=== PATIENT | male | born 1965 | race Caucasian/White ===

== ENCOUNTER 2016-11-11 13:28 | Emergency (ER) | payer OTHER ==
[~2016-11-11] VITALS: Ht 185.4 cm; Wt 136.0 kg
[~2016-11-11 13:28] MED LIST: ALLO300T2 PO; AMLO5TAB2 PO; ASPI-435 PO; ATEN50TA PO; CIALIS PO; CLON0.1T12 PO; CYCL10TA6 PO; HYDR25TA4 PO; LISI40TA PO; MELO15TA3 PO; PRLSR20 PO; SIME80CH23 PO; ZOLP10TA6 PO
[2016-11-11 13:33] VITALS: TEMP 36.5; Ht 185.4 cm; Wt 136.0 kg
[2016-11-11] MEDS ORDERED: LIDOCAINE/EPINEPH/TETRACAINE 1 EA SYR EXT STA (14:36)
--- NOTE | 2016-11-11 15:03 | EMERGENCY ROOM VISIT NOTE ---
History Report prepared by Adore: Jack Iraheta Under the Supervision of: Dr. Mark Villa M.D. First contact with patient: 14:27 Chief Complaint: FACIAL PAIN/INJURY Stated Complaint: CUTS ON FACE AND BLACK EYE History of Present Illness The patient is a 51 year old male who presents to the Emergency Room with complaints of constant facial pain since this morning after a fall. The patient states that he was drinking last night, and some time he fell into his night stand. The patient denies any headache, tooth pain, jaw pain, neck pain, shortness of breath, chest pain, abdominal pain or leg swelling. He states that his knees hurt, and he has a rash on his left arm. He states that his vision was bad this morning, though it has gotten better. The patient states that he is not on Coumadin, though he is on blood pressure medications. Source of History: patient Onset: this morning Position: other (face) Timing: constant Associated Symptoms: No neck pain, No chest pain, No SOB, No abdominal pain , No rash Note: Associated symptoms: Knee pain Review of Systems See HPI for pertinent positives & negatives. A total of 10 systems reviewed and were otherwise negative. Past Medical & Surgical Medical Problems: (1) Benign hypertension Old medical records were reviewed. Nurse's notes were reviewed and I agree with. Social History Smoking Status: Current Every Day Smoker Marital Status: Housing Status: lives with family Occupation Status: employed Current/Historical Medications Scheduled Amlodipine Besylate (Norvasc), 5 MG PO BID Aspirin (Aspirin 81), 81 MG PO DAILY Atenolol (Tenormin), 75 MG PO DAILY Clonidine Hcl (Catapres), 0.1 MG PO BID Hydrochlorothiazide (Hctz), 25 MG PO DAILY Lisinopril (Zestril), 40 MG PO DAILY Omeprazole (Prilosec), 20 MG PO DAILY Scheduled PRN Zolpidem Tartrate (Zolpidem Tartrate), 10 MG PO HS PRN for Insomnia Allergies Coded Allergies: Bupropion (Unverified Adverse Reaction, Intermediate, SKIN IRRITATION, ) Physical Exam Vital Signs Date Time Temp Pulse Resp B/P (MAP) Pulse Ox O2 Delivery O2 Flow Rate FiO2 11/11/16 17:21 99 18 159/91 96 11/11/16 15:30 62 17 166/92 96 Room Air 7/15/17 13:33 36.5 64 18 202/98 95 Room Air Physical Exam General: Non-ill appearing middle-aged male in no acute distress. GCS 15 HEENT: 1cm laceration of the right medical eyebrow. There is also a 2-3 cm laceration in the right lateral upper eyelid. These are relatively superficial and do not damage underlying structures but will will require closure with sutures. She has Bruising around the eye and and abrasion to the cheek on the right. No hyphema. Normal cephalic. Pupils are equal round and reactive to light. Extraocular movements are intact. Oropharynx is pink with moist mucous membranes. No swelling of the mouth lips or tongue. Neck: Supple with a midline trachea. No meningeal signs or stiffness, no JVD or bruits. No Stridor. Chest: Clear to auscultation bilaterally. No wheezes or rhonchi. No increased work of breathing. Heart: regular rate and rhythm. Abdomen: Soft nontender, nondistended without rebound guarding or rigidity. Extremities: Mild abrasions to the right knee. No cyanosis clubbing or edema. No calf tenderness or assymetry Spine/Back. Non tender to palpation. No CVA tenderness Skin: Good turgor without rashes. Neurologic exam: Cranial nerves two through 12 are intact. Motor and sensation are intact and symmetrical throughout. Medical Decision & Procedures ER Provider Diagnostic Interpretation: Radiology results as stated below per my review and radiologist interpretation: FACIAL BONES-MXILLOFAC WITHOUT CT DOSE: HISTORY: Trauma. Pain. eval for trauma TECHNIQUE: Multiaxial CT images of the maxillofacial region were performed and reformatted in the coronal plane without the use of contrast. COMPARISON: None. FINDINGS: The visualized cervical spine, skull base, pterygoid plates, nasal bones, lamina papyracea, orbital floors, mandible, and zygomatic arches are intact. No fractures. The orbits are unremarkable. Moderate right periorbital and prefrontal soft tissue edema. Mucous retention cyst right maxillary sinus. IMPRESSION: Right periorbital and prefrontal soft tissue edema. No acute bony abnormality. The above report was generated using voice recognition software. It may contain grammatical, syntax or spelling errors. Electronically signed by: Darian Currie M.D. 11/11/2016 3:42 PM Dictated Date/Time: 11/11/2016 3:38 PM RIGHT KNEE 1 OR 2 VIEWS ROUTINE CLINICAL HISTORY: eval for traumA Right pain COMPARISON: None. DISCUSSION: The bones and joint spaces appear intact. There is no evidence of fracture, dislocation or bony disease. There is no evidence for soft tissue swelling. IMPRESSION: Negative study. The above report was generated using voice recognition software. It may contain grammatical, syntax or spelling errors. Electronically signed by: Darian Currie M.D. 11/11/2016 3:29 PM Dictated Date/Time: 11/11/2016 3:29 PM LEFT KNEE 1 OR 2 VIEWS ROUTINE CLINICAL HISTORY: eval for trauma o pain COMPARISON: None. DISCUSSION: The bones and joint spaces appear intact. There is no evidence of fracture, dislocation or bony disease. There is no evidence for soft tissue swelling. IMPRESSION: Negative study. The above report was generated using voice recognition software. It may contain grammatical, syntax or spelling errors. Electronically signed by: Darian Currie M.D. 11/11/2016 3:29 PM Dictated Date/Time: 11/11/2016 3:28 PM HEAD WITHOUT CONTRAST (CT) CT DOSE: 1093.42 mGy.cm HISTORY: Trauma eval for trauma TECHNIQUE: Multiaxial CT images of the head were performed without the use of intravenous contrast. Comparison: None. Findings: The paranasal sinuses and mastoid air cells are clear. Moderate cerebellar as well as frontal atrophy are in no evidence for acute intracranial hemorrhage. Ventricular system is midline. Extracranial right periorbital edema. Impression: No acute intracranial abnormality. The above report was generated using voice recognition software. It may contain grammatical, syntax or spelling errors. Electronically signed by: Darian Currie M.D. 11/11/2016 3:37 PM Dictated Date/Time: 11/11/2016 3:36 PM Laboratory Results 11/11/16 15:00 Red Blood Count 4.80, Mean Corpuscular Volume 86.5, Mean Corpuscular Hemoglobin 30.0, Mean Corpuscular Hemoglobin Concent 34.7, Mean Platelet Volume 11.1, Neutrophils (%) (Auto) 82.8, Lymphocytes (%) (Auto) 11.6, Monocytes (%) (Auto) 4.7, Eosinophils (%) (Auto) 0.7, Basophils (%) (Auto) 0.1, Neutrophils # (Auto) 5.61, Lymphocytes # (Auto) 0.79, Monocytes # (Auto) 0.32, Eosinophils # (Auto) 0.05, Basophils # (Auto) 0.01 11/11/16 15:00 Test 11/11/16 15:00 11/11/16 15:21 White Blood Count 6.79 K/uL (4.8-10.8) Red Blood Count 4.80 M/uL (4.7-6.1) Hemoglobin 14.4 g/dL (14.0-18.0) Hematocrit 41.5 % (42-52) Mean Corpuscular Volume 86.5 fL (80-100) Mean Corpuscular Hemoglobin 30.0 pg (25-34) Mean Corpuscular Hemoglobin Concent 34.7 g/dl (32-36) Platelet Count 131 K/uL (130-400) Mean Platelet Volume 11.1 fL (7.4-10.4) Neutrophils (%) (Auto) 82.8 % Lymphocytes (%) (Auto) 11.6 % Monocytes (%) (Auto) 4.7 % Eosinophils (%) (Auto) 0.7 % Basophils (%) (Auto) 0.1 % Neutrophils # (Auto) 5.61 K/uL (1.4-6.5) Lymphocytes # (Auto) 0.79 K/uL (1.2-3.4) Monocytes # (Auto) 0.32 K/uL (0.11-0.59) Eosinophils # (Auto) 0.05 K/uL (0-0.5) Basophils # (Auto) 0.01 K/uL (0-0.2) RDW Standard Deviation 42.9 fL (36.4-46.3) RDW Coefficient of Variation 13.6 % (11.5-14.5) Immature Granulocyte % (Auto) 0.1 % Immature Granulocyte # (Auto) 0.01 K/uL (0.00-0.02) Anion Gap 6.0 mmol/L (3-11) Est Creatinine Clear Calc Drug Dose 135.9 ml/min Estimated GFR () 111.1 Estimated GFR (Non- 95.9 BUN/Creatinine Ratio 14.0 (10-20) Calcium Level 8.9 mg/dl (8.5-10.1) Total Bilirubin 0.5 mg/dl (0.2-1) Direct Bilirubin < 0.1 mg/dl (0-0.2) Aspartate Amino Transf (AST/SGOT) 43 U/L (15-37) Alanine Aminotransferase (ALT/SGPT) 54 U/L (12-78) Alkaline Phosphatase 50 U/L (45-117) Total Protein 7.2 gm/dl (6.4-8.2) Albumin 4.4 gm/dl (3.4-5.0) Lipase 89 U/L (73-393) Bedside Troponin I < 0.030 ng/ml (0-0.045) Laboratory studies as stated above per my review. Medications Administered Medications (Trade) Dose Ordered Sig/Giuliana Route Start Time Stop Time Status Last Admin Dose Admin Tetracaine/ Epinephrine/ Lidocaine (L.e.t. Gel 4%/ 1:100/0.5%) 1 ea NOW STAT EXT 11/11/16 14:36 11/11/16 14:40 DC 11/11/16 15:45 1 EA Procedure Location: face Total length: 3cm and 1cm Complexity: simple Verbal consent was obtained after the risks and benefits were explained, including but not limited to bleeding, scarring, infection, pain, and bone/joint /nerve damage. At this time, the risks of the procedure are less than the risks of NOT performing the procedure. A time out was taken and the correct patient and site identified. The skin was prepped with betadine. The target area was anesthetized with LET gel. Copious irrigation was performed using normal saline. The skin was re-prepped with betadine and a sterile field set. The wound was explored for foreign bodies and none found. Examination revealed no injury to deep structures such as tendons, bone, or significant blood vessels. Debridement was not performed. The wound edges were approximated using 6-0 Ethilon simple interrupted nylon sutures. Hemostasis and excellent approximation was achieved. Antibacterial ointment and a sterile dressing applied. Detailed wound care instructions and signs and symptoms of infection reviewed with the patient. No complications and the patient tolerated the procedure well. ECG Indication: other (facial injury) Rate (beats per minute): 60 Rhythm: normal sinus Findings: no acute ischemic change, no ectopy Comparison ECG Date: no prior available ED Course 1427: Past medical records reviewed. The patient was evaluated in room A4, and a complete history and physical examination were performed. 1436: L.E.T. Gel 4%/1:100/0.5% 1ea EXT 1531: I reevaluated the patient, and noticed that he had a laceration on his eye lid. 1641: I reevaluated the patient, and I performed a laceration repair. I discussed the results and treatment plan with him. He verbalized agreement of the treatment plan. The patient was discharged home. Medical Decision Differentials include, but are not limited to; head injury, laceration, traumatic injury, orthopedic injury, arrhythmia, electrolyte or metabolic abnormality. Blood Pressure Screening: Patient was found to have a slightly elevated blood pressure due to circumstances. I do not believe that the patient requires hypertension monitoring. Medication Reconciliation: I attest that I have personally reviewed the patient' s current medication list. This patient comes in as described above. He suffered a fall last night he had apparently been drinking. He has some facial trauma as well as 2 lacerations. He has no visual change. On exam, he has no hyphema or proptosis. He has normal ocular movements. CAT scan of his head and face are unremarkable for any fracture or significant injuries. He has no evidence of significant trauma to his knees and x-rays were negative. He has no evidence suggest acute coronary syndrome or arrhythmia with normal troponin and EKG. I did repair the lacerations as outlined above he tolerated this well. These sutures will need to be removed in 5 days. He believes is up-to-date on his tetanus booster. He will be discharged home he will return if: Any problems with the wound such as redness, pus, fever, drainage, any new problems or concerns. He is happy the plan and discharged to home. Impression Primary Impression: Facial laceration Additional Impressions: Facial contusion Fall Scribe Attestation The scribe's documentation has been prepared under my direction and personally reviewed by me in its entirety. I confirm that the note above accurately reflects all work, treatment, procedures, and medical decision making performed by me. Departure Information Dispostion Home / Self-Care Referrals Yasemin Newsome (PCP) Forms HOME CARE DOCUMENTATION FORM, IMPORTANT VISIT INFORMATION Patient Instructions [facility] Additional Instructions Rest. Drink plenty of fluids. Apply bacitracin to wound twice a day Return if: Redness pus, fever, drainage, any problems with the wound, headache, any new problems or concerns, visual problems Follow-up in 5 days here suggest call the for suture removal, sooner if any problems Problem Qualifiers
[2016-11-11 15:20] LABS: BASO % 0.1 %; BASO ABS # 0.01 K/uL (0-0.2); COMPLETE YES; EOS % 0.7 %; HEMATOCRIT 41.5 % (42-52); IG% 0.1 %; LYMPH % 11.6 %; LYMPH ABS # 0.79 K/uL (1.2-3.4); MEAN CELL VOLUME 86.5 fL (80-100); MEAN CORPUSCULAR HGB CONC 34.7 g/dl (32-36); MEAN PLATELET VOLUME 11.1 fL (7.4-10.4); MONO % 4.7 %; NEUT % 82.8 %; PLATELET COUNT 131 K/uL (130-400); WHITE BLOOD COUNT 6.79 K/uL (4.8-10.8)
--- NOTE | 2016-11-11 15:30 | DIAGNOSTIC IMAGING REPORT ---
RIGHT KNEE 1 OR 2 VIEWS ROUTINE CLINICAL HISTORY: eval for traumA Right pain COMPARISON: None. DISCUSSION: The bones and joint spaces appear intact. There is no evidence of fracture, dislocation or bony disease. There is no evidence for soft tissue swelling. IMPRESSION: Negative study. The above report was generated using voice recognition software. It may contain grammatical, syntax or spelling errors. Electronically signed by: Darian Currie M.D. 11/11/2016 3:29 PM Dictated Date/Time: 11/11/2016 3:29 PM
--- NOTE | 2016-11-11 15:30 | DIAGNOSTIC IMAGING REPORT ---
LEFT KNEE 1 OR 2 VIEWS ROUTINE CLINICAL HISTORY: eval for trauma o pain COMPARISON: None. DISCUSSION: The bones and joint spaces appear intact. There is no evidence of fracture, dislocation or bony disease. There is no evidence for soft tissue swelling. IMPRESSION: Negative study. The above report was generated using voice recognition software. It may contain grammatical, syntax or spelling errors. Electronically signed by: Darian Currie M.D. 11/11/2016 3:29 PM Dictated Date/Time: 11/11/2016 3:28 PM
--- NOTE | 2016-11-11 15:38 | DIAGNOSTIC IMAGING REPORT ---
HEAD WITHOUT CONTRAST (CT) CT DOSE: 1093.42 mGy.cm HISTORY: Trauma eval for trauma TECHNIQUE: Multiaxial CT images of the head were performed without the use of intravenous contrast. Comparison: None. Findings: The paranasal sinuses and mastoid air cells are clear. Moderate cerebellar as well as frontal atrophy are in no evidence for acute intracranial hemorrhage. Ventricular system is midline. Extracranial right periorbital edema. Impression: No acute intracranial abnormality. The above report was generated using voice recognition software. It may contain grammatical, syntax or spelling errors. Electronically signed by: Darian Currie M.D. 11/11/2016 3:37 PM Dictated Date/Time: 11/11/2016 3:36 PM
[2016-11-11 15:40] LABS: ALT/SGPT 54 U/L (12-78); BLOOD UREA NITROGEN 13 mg/dl (7-18); CALCIUM 8.9 mg/dl (8.5-10.1); CARBON DIOXIDE 28 mmol/L (21-32); CHLORIDE 102 mmol/L (98-107); CREATININE 0.91 mg/dl (0.60-1.40); GLUCOSE 135 mg/dl (70-99); POTASSIUM 3.7 mmol/L (3.5-5.1); SODIUM 136 mmol/L (136-145)
[2016-11-11 15:43] LABS: ALKALINE PHOSPHATASE 50 U/L (45-117); AST/SGOT 43 U/L (15-37)
--- NOTE | 2016-11-11 15:43 | DIAGNOSTIC IMAGING REPORT ---
FACIAL BONES-MXILLOFAC WITHOUT CT DOSE: HISTORY: Trauma. Pain. eval for trauma TECHNIQUE: Multiaxial CT images of the maxillofacial region were performed and reformatted in the coronal plane without the use of contrast. COMPARISON: None. FINDINGS: The visualized cervical spine, skull base, pterygoid plates, nasal bones, lamina papyracea, orbital floors, mandible, and zygomatic arches are intact. No fractures. The orbits are unremarkable. Moderate right periorbital and prefrontal soft tissue edema. Mucous retention cyst right maxillary sinus. IMPRESSION: Right periorbital and prefrontal soft tissue edema. No acute bony abnormality. The above report was generated using voice recognition software. It may contain grammatical, syntax or spelling errors. Electronically signed by: Darian Currie M.D. 11/11/2016 3:42 PM Dictated Date/Time: 11/11/2016 3:38 PM
[2016-11-11 17:21] VITALS: BP 159/91; PULSE 99; O2SAT 96
== END 2016-11-11 17:20 | disposition home or self-care (01) ==
LOC: C.EDB 13:30 → C.EDA 17:20
DX: S01.111A Laceration without foreign body of right eyelid and periocular area, initial encounter (principal); S00.11XA Contusion of right eyelid and periocular area, initial encounter; S00.81XA Abrasion of other part of head, initial encounter; W18.30XA Fall on same level, unspecified, initial encounter; M25.561 Pain in right knee; M25.562 Pain in left knee; I10 Essential (primary) hypertension; F17.200 Nicotine dependence, unspecified, uncomplicated; Z79.82 Long term (current) use of aspirin

== ENCOUNTER 2016-11-17 11:20 | Emergency (ER) | payer OTHER ==
[~2016-11-17] VITALS: Ht 188 cm; Wt 133.8 kg
[~2016-11-17 11:20] MED LIST changes: -ALLO300T2 PO; -CIALIS PO; -CYCL10TA6 PO; -MELO15TA3 PO; -SIME80CH23 PO
[2016-11-17 11:22] VITALS: BP 178/103; PULSE 61; TEMP 36.7; O2SAT 96; Ht 188 cm; Wt 133.8 kg
--- NOTE | 2016-11-17 11:55 | EMERGENCY ROOM VISIT NOTE ---
ED Visit Note First contact with patient: 11:41 CHIEF COMPLAINT: Suture removal This patient returns to the ED today for removal of sutures that were placed 6 days ago. There has been no swelling, redness, or drainage from the wound. The patient feels like the laceration is healing well. REVIEW OF SYSTEMS: Head: No headache, injury or neck pain. Skin: No rash, new lesions, or masses. General: No fever or chills, fatigue, loss of appetite , or significant recent weight gain or loss. PMH: The patient is healthy; there is no significant medical or surgical history. SOCIAL HISTORY: Patient lives at home. PHYSICAL EXAM: Vital Signs: Reviewed Nurse's notes. There is a sutured wound on the right eye region with no signs of infection. There is no erythema, swelling, or tenderness. EMERGENCY DEPARTMENT COURSE: The sutures were removed without any difficulty and there was no separation of the wound edges. The patient's blood pressure was found to be elevated here today, he notes that he checks his blood pressure regularly and has been taking medication for many years. This is believed to be situational, and he is to follow-up with his family doctor. DIAGNOSIS: Healing laceration and suture removal Problem List Medical Problems: (1) Benign hypertension Status: Chronic Current/Historical Medications Scheduled Amlodipine Besylate (Norvasc), 5 MG PO BID Aspirin (Aspirin 81), 81 MG PO DAILY Atenolol (Tenormin), 75 MG PO DAILY Clonidine Hcl (Catapres), 0.1 MG PO BID Hydrochlorothiazide (Hctz), 25 MG PO DAILY Lisinopril (Zestril), 40 MG PO DAILY Omeprazole (Prilosec), 20 MG PO DAILY Scheduled PRN Zolpidem Tartrate (Zolpidem Tartrate), 10 MG PO HS PRN for Insomnia Allergies Coded Allergies: Bupropion (Unverified Adverse Reaction, Intermediate, SKIN IRRITATION, ) Vital Signs Date Time Temp Pulse Resp B/P (MAP) Pulse Ox O2 Delivery O2 Flow Rate FiO2 11/17/16 11:22 36.7 61 18 178/103 96 Room Air Departure Information Impression Primary Impression: Encounter for removal of sutures Dispostion Home / Self-Care Condition GOOD Referrals No Doctor, Assigned (PCP) Patient Instructions [facility] Additional Instructions DISCHARGE INSTRUCTIONS AND TREATMENT: Wash any remaining crusts off of the wound today and resume your normal activities.
== END 2016-11-17 12:02 | disposition home or self-care (01) ==
LOC: C.EDB 11:22 → C.EDD 12:02
DX: S01.111D Laceration without foreign body of right eyelid and periocular area, subsequent encounter (principal); X58.XXXD Exposure to other specified factors, subsequent encounter; I10 Essential (primary) hypertension; Z79.82 Long term (current) use of aspirin

== ENCOUNTER 2024-01-18 15:20 | Observation (INO) ==
--- NOTE | 2024-01-18 15:41 | Emergency Department Note ---
Impression & Plan Acute confusion, Chest pain, Anemia, Leukopenia, Hyponatremia ED Provider Note NAME: MUNIRA BARLOW AGE: 58 SEX: M : 1965 ARRIVES VIA: Ambulance INFORMANT: Patient ED PROVIDER(S): Jaxson Beach DO CHIEF COMPLAINT: Confusion, chest pain HPI: Patient is a 58-year-old male with a past medical history of polyneuropathy, hypertension and CAD who presents to the ER for not feeling well at this time. He notes around 1230 he had about 5 to 10 minutes worse of a chest pain in the middle of the chest going across. No arm pain or jaw pain. No shortness of breath. 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 The confusion eventually cleared up and he was able to call a friend to call police and brought him in. He denies any headache but admits to worsening blurry vision. No chest pain or shortness of breath now. No arm pain or jaw pain. No weakness or numbness in the arms or legs. No other exacerbating or remitting factors. He admits to a previous cath with occluded coronary. ADDITIONAL HISTORY OBTAINED: Per HPI Chronic Medical/Social Conditions Affecting Care: Per HPI PAST MEDICAL HISTORY:See Below PAST SURGICAL HISTORY:See Below FAMILY HISTORY:See Below SOCIAL HISTORY:See Below HOME MEDICATIONS:See Below ALLERGIES:See Below VITALS:See Below PHYSICAL EXAMINATION: GENERAL: Sitting up in bed, alert, well appearing, well nourished, no distress, non-toxic EYE EXAM: normal conjunctiva. PERRL and EOM's intact. OROPHARYNX: no exudate, no erythema, lips, buccal mucosa, and tongue normal and mucous membranes are moist NECK: supple, no nuchal rigidity, no adenopathy, non-tender LUNGS: Clear to auscultation. Normal chest wall mechanics HEART: no murmurs, S1 normal and S2 normal ABDOMEN: abdomen soft, non-tender, normo-active bowel sounds, no masses, no rebound or guarding. BACK: Back is symmetrical on inspection and there is no deformity, no midline tenderness, no CVA tenderness. SKIN: no rashes and no bruising UPPER EXTREMITIES: upper extremities are grossly normal. LOWER EXTREMITIES: No pitting edema. NEURO EXAM: Normal sensorium, cranial nerves II-XII intact, normal speech, no weakness of arms, no weakness of legs. No drift. Finger to nose intact. Gross sensation intact. MEDICAL DECISION MAKING: Patient is a 58-year-old male who presents ER for the above-stated complaint. IV was established medicos obtained. Labs show leukopenia 3.7. Mild anemia 11. BMP with a hyponatremia at 130. LFTs with mild transaminitis. Troponin was negative. Lipase is normal. [facility] at 1.1. CT angios of the head and neck were negative. Patient is complete neurologically intact. He was updated bedside. Discussed case with the hospitalist for further evaluation management treatment. Consults/Care Managements Discussions: Per [facility] Triage Nursing notes reviewed. Limited review of prior medical records performed Vital Signs: reviewed and remarkable for no significant abnormalities Differential diagnosis: Cardiac ischemia, aortic dissection, pulmonary embolism, pneumothorax, pneumonia, pericarditis, myocarditis, esophageal rupture, GERD, cholecystitis, pancreatitis, musculoskeletal, as well as other pathologies. ER treatment provided: See below Diagnostics interpreted by me include EKG and cardiac monitoring as listed below: -Cardiac Monitoring: An order was placed for continuous cardiac monitoring. The monitor shows a rate of 70 with sinus rhythm. -ECG: Sinus rhythm at 74 Normal axis No PVCs QTc 452 -Laboratory studies:Interpreted by me as stated above in MDM and shown below. Imaging studies: Xrays: As interpreted by me: Portable AP upright 1 view of the chest shows no focal infiltrate CTs show: CT angios of the head neck showed no acute pathology Procedures:none Critical Care: None Past Med/Surg History Problem List (Updated 01/18/24 @ 21:44 by Jaxson Beach DO) Hyponatremia (Acute) Leukopenia (Acute) Anemia (Acute) Chest pain (Acute) Acute confusion (Acute) Stroke-like symptoms Lumbar spondylosis Chronic gluteal pain Lumbar radiculopathy Encounter for pre-operative examination Left ankle pain Left ankle sprain Greater trochanteric bursitis of right hip Tear of gluteus medius tendon Atrophy of muscle of lower leg Hip pain, chronic Idiopathic polyneuropathy Osteoarthritis of right knee Tear of peroneal tendon of left foot Hx s/p rehab and boot x 2 years (no surgery) Left ankle instability Medical History (Updated 01/18/24 @ 21:44 by Jaxson Beach DO) Morbid obesity Osteoarthritis 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 Sleep apnea CPAP Follows with [facility] pulmonology Anxiety and depression Gout Hypertension Follows with [facility] Surgical History Hx of colonoscopy Hx of removal of cyst Right ear Hx of arthroscopy of shoulder Left + repair Family History Other Diabetes Stroke Social History Smoking Status: Former smoker Second Hand Exposure: No; Do You Dip or Chew Tobacco: Yes (1-2 cans/day; advised none DOS); Hx Alcohol Use: Yes Alcohol type: hard liquor Hx Substance Use: No Preferred Language: Czech Communication Ability: Effective Hearing Ability: Normal Toe Laster Required: No Beliefs That Will Affect Care: None marital status: Current Living Situation: Spouse and Family current occupational status: employed 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 Feels Safe at Home: Yes Assistive Devices: CPAP Allergies Allergies Allergy/AdvReac Type Severity Reaction Status Date / Time bupropion AdvReac Intermediate SKIN Verified 01/18/24 19:31 IRRITATION Home Meds Home Medications Medication Instructions Recorded Confirmed allopurinol 300 mg tablet 600 mg PO QAM 01/22/20 01/18/24 clonidine HCl 0.3 mg tablet 0.3 mg PO BID 01/22/20 01/18/24 escitalopram oxalate 10 mg tablet 10 mg PO QAM 01/22/20 01/18/24 lisinopril 40 mg tablet 20 mg PO QAM 01/22/20 01/18/24 lithium carbonate 300 mg capsule 450 mg PO HS 01/22/20 01/18/24 loratadine 10 mg tablet 10 mg PO QAM 01/22/20 01/18/24 zolpidem 10 mg tablet 10 mg PO HS PRN Sleep 12/27/20 01/18/24 spironolactone 50 mg tablet 50 mg PO QAM 06/21/22 01/18/24 aspirin 81 mg tablet,delayed 81 mg PO QAM 01/30/23 01/18/24 release isosorbide mononitrate 60 mg 60 mg PO QAM 04/08/23 01/18/24 tablet,extended release 24 hr metoprolol succinate 25 mg 25 mg PO QAM 04/08/23 01/18/24 tablet,extended release 24 hr omeprazole 20 mg capsule,delayed 20 mg PO DAILYBB 04/08/23 01/18/24 release terazosin 5 mg capsule 5 mg PO HS 04/08/23 01/18/24 furosemide 20 mg tablet 20 mg PO Q OTHER DAY 01/18/24 01/18/24 Results & Data (ED) Vital Signs Vital Signs - 24 hr 01/18/24 15:22 01/18/24 15:22 01/18/24 15:28 Temperature 36.9 C Temperature Source Oral Pulse Rate 73 74 Pulse Rate [Apical] Respiratory Rate 20 Blood Pressure 158/80 H Blood Pressure [Right Arm] Blood Pressure Mean 106 Blood Pressure Mean [Right Arm] Pulse Oximetry 96 96 Oxygen Delivery Method Room Air Room Air Sepsis Recent Fever Within 48 Hours No Sepsis New/Unexplained Change in Mental Status N/A Sepsis Action Taken by Nursing No Action Required 01/18/24 15:45 01/18/24 17:00 Temperature Temperature Source Pulse Rate Pulse Rate [Apical] 63 Respiratory Rate 21 Blood Pressure Blood Pressure [Right Arm] 153/81 H Blood Pressure Mean Blood Pressure Mean [Right Arm] 105 Pulse Oximetry 97 96 Oxygen Delivery Method Room Air Sepsis Recent Fever Within 48 Hours Sepsis New/Unexplained Change in Mental Status Sepsis Action Taken by Nursing Laboratory Data 01/18/24 15:45 01/18/24 15:45 Lab Results 01/18/24 Range/Units 15:45 WBC 3.71 L (4.8-10.8) K/ul RBC 3.27 L (4.70-6.10) M/uL Hgb 11.0 L (14.0-18.0) g/dl Hct 32.8 L (42.0-52.0) % MCV 100.3 H (80.0-100.0) fL MCH 33.6 (25.0-34.0) pg MCHC 33.5 (32.0-36.0) g/dL RDW Std Deviation 49.6 H (36.4-46.3) fL RDW Coeff of Sonia 13.6 (11.5-14.5) % Plt Count 59 L (130-400) K/uL MPV 10.9 (9.4-12.4) fL Immature Gran % (Auto) 0.5 % Neut % (Auto) 81.2 % Lymph % (Auto) 9.4 % Hood % (Auto) 7.0 % Eos % (Auto) 1.6 % Baso % (Auto) 0.3 % Neut # (Auto) 3.01 (1.40-6.50) K/uL Lymph # (Auto) 0.35 L (1.20-3.40) K/uL Hood # (Auto) 0.26 (0.11-0.59) K/uL Eos # (Auto) 0.06 (0.00-0.50) K/uL Baso # (Auto) 0.01 (0.00-0.20) K/uL Immature Gran # (Auto) 0.02 (0.01-0.20) K/uL Sodium 130 L (136-145) mmol/L Potassium 4.5 (3.5-5.1) mmol/L Chloride 102 (98-107) mmol/L Carbon Dioxide 21 (21-32) mmol/L Anion Gap 7 (3-11) BUN 19 (6-23) mg/dl Creatinine 1.08 (0.6-1.4) mg/dl Est Cr Clr Drug Dosing 113.8 ml/min Est GFR ( Amer) 86.0 ml/min Est GFR (Non-Af Amer) 74.2 ml/min BUN/Creatinine Ratio 17.6 (10-20) Glucose 122 H (70-99(Fasting)) mg/dl Calcium 9.4 (8.6-10.3) mg/dl Total Bilirubin 0.4 (0.2-1.0) mg/dl AST 64 H (13-39) U/L ALT 85 H (7-52) U/L Alkaline Phosphatase 36 (34-104) U/L Troponin I High Sens 3.2 (0-20) pg/ml Total Protein 6.2 (6.0-8.3) gm/dl Albumin 4.3 (3.4-5.0) gm/dl Globulin 1.9 L (2.5-4.0) gm/dl Albumin/Globulin Ratio 2.3 H (0.9-2) Lipase 34 (11-82) U/L [facility] 1.1 (0.6-1.2) mmol/L Administered Medications Discontinued Medications Sodium Chloride (Nss) 1,000 mls @ 999 mls/hr IV .Q1H1M ONE Stop: 09/20/24 16:36 Last Infusion: 01/18/24 17:59 Dose: Infused Documented By: Admin: 01/18/24 16:27 Dose: 999 mls/hr Documented By: ELO Ioversol (Optiray 320 125ml) 118 ml IV ONCE ONE Stop: 01/18/24 17:23 Last Admin: 01/18/24 17:23 Dose: 118 ml Documented By: EDK Imaging Data Radiologist's Impression: Chest X-Ray 01/18/24 15:24 XR chest 1V portable HISTORY: Chest pain, nonspecific COMPARISON: Chest 12/15/2023. FINDINGS: No pneumothorax. No pleural effusions. The cardiac silhouette remains enlarged. No focal lung consolidations to suggest a pneumonia. No evidence for pulmonary edema. No acute fractures identified. A few bibasilar linear densities favor subsegmental atelectasis or scarring. There are low lung volumes. IMPRESSION: No significant change compared to the prior study. No acute process. Stable cardiomegaly. ACT 112: Negative or not required by law. Electronically signed by: Patrick Swanson M.D. 01/18/2024 4:00 PM Head CTA 01/18/24 15:36 CT angio head wo/w CLINICAL HISTORY: Altered mental status. COMPARISON STUDY: Head CT and CTA of the head December 15, 2023. TECHNIQUE: Unenhanced and arterial phase imaging of the head was performed. Intravenous injection of 120 cc of Optiray 320 IV was uneventful. Sagittal and coronal reconstructions were viewed as well as maximal intensity projections on an independent 3-D workstation. Automated exposure control was utilized for the study. A dose lowering technique was utilized adhering to the principles of ALARA. FINDINGS: No acute intracranial hemorrhage, midline shift or mass effect is present. Ventricular system is stable. The basal cisterns are patent. There are nodular axial collections. Cerebellar atrophy is again noted. There are no findings to suggest acute dural sinus thrombosis or acute territorial infarct. A large right mastoid effusion with fluid within the right middle ear is unchanged. The bilateral M1, M2, A1 and A2 segments are patent. There is moderate plaque within the bilateral cavernous carotids without significant stenosis. No intracranial vessel occlusion is identified. There is persistence of the right posterior cerebral artery. There is no intracranial aneurysm. IMPRESSION: 1. No acute intracranial findings. 2. No large vessel occlusion. No intracranial aneurysm. 3. No change in a right mastoid effusion with fluid within the right middle ear. ACT 112: Negative or not required by law. Electronically signed by: Darinel Yusuf M.D. 01/18/2024 5:42 PM Neck CTA 01/18/24 15:36 CT ANGIOGRAPHY OF THE NECK WITH CONTRAST CLINICAL HISTORY: Altered mental status. COMPARISON STUDY: CTA of the neck December 15, 2023. Technique: CT angiography of the carotid and vertebral arteries was obtained using Optiray and 3D reconstruction on an independent workstation. NASCET criteria was utilized. Automated exposure control was utilized for the study. A dose lowering technique was utilized adhering to the principles of ALARA. CT DOSE: 1249.85 mGy.cm Findings: Visualized portions of the lung apices are unremarkable. There is no cervical spine fracture. There is no cervical lymphadenopathy. There is extensive calcified plaque within the right carotid bifurcation which results in 30% stenosis of the proximal right internal carotid artery. There is moderate plaque within the proximal left internal carotid artery without stenosis. There is moderate stenosis at the origin of the right vertebral artery, suboptimally assessed on this exam. Left vertebral artery is patent. There is no aneurysm or dissection within the neck. Tortuosity of the distal cervical bilateral internal carotid arteries is incidentally noted. IMPRESSION: 1. 30% stenosis of the proximal right internal carotid artery due to calcified atherosclerotic plaque. No stenoses within the cervical left internal carotid artery. 2. Moderate stenosis at the origin of the right vertebral artery. ACT 112: Negative or not required by law. Electronically signed by: Darinel Yusuf M.D. 01/18/2024 5:56 PM Discharge Plan Visit Data Chief Complaint: Chest Pain Stated Complaint: Chest pain ED Provider: Jaxson Beach Discharge Problem: Acute confusion, Chest pain, Anemia, Leukopenia, Hyponatremia Patient Disposition: Admitted As Inpatient Discharge Instructions Interventions: ED Discharge Assessment Last Done: 01/18/24 20:30 Discharge Problem: Chest pain Qualifiers: Chest pain type: unspecified Qualified Code(s): R07.9 - Chest pain, unspecified Anemia Qualifiers: Anemia type: unspecified type Qualified Code(s): D64.9 - Anemia, unspecified Leukopenia Qualifiers: Leukopenia type: unspecified Qualified Code(s): D72.819 - Decreased white blood cell count, unspecified
--- NOTE | 2024-01-18 16:02 | XRay Report ---
XR chest 1V portable HISTORY: Chest pain, nonspecific COMPARISON: Chest 12/15/2023. FINDINGS: No pneumothorax. No pleural effusions. The cardiac silhouette remains enlarged. No focal oscar ng consolidations to suggest a pneumonia. No evidence for pulmonary edema. No acute fractures identif ied. A few bibasilar linear densities favor subsegmental atelectasis or scarring. There are low lung volumes. IMPRESSION: No significant change compared to the prior study. No acute process. Stable cardiomegaly. ACT 112: Negative or not required by law. Electronically signed by: Patrick Swanson M.D. 01/18/2024 4:00 PM
[2024-01-18 16:11] LABS: Basophils # (auto) 0.01 K/uL (0.00-0.20); Basophils % (auto) 0.3 %; Eosinophils # (auto) 0.06 K/uL (0.00-0.50); Eosinophils % (auto) 1.6 %; Hematocrit (blood only) 32.8 % (42.0-52.0); Immature Granulocytes # (auto) 0.02 K/uL (0.01-0.20); Immature Granulocytes % (auto) 0.5 %; Lymphocytes # (auto) 0.35 K/uL (1.20-3.40); Lymphocytes % (auto) 9.4 %; Mean Corpuscular Hemoglobin 33.6 pg (25.0-34.0); Mean Corpuscular Hgb Conc 33.5 g/dL (32.0-36.0); Mean Corpuscular Volume 100.3 fL (80.0-100.0); Mean Platelet Volume 10.9 fL (9.4-12.4); Monocytes # (auto) 0.26 K/uL (0.11-0.59); Neutrophils # (auto) 3.01 K/uL (1.40-6.50); Neutrophils % (auto) 81.2 %; Platelet Count 59 K/uL (130-400); RDW Coefficient of Variation 13.6 % (11.5-14.5); RDW Standard Deviation 49.6 fL (36.4-46.3); Red Blood Count 3.27 M/uL (4.70-6.10); White Blood Count 3.71 K/ul (4.8-10.8)
[2024-01-18] MEDS: SODIUM CHLORIDE 0.9% 1,000 ML IV ONE (16:27)
[2024-01-18 16:32] LABS: Albumin Globulin Ratio 2.3 (0.9-2); Albumin Level 4.3 gm/dl (3.4-5.0); BUN Creatinine Ratio 17.6 (10-20); Bilirubin,Total 0.4 mg/dl (0.2-1.0); Calcium 9.4 mg/dl (8.6-10.3); Creatinine Clr Calc Pharmacy 113.8 ml/min; Est GFR (Non-African American) 74.2 ml/min; Globulin 1.9 gm/dl (2.5-4.0); Potassium 4.5 mmol/L (3.5-5.1); Total Protein 6.2 gm/dl (6.0-8.3)
[2024-01-18 16:37] LABS: Troponin I High Sensitivity 3.2 pg/ml (0-20)
[2024-01-18] MEDS: OPTIRAY 320 125ml IV ONE (17:23)
--- NOTE | 2024-01-18 17:43 | CT Scan Report ---
CT angio head wo/w CLINICAL HISTORY: Altered mental status. COMPARISON STUDY: Head CT and CTA of the head December 15, 2023. TECHNIQUE: Unenhanced and arterial phase imaging of the head was performed. Intravenous injection of 120 cc of Optiray 320 IV was uneventful. Sagittal and coronal reconstructions were viewed as well as maximal intensity projections on an independent 3-D workstation. Automated exposure control was utili zed for the study. A dose lowering technique was utilized adhering to the principles of ALARA. FINDINGS: No acute intracranial hemorrhage, midline shift or mass effect is present. Ventricular syst em is stable. The basal cisterns are patent. There are nodular axial collections. Cerebellar atrophy is again noted. There are no findings to suggest acute dural sinus thrombosis or acute territorial in farct. A large right mastoid effusion with fluid within the right middle ear is unchanged. The bilate ral M1, M2, A1 and A2 segments are patent. There is moderate plaque within the bilateral cavernous ca rotids without significant stenosis. No intracranial vessel occlusion is identified. There is p ersistence of the right posterior cerebral artery. There is no intracranial aneurysm. IMPRESSION: 1. No acute intracranial findings. 2. No large vessel occlusion. No intracranial aneurysm. 3. No change in a right mastoid effusion with fluid within the right middle ear. ACT 112: Negative or not required by law. Electronically signed by: Darinel Yusuf M.D. 01/18/2024 5:42 PM
--- NOTE | 2024-01-18 17:58 | CT Scan Report ---
CT ANGIOGRAPHY OF THE NECK WITH CONTRAST CLINICAL HISTORY: Altered mental status. COMPARISON STUDY: CTA of the neck December 15, 2023. Technique: CT angiography of the carotid and vertebral arteries was obtained using Optiray and 3D rec onstruction on an independent workstation. NASCET criteria was utilized. Automated exposure control was utilized for the study. A dose lowering technique was utilized adhering to the principles of ALA RA. CT DOSE: 1249.85 mGy.cm Findings: Visualized portions of the lung apices are unremarkable. There is no cervical spine fractur e. There is no cervical lymphadenopathy. There is extensive calcified plaque within the right carotid bifurcation which results in 30% stenosis of the proximal right internal carotid artery. There is mo derate plaque within the proximal left internal carotid artery without stenosis. There is moderate st enosis at the origin of the right vertebral artery, suboptimally assessed on this exam. Left vertebra l artery is patent. There is no aneurysm or dissection within the neck. Tortuosity of the distal cerv ical bilateral internal carotid arteries is incidentally noted. IMPRESSION: 1. 30% stenosis of the proximal right internal carotid artery due to calcified atherosclerotic plaque . No stenoses within the cervical left internal carotid artery. 2. Moderate stenosis at the origin of the right vertebral artery. ACT 112: Negative or not required by law. Electronically signed by: Darinel Yusuf M.D. 01/18/2024 5:56 PM
--- NOTE | 2024-01-18 20:43 | History & Physical Report ---
Date of Service January 18, 2024 Assessment & Plan (1) Stroke-like symptoms: Plan Patient is a 58-year-old male with past medical history significant for bipolar disorder,sleep apnea, CAD, hypertension, chronic diastolic heart failure, prediabetes, gout, GERD, presenting with concern for episodes of dizziness and confusion while driving as well as chest pain. Altered mental status, transient Dizziness Strokelike symptoms patient with known history of intermittent orthostasis, hyponatremia. Previous dizziness improved after decrease in terazosin Head CTA unremarkable Neck CTA noting "30% stenosis of the proximal right internal carotid artery due to calcified atherosclerotic plaque" and "Moderate stenosis at the origin of the right vertebral artery." Brain MRI pending Echo pending Orthostatic vitals pending Lyme screen pending UA pending PT OT eval, speech eval Neurology consult appreciate further recs Chest pain EKG with no acute changes Troponin x 1 within normal limits, continue to trend Echo pending as above Continue to monitor on telemetry Chronic alcohol use Patient states that he drinks 2 shot glasses daily of [employer] [place] States he has done this for a year, states before that he drank beer for about 10 years daily Last drink was yesterday AWSS at risk protocol with as needed Ativan banana bag ordered Continue to monitor on telemetry Pancytopenia Anemia Patient pancytopenic CBC in July 2022 in [facility] was normal at that time Peripheral smear pending Anemia panel with iron studies, ferritin, folate and B12 pending Hyponatremia Chronic history of this Sodium 130 on admission urine studies pending received a liter of fluid in the emergency room Continue to monitor with a.m. labs Continue other home meds as ordered. DVT prophylaxis: SCDs in the setting of thrombocytopenia Diet: Heart healthy Dispo: Admit to med/surg with telemetry History of Present Illness Chief Complaint: Dizziness, confusion Primary Care Provider: Yasemin Newsome PA-C Patient is a 58-year-old male with past medical history significant for bipolar disorder,sleep apnea, CAD, hypertension, chronic diastolic heart failure, prediabetes, gout, GERD, presenting with concern for episodes of dizziness and confusion while driving as well as chest pain. 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 Noted dizziness and episodes of confusion. States he already has cataracts and knows he should not be driving so he pulled over with episode of dizziness and confusion. States that he has had 3 episodes of dizziness and confusion this week and this has him very concerned. States that it feels like sometimes he cannot find words or he "" zones out." States that when the ambulance came he was able to answer some questions but not others. At the time of admission denies current symptoms states that chest pain and confusion has resolved. States this is the first time that he has had associated chest pain, does follow with cardiology and states he was told that his heart is "good". Epic chart review shows patient has had intermittent orthostatic hypotension as well as dizziness and has been having his medications adjusted to help. Terazosin has been decreased. States his spironolactone was also recently decreased. States that he is typically prescribed lithium 450 mg for his bipolar however the pharmacy does not have the 150 mg pill in stock. Leaves that his symptoms are related to his medications. Patient is agreeable to staying overnight but jokingly asks what time he will be discharged in the morning. Patient states that he drinks 2 shot glasses daily of Instant [employer]. States he has done this for a year, states before that he drank beer for about 10 years daily but was told to stop that. Last drink was yesterday. Allergies Allergy/AdvReac Type Severity Reaction Status Date / Time bupropion AdvReac Intermediate SKIN Verified 01/18/24 19:31 IRRITATION Home Medications Medication Instructions Recorded Confirmed Type allopurinol 300 mg tablet 600 mg PO QAM 01/22/20 01/18/24 History clonidine HCl 0.3 mg tablet 0.3 mg PO BID 01/22/20 01/18/24 History escitalopram oxalate 10 mg tablet 10 mg PO QAM 01/22/20 01/18/24 History lisinopril 40 mg tablet 20 mg PO QAM 01/22/20 01/18/24 History lithium carbonate 300 mg capsule 450 mg PO HS 01/22/20 01/18/24 History loratadine 10 mg tablet 10 mg PO QAM 01/22/20 01/18/24 History zolpidem 10 mg tablet 10 mg PO HS PRN Sleep 12/27/20 01/18/24 History spironolactone 50 mg tablet 50 mg PO QAM 06/21/22 01/18/24 History aspirin 81 mg tablet,delayed 81 mg PO QAM 10/03/23 09/20/24 History release isosorbide mononitrate 60 mg 60 mg PO QAM 04/08/23 01/18/24 History tablet,extended release 24 hr metoprolol succinate 25 mg 25 mg PO QAM 04/08/23 01/18/24 History tablet,extended release 24 hr omeprazole 20 mg capsule,delayed 20 mg PO DAILYBB 04/08/23 01/18/24 History release terazosin 5 mg capsule 5 mg PO HS 04/08/23 01/18/24 History furosemide 20 mg tablet 20 mg PO Q OTHER DAY 01/18/24 01/18/24 History Past Med/Surg History Problem List (Updated 01/18/24 @ 21:11 by Jimena Borrego MD) Stroke-like symptoms Lumbar spondylosis Chronic gluteal pain Lumbar radiculopathy Encounter for pre-operative examination Left ankle pain Left ankle sprain Greater trochanteric bursitis of right hip Tear of gluteus medius tendon Atrophy of muscle of lower leg Hip pain, chronic Idiopathic polyneuropathy Osteoarthritis of right knee Tear of peroneal tendon of left foot Hx s/p rehab and boot x 2 years (no surgery) Left ankle instability Medical History (Updated 01/18/24 @ 21:11 by Jimena Borrego MD) Morbid obesity Osteoarthritis 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 Sleep apnea CPAP Follows with [facility] pulmonology Anxiety and depression Gout Hypertension Follows with [facility] cardio/[facility] Surgical History Hx of colonoscopy Hx of removal of cyst Right ear Hx of arthroscopy of shoulder Left + repair Family History Other Diabetes Stroke Social History Smoking Status: Former smoker Second Hand Exposure: No; Do You Dip or Chew Tobacco: Yes (1-2 cans/day; advised none DOS); Hx Alcohol Use: Yes Alcohol type: hard liquor Hx Substance Use: No Preferred Language: Colombian Communication Ability: Effective Hearing Ability: Normal Manufacturing Engineering Manager Required: No Beliefs That Will Affect Care: None marital status: Current Living Situation: Spouse and Family current occupational status: employed 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 No acute distress Psych: Appropriate mood and affect Neuro: hands tremulous, CN 2 through 12 grossly intact HEENT: NC/AT CV: RRR Resp: Breath sounds clear bilaterally, no increased effort of breathing. Abdomen: protuberant, nontender Extremities: trace edema in lower extremities bilaterally. Results & Data Results & Data Vital Signs (Past 12 Hours) Vital Signs Temp Pulse Pulse Resp BP BP Pulse Ox 01/18/24 17:00 63 21 153/81 H 96 01/18/24 15:45 97 01/18/24 15:28 74 01/18/24 15:22 96 01/18/24 15:22 36.9 C 73 20 158/80 H 96 O2 Del Method 01/18/24 17:00 01/18/24 15:45 Room Air 01/18/24 15:28 01/18/24 15:22 Room Air 01/18/24 15:22 Room Air Diagnostic Findings Chest X-Ray 01/18/24 15:24 XR chest 1V portable HISTORY: Chest pain, nonspecific COMPARISON: Chest 12/15/2023. FINDINGS: No pneumothorax. No pleural effusions. The cardiac silhouette remains enlarged. No focal lung consolidations to suggest a pneumonia. No evidence for pulmonary edema. No acute fractures identified. A few bibasilar linear densities favor subsegmental atelectasis or scarring. There are low lung volumes. IMPRESSION: No significant change compared to the prior study. No acute process. Stable cardiomegaly. ACT 112: Negative or not required by law. Electronically signed by: Patrick Swanson M.D. 01/18/2024 4:00 PM Head CTA 01/18/24 15:36 CT angio head wo/w CLINICAL HISTORY: Altered mental status. COMPARISON STUDY: Head CT and CTA of the head December 15, 2023. TECHNIQUE: Unenhanced and arterial phase imaging of the head was performed. Intravenous injection of 120 cc of Optiray 320 IV was uneventful. Sagittal and coronal reconstructions were viewed as well as maximal intensity projections on an independent 3-D workstation. Automated exposure control was utilized for the study. A dose lowering technique was utilized adhering to the principles of ALARA. FINDINGS: No acute intracranial hemorrhage, midline shift or mass effect is present. Ventricular system is stable. The basal cisterns are patent. There are nodular axial collections. Cerebellar atrophy is again noted. There are no findings to suggest acute dural sinus thrombosis or acute territorial infarct. A large right mastoid effusion with fluid within the right middle ear is unchanged. The bilateral M1, M2, A1 and A2 segments are patent. There is moderate plaque within the bilateral cavernous carotids without significant stenosis. No intracranial vessel occlusion is identified. There is persistence of the right posterior cerebral artery. There is no intracranial aneurysm. IMPRESSION: 1. No acute intracranial findings. 2. No large vessel occlusion. No intracranial aneurysm. 3. No change in a right mastoid effusion with fluid within the right middle ear. ACT 112: Negative or not required by law. Electronically signed by: Darinel Yusuf M.D. 01/18/2024 5:42 PM Neck CTA 01/18/24 15:36 CT ANGIOGRAPHY OF THE NECK WITH CONTRAST CLINICAL HISTORY: Altered mental status. COMPARISON STUDY: CTA of the neck December 15, 2023. Technique: CT angiography of the carotid and vertebral arteries was obtained using Optiray and 3D reconstruction on an independent workstation. NASCET criteria was utilized. Automated exposure control was utilized for the study. A dose lowering technique was utilized adhering to the principles of ALARA. CT DOSE: 1249.85 mGy.cm Findings: Visualized portions of the lung apices are unremarkable. There is no cervical spine fracture. There is no cervical lymphadenopathy. There is extensi ve calcified plaque within the right carotid bifurcation which results in 30% stenosis of the proximal right internal carotid artery. There is moderate plaque within the proximal left internal carotid artery without stenosis. There is moderate stenosis at the origin of the right vertebral artery, suboptimally assessed on this exam. Left vertebral artery is patent. There is no aneurysm or dissection within the neck. Tortuosity of the distal cervical bilateral internal carotid arteries is incidentally noted. IMPRESSION: 1. 30% stenosis of the proximal right internal carotid artery due to calcified atherosclerotic plaque. No stenoses within the cervical left internal carotid artery. 2. Moderate stenosis at the origin of the right vertebral artery. ACT 112: Negative or not required by law. Electronically signed by: Darinel Yusuf M.D. 01/18/2024 5:56 PM
[2024-01-18] MEDS ORDERED: LORazepam 2 MG/1 ML VIAL IV PRN (21:09)
[2024-01-18] MEDS ORDERED: PHARMACIST DISCHARGE MED REC CONSULT PRN (21:09)
[2024-01-18 22:17] LABS: Appearance Urine Clear (Clear); Bacteria Urine Automated None Seen (None Seen); Bilirubin Urine Negative (Negative); Blood Urine Negative (Negative); Cast Urine Automated 0-2 /lpf (0-2); Color Urine Yellow; Epithelial Cell Urine Auto 0-2 /hpf (0-2); Glucose Urine UA Negative (Negative); Ketones Urine Negative (Negative); Leukocyte Esterase Urine Trace (Negative); Nitrite Urine Negative (Negative); Protein Urine Negative (Negative); RBC Urine Automated 0-2 /hpf (0-2); Specific Gravity Urine 1.018 (1.000-1.030); Urobilinogen Urine Negative (Negative); WBC Urine Automated 0-5 /hpf (0-5)
[2024-01-18] MEDS: MULTI-VITAMIN INFUSION 10 ML, THIAMINE HCL 100 MG, FOLIC ACID 1 MG in SODIUM CHLORIDE 0... IV ONE (22:37)
[2024-01-18] MEDS: NICOTINE 21 MG/24 HR TDSY TD SCH (22:54)
[2024-01-18] MEDS: PANTOprazole 40 MG TAB PO STA (22:56)
[2024-01-18] MEDS: TERAZOSIN HCL 5 MG CAP PO STA (23:04)
[2024-01-18] MEDS: ZOLPIDEM TARTRATE 5 MG TAB PO PRN (23:04)
[2024-01-18] MEDS: LITHIUM CARBONATE 450 MG TABCR PO STA (23:04)
--- OUTSIDE RECORDS SUMMARY | 2024-01-18 23:39 | External Medical Summary | Summary of Care ---
Author Name Unknown Organization [facility] Address [address] [place] [address] Phone [phone] Care Team Providers Care Bottom Bleacher Name Role Phone Yasemin Newsome PA-C Primary Care Provider [phone] Encounter Details Date Type Department Care Team (Late st Contact Info) Description 01/14/2024 12:30 PM EDT Telemedicine Psychiatry, [address] [place] [address] Mao Santos MD [address] [place] [address] Bipolar 1 disorder (HCC)* Allergies Active Allergy Reactions Criticality Noted Date Comments Bupropion High 01/22/2020 Other reaction(s): SKIN IRRITATION Chlorthalidone Other (Please comment) Medium hyponatremia documented as of this encounter (statuses as of 01/14/2024) Medications Medication Sig Dispensed Refills Start Date End Date Status CPAP every night at bedtime. Active Pulse OximeterIndications:F amily history of pulmonary fibrosis,SOB (shortness of breath),Air hunger,TURNER (dyspnea on exertion),Pulmonary nodule Use as directed. Use to monitor heart rate and oxygen levels daily 1 Each 1 08/04/2022 Active Aspirin 81 MG Oral Tablet Delayed Release Take 1 Tablet by mouth in the morning. 12/04/2022 Active Metoprolol Succinate ER 25 MG Oral Tablet Extended Release 24 Hour (toPROL XL)Indications:HTN, goal below 140/90 TAKE 1 TABLET BY MOUTH IN THE MORNING 90 Tablet 3 01/26/2023 Active cloNIDine HCl 0.3 MG Oral TabletIndications:HTN , goal below 140/90 Take 1 tablet by mouth twice daily 180 Tablet 3 04/05/2023 Active Zolpidem Tartrate 10 MG Oral Tablet (Ambien)Indications:S leep apnea, obstructive TAKE 1 TABLET BY MOUTH AT BEDTIME NEEDED FOR SLEEP MUST WEAR CPAP. DO NOT TAKE WITH NARCOTICS OR ALCOHOL 30 Tablet 04/10/2023 Active Magnesium Oxide -Mg Supplement 400 (240 Mg) MG Oral Tablet (Mag-Ox)Indications:H ypomagnesemia Take 1 Tablet by mouth in the morning. 90 Tablet 3 04/17/2023 Active Terazosin HCl 5 MG Oral Capsule (Hytrin)Indications:H TN, goal below 140/90 Take 1 Capsule by mouth at bedtime. 06/20/2023 Active Isosorbide Mononitrate ER 60 MG Oral Tablet Extended Release 24 Hour (Imdur)Indications:Hy pertensive urgency,ASCVD (arteriosclerotic cardiovascular disease) TAKE 1 TABLET BY MOUTH IN THE MORNING 90 Tablet 3 07/23/2023 Active Omeprazole 20 MG Oral Capsule Delayed Release (PriLOSEC) TAKE 1 CAPSULE BY MOUTH AT BEDTIME OR FIRST THING IN THE MORNING 90 Capsule 1 08/17/2023 Active [place] Carbonate 300 MG Oral Capsule (Eskalith) Take 2 Capsules by mouth every night at bedtime. 60 Capsule 5 09/10/2023 Active Lisinopril 40 MG Oral TabletIndications:HTN , goal below 140/90 TAKE 1/2 (ONE-HALF) TABLET BY MOUTH IN THE MORNING 15 Tablet 3 09/18/2023 Active Furosemide 20 MG Oral Tablet (Lasix)Indications:Ch ronic diastolic heart failure (HCC) TAKE 1 TABLET BY MOUTH EVERY OTHER DAY 45 Tablet 3 10/24/2023 Active EQ All Day Allergy Relief 10 MG Oral Tablet (Loratadine) Take 1 tablet by mouth once daily 90 Tablet 3 11/20/2023 Active Allopurinol 300 MG Oral Tablet (Zyloprim) TAKE 2 TABLETS BY MOUTH IN THE MORNING 180 Tablet 3 11/20/2023 Active Rosuvastatin Calcium 5 MG Oral Tablet (Crestor)Indications: Dyslipidemia, goal LDL below 70 TAKE 1 TABLET BY MOUTH ON SUNDAY, SUNDAY AND SUNDAY 39 Tablet 1 11/28/2023 Active Escitalopram Oxalate 10 MG Oral Tablet (Lexapro) Take 1 Tablet by mouth in the morning. 90 Tablet 1 01/03/2024 Active Spironolactone 50 MG Oral Tablet (Aldactone)Indication s:HTN, goal below 140/90 Take 1.5 Tablets by mouth in the morning. 01/09/2024 Active documented as of this encounter (statuses as of 01/14/2024) Active Problems Problem Noted Date Diagnosed Date Dyspnea and respiratory abnormalities 11/15/2022 Abnormal nuclear stress test 07/27/2022 Coronary artery disease invo lving [place] coronary artery of [place] heart with angina pectoris 07/27/2022 Prediabetes 07/10/2022 Overview: Per Prediabetes protocol Chronic diastolic heart failure 12/22/2021 Fatty liver 12/22/2021 Idiopathic chronic gout without tophus Other instability, left ankle 12/22/2021 Gastroesophageal reflux disease without esophagi tis 12/22/2021 Bipolar disorder, currently in remission, most recent episode unspecified 12/22/2021 Lung granuloma 09/16/2021 Body mass index (BMI) of 40.0 to 44.9 in adult 0 12/11/2017 Overview: Per Obesity protocol #1 - Sleep apnea, obstructive 06/27/2011 Overview: APAP set 17 cwp 06/09/11 At home PSG -- AHI 39 Care Plus Oxygen Sleep related hypoxia 06/27/2011 Other chronic allergic conjunctivitis 08/27/2009 HTN, goal below 140/90 06/05/2001 TOBACCO USE DISORDER- ORAL 06/05/2001 Dermatitis 12/05/2000 Other specified forms of hearing loss documented as of this encounter (statuses as of 01/14/2024) Resolved Problems Problem Noted Date Diagnosed Date Resolved Date Genetic Sleep Disorder [facility] Other*[id number] 05/30/2011 12/01/2015 Acute bronchitis, complicated 08/27/2009 06/08/2017 Pneumonia due to organism 08/27/2009 Overview: ICD-10 update of inactive term ADVANCE DIRECTIVE INFORMATION 01/25/2005 06/08/2017 Overview: No, Advance Directive brochure offered , patient declined. documented as of this encounter (statuses as of 01/14/2024) Immunizations Name Administration Dates Next Due HEP A - Hepatitis A (Adult > 18 yrs) 08/02/2020, 02/02/2020 Hepatitis B, 20+ yrs 08/02/2020,03/04/2020,02/01 Seasonal Influenza, [place] t, (IIV3), with Preserv, (Fluzone) 03/11/2007 TDAP (age 10 and older)(Boostrix) 03/11/2012 TDAP, Age 7 and older, IM (Adacel) 04/21/2008(De ferred: Patient Refused) documented as of this encounter Social History Tobacco Use Types Packs/Day Years Used Date Smoking Tobacco: Never Pipe Smokeless Tobacco: Current Snuff Comments:1.5 can per day at least, sometimes more Alcohol Use Standard Drinks/Week Comments Yes 7 (1 standard drink = 0.6 oz pure alcohol) whiskey ever night or every other night PHQ-2 Answer Date Recorded PHQ Adult Total Score 0 06/30/2022 Hunger Vital Sign Answer Date Recorded Within the past 12 months, y ou worried that your food would run out before you got the money to buy more. Never true 07/01/19 Within the past 12 months, t he food you bought just didn't last and you didn't have money to get more. Never true 06/30/2022 Sex and Gender Information Value Date Recorded Sex Assigned at Male 05/12/2022 10:20 AM EST Gender Identity Male 05/12/2022 10:20 AM EST Sexual Orientation Straight 05/12/2022 10 :20 AM EST Job Start Date Occupation Industry Not on file Not on file Not on file documented as of this encounter Progress Notes * Mao Santos MD - 01/14/2024 12:30 PM EDT Patient location: HOME. I was not in a hospital or clinic location. After connecting through televideo, patient was verified with two unique identifiers. Patient (or authorized legal b2b sales representative) was then informed that this was a Telemedicine visit and being conducted confidentially over secure lines. Methods to assure confidentiality were taken. Patient acknowledged consent and understanding of privacy and security of the Telemedicine visit. The patient agreed to participate. PSYCHOTHERAPY & MEDICATION MANAGEMENT RETURN VISIT NOTE CHIEF COMPLAINT: F/u appt INTERVAL HISTORY: He states he is "good". Mood has been stable. Appetite and sleep remain good. Na has been low-- discussed recently cardiology appt. Li level overdue-- added onto blood work from this AM ROS EXAM: denies No observed or reported side effects to current medications none SUBSTANCE ABUSE:Unremarkable RELEVANT PAST PSYCHIATRIC, MEDICAL, FAMILY OR SOCIAL HX: as noted above CURRENT MEDS: Current Outpatient Medications Medication Sig Dispense Refill CPAP every night at bedtime. Pulse Oximeter Use as directed. Use to monitor heart rate and oxygen levels daily 1 Each 1 Aspirin 81 MG Oral Tablet Delayed Release Take 1 Tablet by mouth in the morning. Metoprolol Succinate ER 25 MG Oral Tablet Extended Release 24 Hour (toPROL XL) TAKE 1 TABLET BY MOUTH IN THE MORNING 90 Tablet 3 cloNIDine HCl 0.3 MG Oral Tablet Take 1 tablet by mouth twice daily 180 Tablet 3 Zolpidem Tartrate 10 MG Oral Tablet (Ambien) TAKE 1 TABLET BY MOUTH AT BEDTIME NEEDED FOR SLEEP MUST WEAR CPAP. DO NOT TAKE WITH NARCOTICS OR ALCOHOL 30 Tablet 0 Magnesium Oxide -Mg Supplement 400 (240 Mg) MG Oral Tablet (Mag-Ox) Take 1 Tablet by mouth in the morning. 90 Tablet 3 Terazosin HCl 5 MG Oral Capsule (Hytrin) Take 1 Capsule by mouth at bedtime. Isosorbide Mononitrate ER 60 MG Oral Tablet Extended Release 24 Hour (Imdur) TAKE 1 TABLET BY MOUTHIN THE MORNING 90 Tablet 3 Omeprazole 20 MG Oral Capsule Delayed Release (PriLOSEC) TAKE 1 CAPSULE BY MOUTH AT BEDTIME OR FIRST THING IN THE MORNING 90 Capsule 1 [place] Carbonate 300 MG Oral Capsule (Eskalith) Take 2 Capsules by mouth every night at bedtime. 60 Capsule 5 Lisinopril 40 MG Oral Tablet TAKE 1/2 (ONE-HALF) TABLET BY MOUTH IN THE MORNING 15 Tablet 3 Furosemide 20 MG Oral Tablet (Lasix) TAKE 1 TABLET BY MOUTH EVERY OTHER DAY 45 Tablet 3 EQ All Day Allergy Relief 10 MG Oral Tablet (Loratadine) Take 1 tablet by mouth once daily 90 Tablet 3 Allopurinol 300 MG Oral Tablet (Zyloprim) TAKE 2 TABLETS BY MOUTH IN THE MORNING 180 Tablet 3 Rosuvastatin Calcium 5 MG Oral Tablet (Crestor) TAKE 1 TABLET BY MOUTH ON SUNDAY, SUNDAY AND SUNDAY 39 Tablet 1 Escitalopram Oxalate 10 MG Oral Tablet (Lexapro) Take 1 Tablet by mouth in the morning. 90 Tablet 1 Spironolactone 50 MG Oral Tablet (Aldactone) Take 1.5 Tablets by mouth in the morning. No current facility-administered medications for this visit. LABS: reviewed per EMR MENTAL STATUS EVALUATION: Appearance: age-appropriate Muscle strength/tone and motor behavior: normal muscle strength and tone as visualized on video Gait and Station: not tested Personal Presentation: open and friendly. Behavior: cooperative Speech: normal, rate, tone and volume Mood: good Affect: type - euthymic; range - full range; lability - no Associations: intact Thought Process: goal directed Abstract Reasoning: not intact Thought Content: denies suicidal ideations, homicidal ideations, auditory hallucinations, visual hallucinations, delusions, impulsivity to act out or preoccupation with violence Orientation: alert Recent and remote memory as evidenced by recall of recent circumstances and remote life events: intact Language as evidenced by ability to repeat phrase and name object: intact Fund of knowledge as evidenced by vocabulary and current/historical events: intact Attention span/concentration as evidenced by: following conversation - intact Insight: good Judgment: good FORMULATION: Jamari Malin is a 58 year old male with presenting hx of Bipolar Disorder. Manic episode in 2018 after starting an antidepressant that lasted several months. Started [place] which stabilized him. Has been stable since that time. No inpatient psych. No SA. No D&A. Saw Dr. Ray in past. No therapy now. 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 . 2 children. Has been feeling very stable including after lithium decrease in 2020 (900mg total daily to 750mg total daily then to 600mg daily). Cardiac cath June 2022-- Proximal RCA with 100% AIR SAMPLING AND MONITORING with left to right collaterals DIAGNOSIS: Bipolar I d/o, in remission Unspecified anxiety d/o PLAN : -- cont [place] 600mg nightly; level ordered; other labs UTD -- cont Lexapro 10mg daily -- RTC in 6 months; aware he will be transferred to new provider documented in this encounter Plan of Treatment Upcoming Encounters Date Type Department Care Team (Latest Contact Info) Description 03/18/2024 11:00 AM EST Office Visit [facility] [address] [place] [facility] [place] [address] Yasemin Newsome PA-C [address] [place] [facility] [place] [address] 03/20/2024 2:00 PM EST Office Visit [facility] [address] [place] [phone] Francesca Ford CRNP [address] [place] [address] 04/08/2024 8:46 AM EST Hospital Encounter [facility], Operating Room [facility] [address] [place] [phone] Hiram Latham MD [address] [address] 04/08/2024 8:46 AM EST - 04/08/2024 9:24 AM EST Surgery OR [facility], Operating Room [facility] [address] [place] [phone] Hiram Latham MD [address] [id number] RIGHT EXTRACAPSULAR CATARACT REMOVAL WITH INTRAOCULAR LENS 04/14/2024 8:00 AM EST Office Visit Orthopaedics [facility] [address] [place] [address] Mark García DO [address] [place] [address] 04/15/2024 10:17 AM EST Hospital Encounter OR [facility], Operating Room [facility] [address] [place] [phone] Hiram Latham MD [address] [place] [address] 04/15/2024 10:17 AM EST - 04/15/2024 10:55 AM EST Surgery OR [facility], Operating Room [facility] [address] [place] [address] Hiram Latham MD [address] [place] [address] LEFT EXTRACAPSULAR CATARACT REMOVAL WITH INTRAOCULAR LENS 04/21/2024 8:00 AM EST Office Visit Orthopaedics [facility] [address] [place] [address] Mark García, DO [address] [place] [address] 04/28/2024 8:00 AM EST Office Visit Orthopaedics [facility] [address] [place] [address] Mark García, DO [address] [place] [address] 07/18/2024 11:00 AM EDT Office Visit Cardiology, [facility] [address] [place] [address] Darian Welch PAMiguelito [address] [place] [address] 09/01/2024 7:40 AM EDT Office Visit Nephrology, [facility] [address] [place], [place] [address] Radha Sawyer MD [address] [place], [place] [address] 09/04/2024 1:00 PM EDT Office Visit [address] [place] [phone] Yasemin Newsome PA-C [address] [place] [facility] [place] [address] Pending Results Name Type Priority Associated Diagnoses Date /Time LITHIUM LEVEL Lab Routine Bipolar 1 disorder (HCC) 01/14/2024 10:04 AM EDT Scheduled Orders Name Type Priority Associated Diagnoses Orde r Schedule LITHIUM LEVEL Lab Routine Bipolar 1 disorder (HCC) Expected: 01/14/2024, Expires: 01/13/2025 Scheduled Procedures Name Priority Associated Diagnoses Date/Ti me EXTRACAPSULAR CATARACT REMOVAL WITH INTRAOCULAR LENS Combined forms of age-related cataract of right eye 04/08/2024 8:46 AM EST EXTRACAPSULAR CATARACT REMOVAL WITH INTRAOCULAR LENS Combined forms of age-related cataract of left eye 04/15/2024 10:17 AM EST COLONOSCOPY FLEXIBLE PROXIMAL DIAGNOSTIC Recall Colon cancer screening Health Maintenance Due Date Last Done Comments HIV Screening 1978 Cologuard 2008 Fecal Occult Blood Test 2008 Sigmoidoscopy 2008 Zoster Vaccines (1 of 2) 2013 DTap/Tdap Vaccines (2 - Td or Tdap) 03/11/2022 03/11/2012 COVID-19 Vaccine ( season) 2023 Influenza Vaccine (FLU shot) (#1) 2023 03/11/2007, 02/25/2002, 05/29/2000, Additional history exists HbA1c 12/16/2024 12/17/2023, 03/0 06/2022, 12/23/2021, Additional history exists GFR 01/13/2025 01/14/2024, 09/0 10/2023, 12/21/2023, Additional history exists Colonoscopy 04/06/2025 04/06/2015, 04/06/2015 Colorectal Cancer Screening 04/06/2025 Albumin/Creatinine Ratio 09/09/2026 024, 08/18/2022, 11/24/2021 Hepatitis C Screening Completed 02/09/2020, 020 Hepatitis B Vaccine Completed 08/02/2020, 03/04/2020, 02/02/2020 HPV (Gardasil) Vaccine Aged Out No lo nger eligible based on patient's age to complete this topic MENINGOCOCCAL (MENACTRA/MENVEO) Aged Out No longer eligible based on patient's age to complete this topic Pneumococcal Vaccine: Pediatrics (0 to 5 Years) and At-Risk Patients (6 to 64 Years) Aged Out No longer eligible based on patient's age to complete this topic documented as of this encounter Medical Devices Not on filedocumented as of this encounter Visit Diagnoses Diagnosis Bipolar 1 disorder (HCC)- Primary Bipolar I disorder, most recent episode (or current) unspecified Combined forms of age-related cataract of right eye Other and combined forms of senile cataract Combined forms of age-related cataract of left eye Other and combined forms of senile cataract documented in this encounter Care Teams Bottom Bleacher Relationship Specialty Start Date End Date Yasemin Newsome PA-C [address] [place] [address] PCP - General Physician Measurement Psychologist 06/11/20 documented as of this encounter
--- OUTSIDE RECORDS SUMMARY | 2024-01-18 23:39 | External Medical Summary | Summary of Care ---
Author Name Unknown Organization [facility] Address [address] [place] [address] Phone [phone] Care Team Providers Care Time Clock Inspector Name Role Phone Yasemin Newsome PA-C Primary Care Provider [phone] Reason for Visit * Reason Onset Date Comments Medication Refill 01/03/2024 Encounter Details Date Type Department Care Team (Late st Contact Info) Description 01/03/2024 Refill Psychiatry, [address] [place] [id number] Angel Santos MD [address] [place] [address] Allergies Active Allergy Reactions Criticality Noted Date Comments Bupropion High 01/22/2020 Other reaction(s): SKIN IRRITATION Chlorthalidone Other (Please comment) Medium hyponatremia documented as of this encounter (statuses as of 01/03/2024) Medications Medication Sig Dispensed Refills Start Date End Date Status CPAP every night at bedtime. Active Pulse OximeterIndications: Family history of pulmonary fibrosis,SOB (shortness of breath),Air [...] 01/26/2023 Active cloNIDine HCl 0.3 MG Oral TabletIndications:HT N, goal below 140/90 Take 1 tablet by mouth twice daily 180 Tablet 3 04/05/2023 Active Zolpidem Tartrate 10 MG Oral Tablet (Ambien)Indications: Sleep apnea, obstructive TAKE 1 TABLET BY MOUTH AT BEDTIME NEEDED FOR SLEEP MUST WEAR CPAP. DO NOT TAKE WITH NARCOTICS OR ALCOHOL 30 Tablet 04/10/2023 Active Magnesium Oxide -Mg Supplement 400 (240 Mg) MG Oral Tablet (Mag-Ox)Indications: Hypomagnesemia Take 1 Tablet by mouth in the morning. 90 Tablet 3 04/17/2023 Active Terazosin HCl 5 MG Oral Capsule (Hytrin)Indications: HTN, goal below 140/90 Take 1 Capsule by mouth at bedtime. 06/20/2023 Active Isosorbide Mononitrate ER 60 MG Oral Tablet Extended Release 24 Hour (Imdur)Indications:H ypertensive urgency,ASCVD (arteriosclerotic cardiovascular disease) TAKE 1 TABLET BY MOUTH IN THE MORNING 90 Tablet 3 07/23/2023 Active Spironolactone 50 MG Oral Tablet (Aldactone)Indicatio ns:HTN, goal below 140/90 Take 2 Tablets by mouth in the morning. In the morning.. 180 Tablet 3 07/24/2023 Active Omeprazole 20 MG Oral Capsule Delayed Release (PriLOSEC) TAKE 1 CAPSULE BY MOUTH AT BEDTIME OR FIRST THING IN THE MORNING 90 Capsule 1 08/17/2023 Active [place] Carbonate 300 MG Oral Capsule (Eskalith) Take 2 Capsules by mouth every night at bedtime. 60 Capsule 5 09/10/2023 Active Lisinopril 40 MG Oral TabletIndications:HT N, goal below 140/90 TAKE 1/2 (ONE-HALF) TABLET BY MOUTH IN THE MORNING 15 Tablet 3 09/18/2023 Active Furosemide 20 MG Oral Tablet (Lasix)Indications:C hronic diastolic heart failure (HCC) TAKE 1 TABLET BY MOUTH EVERY OTHER DAY 45 Tablet 10/24/2023 Active EQ All Day Allergy Relief 10 MG Oral Tablet (Loratadine) Take 1 tablet by mouth once daily 90 Tablet 3 11/20/2023 Active Allopurinol 300 MG Oral Tablet (Zyloprim) TAKE 2 TABLETS BY MOUTH IN THE MORNING 180 Tablet 3 11/20/2023 Active Rosuvastatin Calcium 5 MG Oral Tablet (Crestor)Indications :Dyslipidemia, goal LDL below 70 TAKE 1 TABLET BY MOUTH ON SUNDAY, SUNDAY AND SUNDAY 39 Tablet 1 11/28/2023 Active Escitalopram Oxalate 10 MG Oral Tablet (Lexapro) Take 1 Tablet by mouth in the morning. 90 Tablet 1 01/03/2024 Active Escitalopram Oxalate 10 MG Oral Tablet (Lexapro) Take 1 Tablet by mouth in the morning. 90 Tablet 1 12/12/2022 Discontinue d(Refill) documented as of this encounter (statuses as of 01/03/2024) Active Problems Problem Noted Date Diagnosed Date Dyspnea and respiratory abnormalities 11/15/2022 Abnormal nuclear stress test 07/27/2022 Coronary artery disease invo lving [place] coronary artery of [place] heart with angina pectoris 07/27/2022 Prediabetes 07/10/2022 [...] as of this encounter (statuses as of 01/03/2024) Resolved Problems Problem Noted Date Diagnosed Date Resolved Date Genetic Sleep Disorder Resea [facility] Other*[id number] 05/30/2011 12/01/2015 Acute bronchitis, complicated 08/27/2009 06/08/2017 Pneumonia due to organism 08/27/2009 Overview: ICD-10 update of inactive term ADVANCE DIRECTIVE INFORMATION 01/25/2005 06/08/2017 Overview: No, Advance Directive brochure offered , patient declined. documented as of this encounter (statuses as of 01/03/2024) Immunizations Name Administration Dates Next Due HEP [...] money to buy more. Never true 07/01/19 23 Within the past 12 months, t he [...] on file documented as of this encounter Miscellaneous Notes * Telephone Encounter - Angel Santos MD - 01/03/2024 10:12 AM EDT Signed Prescriptions: Disp Refills Escitalopram Oxalate 10 MG Oral Tablet (Le*90 Tab*1 Sig: Take 1 Tablet by mouth in the morning. Authorizing Provider: ANGEL SANTOS * Telephone Encounter - Sharon Henderson OSA - 01/03/2024 9:21 AM EDT Patient calling for refill on Lexapro and [place] Carbonate. Medication was last filled on 12/13/2023 with 1 refills. (Per patient last month he had to get an 5 day emergency refill for the Lexapro. The 12/12 script was use for that refill. He will need a new script.) Patient last seen on 01/22/2023 with return appointment scheduled for 01/14/2024. Patient had 0cancelled appointments and 0 NO SHOW appointments. documented in this encounter Plan of Treatment Upcoming Encounters Date Type Department Care Team (Latest Contact Info) Description 01/14/2024 12:30 PM EDT [address] [address] Angel Santos MD [address] [place] [address] 03/18/2024 11:00 AM EST Office Visit [facility] [address] [place] [phone] Yasemin Newsome PA-C [address] [place] [address] 03/20/2024 2:00 PM EST Office Visit Sleep Disorders Ctr [facility] [address] [facility] [place] [address] Francesca Ford CRNP [address] [place] [address] 03/26/2024 8:30 AM EST Office Visit Cardiology, [facility] [address] [place] [address] Darian Welch PA-C [address] [place] [address] 04/08/2024 8:46 AM EST Hospital Encounter OR [facility], Operating Room [facility] [address] [place] [address] Hiram Latham MD [address] [address] 04/08/2024 8:46 AM EST - 04/08/2024 9:24 AM EST Surgery OR [facility], Operating Room [facility] [address] [place] [address] Hiram Latham MD [address] [address] RIGHT EXTRACAPSULAR CATARACT REMOVAL WITH INTRAOCULAR LENS 04/14/2024 8:00 AM EST Office Visit Orthopaedics [facility] [address] [place] [address] Mark García DO [address] [place] [address] 04/15/2024 10:17 AM EST Hospital Encounter OR [facility], Operating Room [facility] [address] [place] [address] Hiram Latham MD [address] [address] 04/15/2024 10:17 AM EST - 04/15/2024 10:55 AM EST Surgery OR [facility], Operating Room [facility] [address] [place], [place] [address] Hiram Latham MD [address] [place] [address] [place] [address] LEFT EXTRACAPSULAR CATARACT REMOVAL WITH INTRAOCULAR LENS 04/21/2024 8:00 AM EST Office Visit [facility] [address] [place] [address] Mark García DO [address] [place], [place] [address] 04/28/2024 8:00 AM EST Office Visit [facility] [address] [place] [address] Mark García DO [address] [place] [address] 09/01/2024 7:40 AM EDT Office Visit Nephrology, [facility] [address] [place] [address] Radha Sawyer MD [address] [place] [address] 09/04/2024 1:00 PM EDT Office Visit [facility] [address] [place] [phone] Yasemin Newsome PA-C [address], [place] [phone] Scheduled Procedures Name Priority Associated Diagnoses Date/Ti [...] Td or Tdap) 03/11/2022 03/11/2012 COVID-19 Vaccine (1 - season) 2023 Influenza Vaccine (FLU shot) (#1) 2023 03/11/2007, 02/25/2002, 05/29/2000, Additional history exists HbA1c 12/16/2024 12/17/2023, 03/0 06/2022, 12/23/2021, Additional history exists GFR 12/20/2024 12/21/2023, 11/29, 12/17/2023, Additional history exists Colonoscopy 04/06/2025 04/06/2015, 04/06/2015 [...] Not on filedocumented as of this encounter Care Teams Time Clock Inspector Relationship Specialty Start Date End Date Yasemin Newsome PA-C [address] [facility] [place] [address] PCP - General Physician Automotive Engineering Technician 06/11/20 documented as of this encounter
--- OUTSIDE RECORDS SUMMARY | 2024-01-18 23:39 | External Medical Summary ---
Author Name Unknown Address Unknown Organization [facility] [place] [address] [place] [id number] Laboratory Report Ordering Provider Test Date Status WARREN ADAMS 01/05/2024 10:34:46 Final Observation Date Value Abnormality Reference (Units ) Status BUN 01/05/2024 10:34:46 15 6-20 (mg/dL) Final Creatinine 01/05/2024 10:34:46 1.1 0.6-1.2 (mg/dL) Final Glomerular filtration rate/1.73 sq M.predicted [Volume Rate/Area] in Serum, Plasma or Blood by Creatinine-based formula (CKD-EPI) 01/05/2024 10:34:46 79 >=60 (mL/min) Final eGFR is calculated based on the CKD-EPI 2020 equation. Sodium 01/05/2024 10:34:46 133 Below low normal 135 -146 (mmol/L) Final Potassium 01/05/2024 10:34:46 5.2 Above high normal 3. 5-5.1 (mmol/L) Final Cl 01/05/2024 10:34:46 98 98-107 (mm ol/L) Final CO2 01/05/2024 10:34:46 25 22-32 (mmo l/L) Final Anion gap 01/05/2024 10:34:46 10 7-15 (mmol /L) Final Glucose 01/05/2024 10:34:46 142 Above high normal 70 -120 (mg/dL) Final Calcium 01/05/2024 10:34:46 10.1 8.4-10.2 ( mg/dL) Final Performing Location [facility] [place] [address] [place] [id number]
--- OUTSIDE RECORDS SUMMARY | 2024-01-18 23:39 | External Medical Summary ---
Author Name Unknown Address Unknown Organization [facility] [address] [place] [id number] Laboratory Report Ordering Provider Test Date Status WARREN ADAMS 01/14/2024 10:04:09 Final Observation Date Value Abnormality Reference (Units ) Status BUN 01/14/2024 10:04:09 26 Above high normal 6-20 (mg/dL) Final Creatinine 01/14/2024 10:04:09 1.2 0.6-1.2 (mg/dL) Final Glomerular filtration rate/1.73 sq M.predicted [Volume Rate/Area] in Serum, Plasma or Blood by Creatinine-based formula (CKD-EPI) 01/14/2024 10:04:09 68 >=60 (mL/min) Final eGFR is calculated based on the CKD-EPI 2020 equation. Sodium 01/14/2024 10:04:09 132 Below low normal 135 -146 (mmol/L) Final Potassium 01/14/2024 10:04:09 5.1 3.5-5.1 (m mol/L) Final Cl 01/14/2024 10:04:09 95 Below low normal 98- 107 (mmol/L) Final CO2 01/14/2024 10:04:09 23 22-32 (mmo l/L) Final Anion gap 01/14/2024 10:04:09 14 7-15 (mmol /L) Final Glucose 01/14/2024 10:04:09 142 Above high normal 70 -120 (mg/dL) Final Calcium 01/14/2024 10:04:09 10.4 Above high normal 8. 4-10.2 (mg/dL) Final Performing Location [facility] [address] [place] [id number]
--- OUTSIDE RECORDS SUMMARY | 2024-01-18 23:39 | External Medical Summary | Summary of Care ---
Author Name Unknown Organization [facility] Address [address] [facility] [place] [address] Phone [phone] Care Team Providers Care Business Solution Analyst Name Role Phone Yasemin Newsome PA-C Primary Care Provider [phone] Reason for Visit * Reason Comments Outpatient Testing Encounter Details Date Type Department Care Team (Late st Contact Info) Description 01/05/2024 10:30 AM EDT Laboratory Laboratory, [facility] [place] [address] [facility] [address] [facility] [place] [address] HTN, goal below 140/90; Hyponatremia; Hypomagnesemia; Genetic testing Allergies Active Allergy Reactions Criticality Noted Date Comments Bupropion High 01/22/2020 Other reaction(s): SKIN IRRITATION Chlorthalidone Other (Please comment) Medium 3 hyponatremia documented as of this encounter (statuses as of 01/05/2024) Medications Medication Sig Dispensed Refills Start Date [...] 07/23/2023 Active Spironolactone 50 MG Oral Tablet (Aldactone)Indication s:HTN, goal below 140/90 Take 2 Tablets by mouth in the morning. In the morning.. 180 Tablet 3 07/24/2023 Active Omeprazole 20 MG Oral Capsule Delayed Release (PriLOSEC) TAKE 1 CAPSULE BY MOUTH AT BEDTIME OR FIRST THING IN THE MORNING 90 Capsule 1 08/17/2023 Active [place] Carbonate 300 MG Oral Capsule (Eskalith) Take [...] the morning. 90 Tablet 1 01/03/2024 Active documented as of this encounter (statuses as of 01/05/2024) Active Problems Problem Noted Date Diagnosed Date Dyspnea and respiratory abnormalities 11/15/2022 Abnormal nuclear stress test 07/27/2022 Coronary artery disease invo lving [place] coronary artery of [place] heart with angina pectoris 07/27/2022 Prediabetes 07/10/2022 [...] as of this encounter (statuses as of 01/05/2024) Resolved Problems Problem Noted Date Diagnosed Date Resolved Date Genetic Sleep Disorder Resea [facility] Other*[id number] 05/30/2011 12/01/2015 Acute bronchitis, complicated 08/27/2009 06/08/2017 Pneumonia due to organism 08/27/2009 Overview: ICD-10 update of inactive term ADVANCE DIRECTIVE INFORMATION 01/25/2005 06/08/2017 Overview: No, Advance Directive brochure offered , patient declined. documented as of this encounter (statuses as of 01/05/2024) Immunizations Name Administration Dates Next Due HEP A - Hepatitis A (Adult > 18 yrs) 08/02/2020, 02/02/2020 Hepatitis B, 20+ yrs 08/02/2020,03/04/2020,02/01 Seasonal Influenza, Triv[place] t, (IIV3), with Preserv, (Fluzone) 03/11/2007 TDAP (age 10 and older)(Boostrix) 03/11/2012 TDAP, Age 7 and older, IM (Adacel) 04/21/2008(De fadyd: Patient Refused) documented as of this encounter [...] on file documented as of this encounter Plan of Treatment Upcoming Encounters Date Type Department Care Team (Latest Contact Info) Description 01/14/2024 12:30 PM EDT Telemedicine Psychiatry, [address] [address] Mao Santos MD [address] [place] [address] 03/18/2024 11:00 AM EST Office Visit [facility] [place] [address] [facility], [place] [address] Yasemin Newsome PA-C [address] [facility], [place] [address] 03/20/2024 2:00 PM EST Office Visit Sleep Disorders Ctr [facility] [address] [place] [address] Francesca Ford CRNP [address] [place] [address] 03/26/2024 8:30 AM EST Office Visit Cardiology, [facility] [address] [place] [address] Darian Welch PA-C [address] [place] [address] 04/08/2024 8:46 AM EST Hospital Encounter OR [facility], Operating Room [facility] [address] [place] [address] Hiram Latham MD [address] [place] [address] 04/08/2024 8:46 AM EST - 04/08/2024 9:24 AM EST Surgery OR [facility], Operating Room [facility] [address] [place] [address] Hiram Latham MD [address] [place] [address], [place] [address] RIGHT EXTRACAPSULAR CATARACT REMOVAL WITH INTRAOCULAR LENS 04/14/2024 8:00 AM EST Office Visit Orthopaedics [facility] [address] [place] [address] Mark García, DO [address] [place] [address] 04/15/2024 10:17 AM EST Hospital Encounter OR [facility], Operating Room [facility] [address] [place] [address] Hiram Latham MD [address] [address] 04/15/2024 10:17 AM EST - 04/15/2024 10:55 AM EST Surgery OR [facility], Operating Room [facility] [address] [place] [address] Hiram Latham MD [address] [address] LEFT EXTRACAPSULAR CATARACT REMOVAL WITH INTRAOCULAR LENS 04/21/2024 8:00 AM EST Office Visit Orthopaedics [facility] [address] [place] [address] Mark García, DO [address] [place] [address] 04/28/2024 8:00 AM EST Office Visit Orthopaedics [facility] [address] [place] [address] Mark García, DO [address] [place] [address] 09/01/2024 7:40 AM EDT Office Visit Nephrology, [facility] [address] [place], [place] [address] Radha Sawyer MD [address] [place] [address] 09/04/2024 1:00 PM EDT Office Visit [facility] [address] [place] [facility] [place] [address] Yasemin Newsome PA-C [address] [facility] [place] [id number] Pending Results Name Type Priority Associated Diagnoses Date /Time BASIC METABOLIC PANEL Lab Routine HTN, goal below 140/90 Hyponatremia Hypomagnesemia 01/05/2024 10:34 AM EDT MAGNESIUM Lab Routine Hypomagnesemia 01/05/2024 10:34 AM EDT EXOMENEXT FAMILY MEMBER,MARNI Lab Routine Genetic testing 01/05/2024 10:34 AM EDT Scheduled Procedures Name Priority Associated Diagnoses Date/Ti [...] as of this encounter Visit Diagnoses Diagnosis HTN, goal below 140/90 Unspecified essential hypertension Hyponatremia Hyposmolality and/or hyponatremia Hypomagnesemia Disorders of magnesium metabolism Genetic testing Other investigation and testing for procreative management Combined forms of age-related cataract of right eye Other and combined forms of senile cataract Combined forms of age-related cataract of left eye Other and combined forms of senile cataract documented in this encounter Care Teams Business Solution Analyst Relationship Specialty Start Date End Date Yasemin Newsome PA-C [address] [facility] [place] [address] PCP - General Physician Dehydrator Operator 06/11/20 documented as of this encounter
--- OUTSIDE RECORDS SUMMARY | 2024-01-18 23:39 | External Medical Summary | Summary of Care ---
Author Name Unknown Organization [facility] Address [address] [place] [address] Phone [phone] Care Team Providers Care Supervisor Dock Name Role Phone Yasemin Newsome PA-C Primary Care Provider [phone] Reason for Visit * Reason Comments eRx-Medication Refill Encounter Details Date Type Department Care Team (Late st Contact Info) Description [facility] [address] [place], [place] [phone] Eliu Corbett MD [facility] [phone] HTN, goal below 140/90 Allergies Active Allergy Reactions Criticality Noted Date Comments Bupropion High 01/22/2020 Other reaction(s): SKIN IRRITATION Chlorthalidone Other (Please comment) Medium hyponatremia documented as of this encounter (statuses as of 01/14/2024) Medications Medication Sig Dispensed Refills Start Date End Date Status CPAP every night at bedtime. Active Pulse OximeterIndications :Family history of pulmonary fibrosis,SOB (shortness of breath),Air [...] 01/26/2023 Active cloNIDine HCl 0.3 MG Oral TabletIndications:H TN, goal below 140/90 Take 1 tablet by mouth twice daily 180 Tablet 3 04/05/2023 Active Zolpidem Tartrate 10 MG Oral Tablet (Ambien)Indications :Sleep apnea, obstructive TAKE 1 TABLET BY MOUTH AT BEDTIME NEEDED FOR SLEEP MUST WEAR CPAP. DO NOT TAKE WITH NARCOTICS OR ALCOHOL 30 Tablet 04/10/2023 Active Magnesium Oxide -Mg Supplement 400 (240 Mg) MG Oral Tablet (Mag-Ox)Indications :Hypomagnesemia Take 1 Tablet by mouth in the morning. 90 Tablet 3 04/17/2023 Active Terazosin HCl 5 MG Oral Capsule (Hytrin)Indications :HTN, goal below 140/90 Take 1 Capsule by mouth at bedtime. 06/20/2023 Active Isosorbide Mononitrate ER 60 MG Oral Tablet Extended Release 24 Hour (Imdur)Indications: Hypertensive urgency,ASCVD (arteriosclerotic cardiovascular disease) TAKE 1 TABLET BY MOUTH IN THE MORNING 90 Tablet 3 07/23/2023 Active Omeprazole 20 MG Oral Capsule Delayed Release (PriLOSEC) TAKE 1 CAPSULE BY MOUTH AT BEDTIME OR FIRST THING IN THE MORNING 90 Capsule 1 08/17/2023 Active [place] Carbonate 300 MG Oral Capsule (Eskalith) Take 2 Capsules by mouth every night at bedtime. 60 Capsule 5 09/10/2023 Active Furosemide 20 MG Oral Tablet (Lasix)Indications: Chronic diastolic heart failure (HCC) TAKE 1 TABLET [...] Active Rosuvastatin Calcium 5 MG Oral Tablet (Crestor)Indication s:Dyslipidemia, goal LDL below 70 TAKE 1 TABLET BY MOUTH ON SUNDAY, SUNDAY AND SUNDAY 39 Tablet 1 11/28/2023 Active Escitalopram Oxalate 10 MG Oral Tablet (Lexapro) Take 1 Tablet by mouth in the morning. 90 Tablet 1 01/03/2024 Active Spironolactone 50 MG Oral Tablet (Aldactone)Indicati ons:HTN, goal below 140/90 Take 1.5 Tablets by mouth in the morning. 01/09/2024 Active Lisinopril 40 MG Oral TabletIndications:H TN, goal below 140/90 TAKE 1/2 (ONE-HALF) TABLET BY MOUTH ONCE DAILY IN THE MORNING 15 Tablet 01/14/2024 Active Lisinopril 40 MG Oral TabletIndications:H TN, goal below 140/90 TAKE 1/2 (ONE-HALF) TABLET BY MOUTH IN THE MORNING 15 Tablet 3 09/18/2023 01/14/20 24 Discontinued documented as of this encounter (statuses as of 01/14/2024) Active Problems Problem Noted Date Diagnosed Date Dyspnea and respiratory abnormalities 11/15/2022 Abnormal nuclear stress test 07/27/2022 Coronary artery disease invo lving [place] coronary artery of [place] heart with angina pectoris 07/27/2022 Prediabetes 07/10/2022 [...] Date Resolved Date Genetic Sleep Disorder Resea [facility] Other*[id number] 05/30/2011 12/01/2015 Acute bronchitis, complicated 08/27/2009 06/08/2017 [...] encounter Miscellaneous Notes * Telephone Encounter - Eliu Corbett MD - 01/14/2024 4:23 PM EDTSigned Prescriptions: Disp Refills Lisinopril 40 MG Oral Tablet 15 Tab*0 Sig: TAKE 1/2 (ONE-HALF) TABLET BY MOUTH ONCE DAILY IN THE MORNING Authorizing Provider: ELIU CORBETT * Telephone Encounter - Emma Lewis Headstrong - 01/14/2024 11:07 AM EDT Pending Prescriptions: Disp Refills Lisinopril 40 MG Oral Tablet 15 Tab*0 Sig: TAKE 1/2 (ONE-HALF)TABLET BY MOUTH ONCE DAILY IN THE MORNING documented in this encounter Plan of Treatment Upcoming Encounters Date Type Department Care Team (Latest Contact Info) Description 03/18/2024 11:00 AM EST Office Visit [facility] [address] [place] [phone] Yasemin Newsome PA-C [address] [place] [address] 03/20/2024 2:00 PM EST Office Visit [facility]tr [facility] [address] [place] [address] Francesca Ford CRNP [address] [place] [id number] 04/08/2024 8:46 AM EST Hospital Encounter OR [facility], Operating Room [facility] [address] [place] [address] Hiram Latham MD [address] [place] [address] 04/08/2024 8:46 AM EST - 04/08/2024 9:24 AM EST Surgery OR [facility], Operating Room [facility] [address] [place] [address] iHram Latham MD [address] [place] [address] RIGHT EXTRACAPSULAR CATARACT REMOVAL WITH INTRAOCULAR LENS 04/14/2024 8:00 AM EST Office Visit [facility] [address] [place] [address] Mark García, DO [address] [place] [address] 04/15/2024 10:17 AM EST Hospital Encounter OR [facility], Operating Room [facility] [address] [place] [address] Hiram Latham MD [address] [place] [address] 04/15/2024 10:17 AM EST - 04/15/2024 10:55 AM EST Surgery OR [facility], Operating Room [facility] [address] [place] [address] Hiram Latham MD [address] [place] [address] LEFT EXTRACAPSULAR CATARACT REMOVAL WITH INTRAOCULAR LENS 04/21/2024 8:00 AM EST Office Visit [facility] [address] [place] [address] Mark García, DO [address] [place] [address] 04/28/2024 8:00 AM EST Office Visit Orthopaedics [facility] [address] [place] [address] Mark García DO [address] [place] [address] 07/18/2024 11:00 AM EDT Office Visit Cardiology, [facility] [address] [place] [address] Darian Welch PA-C [address] [place] [address] 09/01/2024 7:40 AM EDT Office Visit Nephrology, [facility] [address] [facility] [place] [address] Eliu Corbett MD [address] [facility] [place] [address] 09/04/2024 1:00 PM EDT Office Visit [facility] [address] [place] [phone] Yasemin Newsome PA-C [address] [place] [address] Scheduled Procedures Name Priority Associated Diagnoses Date/Ti [...] HTN, goal below 140/90 Unspecified essential hypertension Combined forms of age-related cataract of right eye Other and combined forms of senile cataract Combined forms of age-related cataract of left eye Other and combined forms of senile cataract documented in this encounter Care Teams Supervisor Dock Relationship Specialty Start Date End Date Yasemin Newsome PA-C [address] [facility] [place] [address] PCP - General Physician Circular Head Saw Operator 06/11/20 documented as of this encounter
--- OUTSIDE RECORDS SUMMARY | 2024-01-18 23:39 | External Medical Summary | Summary of Care ---
Author Name Unknown Organization [facility] Address [address] [facility] [place] [address] Phone [phone] Care Team Providers Care Table Hand Name Role Phone Yasemin Newsome PA-C Primary Care Provider [phone] Encounter Details Date Type Department Care Team (Late st Contact Info) Description 01/11/2024 Orders Only PATIENT PORTAL DO NOT DELETE THIS DEPT USED BY [place] [id number] Allergies Active Allergy Reactions Criticality Noted Date Comments Bupropion High 01/22/2020 Other reaction(s): SKIN IRRITATION Chlorthalidone Other (Please comment) Medium 3 hyponatremia documented as of this encounter (statuses as of 01/11/2024) Medications Medication Sig Dispensed Refills Start Date [...] THE MORNING 90 Capsule 1 08/17/2023 Active Fossil Carbonate 300 MG Oral Capsule (Eskalith) Take [...] as of this encounter (statuses as of 01/11/2024) Active Problems Problem Noted Date Diagnosed Date Dyspnea and respiratory abnormalities 11/15/2022 Abnormal nuclear stress test 07/27/2022 Coronary artery disease invo lving [place] coronary artery of [place] heart with angina pectoris 07/27/2022 Prediabetes 07/10/2022 [...] as of this encounter (statuses as of 01/11/2024) Resolved Problems Problem Noted Date Diagnosed Date Resolved Date Genetic Sleep Disorder Resea [facility] Other*[id number] 05/30/2011 12/01/2015 Acute bronchitis, complicated 08/27/2009 06/08/2017 Pneumonia due to organism 08/27/2009 Overview: ICD-10 update of inactive term ADVANCE DIRECTIVE INFORMATION 01/25/2005 06/08/2017 Overview: No, Advance Directive brochure offered , patient declined. documented as of this encounter (statuses as of 01/11/2024) Immunizations Name Administration Dates Next Due HEP [...] Description 01/14/2024 12:30 PM EDT Telemedicine Psychiatry, [address], [place] [address] Mao Santos [facility] [address] [facility] [address] 03/18/2024 11:00 AM EST Office Visit [facility] [address] [place] [phone] Yasemin Newsome PA-C [address], [place] [phone] 03/20/2024 2:00 PM EST Office Visit Sleep Disorders Ctr [facility] [address] [place] [phone] Francesca Ford CRNP [address] [place] [address] 04/08/2024 8:46 AM EST Hospital Encounter OR [facility], Operating Room [facility] [address] [place] [phone] Hiram Latham MD [address] [place] [address] 04/08/2024 8:46 AM EST - 04/08/2024 9:24 AM EST Surgery OR [facility], Operating Room [facility] [address] [place] [phone] Hiram Latham MD [address] [place] [address] RIGHT EXTRACAPSULAR CATARACT REMOVAL WITH INTRAOCULAR LENS 04/14/2024 8:00 AM EST Office Visit Orthopaedics [facility] [address] [place] [address] Mark García DO [address] [place] [address] 04/15/2024 10:17 AM EST Hospital Encounter OR [facility], Operating Room [facility] [address] [place] [phone] Hiram Latham MD [address] [place] [address] 04/15/2024 10:17 AM EST - 04/15/2024 10:55 AM EST Surgery OR [facility], Operating Room [facility] [address] [place] [phone] Hiram Latham MD [facility] [address], [place] [address] LEFT EXTRACAPSULAR CATARACT REMOVAL WITH INTRAOCULAR LENS 04/21/2024 8:00 AM EST Office Visit Orthopaedics [facility] [address] [place] [address] Mark García, DO [address] [place] [address] 04/28/2024 8:00 AM EST Office Visit Orthopaedics [facility] [address] [place] [address] Mark García, DO [address] [place] [address] 07/18/2024 11:00 AM EDT Office Visit Cardiology, [facility] [address] [place] [address] Darian Welch PA-C [address] [place] [address] 09/01/2024 7:40 AM EDT Office Visit Nephrology, Merissa Dobbins [address] [facility] [place], [place] [address] Radha Sawyer MD [address] [place], [place] [address] 09/04/2024 1:00 PM EDT Office Visit [facility] [address] [place] [phone] Yasemin Newsome PAEstellaC [address] [place] [address] Scheduled Procedures Name Priority Associated Diagnoses Date/Ti [...] 03/0 06/2022, 12/23/2021, Additional history exists GFR 01/04/2025 01/05/2024, 2 06/2023, 12/19/2023, Additional history exists Colonoscopy 04/06/2025 04/06/2015, 04/06/2015 [...] filedocumented as of this encounter Care Teams Table Hand Relationship Specialty Start Date End Date Yasemin Newsome PA-C [address] [place] [address] PCP - General Physician Metal Weather Stripper 06/11/20 documented as of this encounter
--- OUTSIDE RECORDS SUMMARY | 2024-01-18 23:39 | External Medical Summary ---
Author Name Unknown Address Unknown Organization K01:[facility] [address] [place] [address] Laboratory Report Ordering Provider Test Date Status WARREN ADAMS 01/05/2024 10:34:46 Final Observation Date Value Abnormality Reference (Units ) Status Magnesium 01/05/2024 10:34:46 1.8 1.5-2.6 (m g/dL) Final Performing Location [facility] [address] [place] [address]
--- OUTSIDE RECORDS SUMMARY | 2024-01-18 23:39 | External Medical Summary | Summary of Care ---
Author Name Unknown Organization [facility] Address [address] [facility] [place] [address] Phone [phone] Care Team Providers Care Energy Scheduler Name Role Phone Yasemin Newsome PA-C Primary Care Provider [phone] Reason for Visit * Reason Comments Outpatient Testing Encounter Details Date Type Department Care Team (Late st Contact Info) Description 01/14/2024 10:50 AM EDT Laboratory Laboratory, [facility] [place] [phone] [facility] 132 [facility] [place] [address] Arrived Allergies Active Allergy Reactions Criticality Noted Date [...] THE MORNING 90 Capsule 1 08/17/2023 Active Jarratt Carbonate 300 MG Oral Capsule (Eskalith) Take [...] test 07/27/2022 Coronary artery disease invo lving [place] coronary artery of [place] heart with angina pectoris 07/27/2022 Prediabetes 07/10/2022 [...] Date Resolved Date Genetic Sleep Disorder Resea [facility] Other*[id number] 05/30/2011 12/01/2015 Acute bronchitis, complicated 08/27/2009 06/08/2017 [...] Care Team (Latest Contact Info) Description 01/14/2024 10:40 AM EDT Laboratory Laboratory, [facility] [address] [facility] [place] [phone] Vivienne [address] 132 [facility] [place] [address] HTN, goal below 140/90; Hyponatremia; Hypomagnesemia; Hyperkalemia 01/14/2024 12:30 PM EDT Telemedicine Psychiatry, [facility] [address] [facility] [place] [address] Mao Santos MD [address] [place] [address] 03/18/2024 11:00 AM EST Office Visit [facility] [address] [place] [address] Yasemin Newsome PA-C [address] [place] [address] 03/20/2024 2:00 PM EST Office Visit [facility] Disorders Ctr [facility] [place] [phone] Francesca Ford CRNP 132 [facility] [place] [address] 04/08/2024 8:46 AM EST Hospital Encounter OR [facility], Operating Room [facility] [address] [place] [phone] Hiram Latham MD [address] [place] [address] 04/08/2024 8:46 AM EST - 04/08/2024 9:24 AM EST Surgery OR [facility], Operating Room [facility] [address] [place] [phone] Hiram Latham MD [address] [place] [address] RIGHT EXTRACAPSULAR CATARACT REMOVAL WITH INTRAOCULAR LENS 04/14/2024 8:00 AM EST Office Visit Orthopaedics [facility] [address] [place] [address] Mark García, DO [address] [place] [address] 04/15/2024 10:17 AM EST Hospital Encounter OR [facility], Operating Room [facility] [address] [place] [address] Hiram Latham MD [address] [place] [address] 04/15/2024 10:17 AM EST - 04/15/2024 10:55 AM EST Surgery OR [facility], Operating Room [facility] [address] [place] [address] Hiram Latham MD [address] [place] [address] LEFT EXTRACAPSULAR CATARACT REMOVAL WITH INTRAOCULAR LENS 04/21/2024 8:00 AM EST Office Visit Orthopaedics [facility] [address] [place] [address] Mark García, DO [address] [place], [place] [address] 04/28/2024 8:00 AM EST Office Visit Orthopaedics [facility] [address] [place] [address] Mark García, DO [address] [place], [place] [address] 07/18/2024 11:00 AM EDT Office Visit Cardiology, [facility] [address] [place] [address] Darian Welch PA-Amy [address] [place] [address] 09/01/2024 7:40 AM EDT Office Visit Nephrology, Merissa Dobbins [facility] [place], [place] [address] Radha Sawyer MD [address] [facility] [place], [place] [address] 09/04/2024 1:00 PM EDT Office Visit [facility] [address] [place] [phone] Yasemin Newsome PA-C [address] [place] [address] Scheduled Procedures Name Priority Associated Diagnoses Date/Ti [...] 12/23/2021, Additional history exists GFR 01/04/2025 01/05/2024, 11/29, 12/19/2023, Additional history exists Colonoscopy 04/06/2025 04/06/2015, [...] filedocumented as of this encounter Care Teams Energy Scheduler Relationship Specialty Start Date End Date Yasemin Newsome PA-C [address] [facility] [place] [address] PCP - General Physician Access Specialist 06/11/20 documented as of this encounter
--- OUTSIDE RECORDS SUMMARY | 2024-01-18 23:39 | External Medical Summary | Summary of Care ---
Author Name Unknown Organization [facility] Address [address] [facility] [place] [address] Phone [phone] Care Team Providers Care Sinker Puller Name Role Phone Yasemin Newsome PA-C Primary Care Provider [phone] Reason for Visit * Reason Comments Outpatient Testing Encounter Details Date Type Department Care Team (Late st Contact Info) Description 01/14/2024 10:40 AM EDT Laboratory Laboratory, [facility] [address] [place] [address] [facility] [address] [place] [address] HTN, goal below 140/90; Hyponatremia; Hypomagnesemia; Hyperkalemia; Bipolar 1 disorder (HCC) Allergies Active Allergy Reactions Criticality Noted Date Comments Bupropion High 01/22/2020 Other reaction(s): SKIN IRRITATION Chlorthalidone Other (Please comment) Medium hyponatremia documented as of this encounter (statuses as of 01/15/2024) Medications Medication Sig Dispensed Refills Start Date [...] THE MORNING 90 Capsule 1 08/17/2023 Active Furosemide 20 MG Oral Tablet (Lasix)Indications: [...] by mouth in the morning. 01/09/2024 Active [place] Carbonate 150 MG Oral Capsule (Eskalith) Take 1 Capsule by mouth every night at bedtime. Total of 450mg nightly 30 Capsule 2 01/15/2024 Active [place] Carbonate 300 MG Oral Tablet (Eskalith) Take 1 Tablet by mouth every night at bedtime. 30 Tablet 2 01/15/2024 Active [place] Carbonate 300 MG Oral Capsule (Eskalith) Take 2 Capsules by mouth every night at bedtime. 60 Capsule 5 09/10/2023 01/15/20 24 Discontinued Lisinopril 40 MG Oral TabletIndications:H TN, goal below 140/90 TAKE 1/2 (ONE-HALF) TABLET BY MOUTH IN THE MORNING 15 Tablet 3 09/18/2023 01/14/20 24 Discontinued documented as of this encounter (statuses as of 01/15/2024) Active Problems Problem Noted Date Diagnosed Date Dyspnea and respiratory abnormalities 11/15/2022 Abnormal nuclear stress test 07/27/2022 Coronary artery disease invo lving [place] coronary artery of [place] heart with angina pectoris 07/27/2022 Prediabetes 07/10/2022 [...] as of this encounter (statuses as of 01/15/2024) Resolved Problems Problem Noted Date Diagnosed Date Resolved Date Genetic Sleep Disorder Resea [facility] Other*[id number] 05/30/2011 12/01/2015 Acute bronchitis, complicated 08/27/2009 06/08/2017 Pneumonia due to organism 08/27/2009 Overview: ICD-10 update of inactive term ADVANCE DIRECTIVE INFORMATION 01/25/2005 06/08/2017 Overview: No, Advance Directive brochure offered , patient declined. documented as of this encounter (statuses as of 01/15/2024) Immunizations Name Administration Dates Next Due HEP A - Hepatitis A (Adult > 18 yrs) 08/02/2020, 02/02/2020 Hepatitis B, 20+ yrs 08/02/2020,03/04/2020,02/01 Seasonal Influenza, [place] t, (IIV3), with Preserv, (Fluzone) 03/11/2007,02/25/2002,05/29/2000, 999 TDAP (age 10 and older)(Boostrix) 03/11/2012 TDAP, Age 7 and older, IM (Adacel) 04/21/2008(De mary alice: Patient Refused) documented as of this encounter [...] as of this encounter Progress Notes * Angel Santos MD - 01/15/2024 8:49 AM EDT Called pt re: lithium level of 1.3. recommend decreasing to 450mg nightly. States he has noticed increased tremor over the last couple of months. Re- ordered level for 01/20 documented in this encounter Miscellaneous Notes * Addendum Note - Angel Santos MD - 01/15/2024 8:54 AM EDTAddended by: ANGEL SANTOS on: 01/15/2024 08:54 AM Modules accepted: Orders * Result Encounter Note - Darian Welch PA-C - 01/14/2024 5:09 PM EDT Decrease spironolactone dosing from 75 mg/day to 50 mg/day Check a follow-up basic metabolic panel in 10 to 14 days. documented in this encounter Plan of Treatment Upcoming Encounters Date Type Department Care Team (Latest Contact Info) Description 03/18/2024 11:00 AM EST Office Visit [facility] [address] [facility] [phone] Yasemin Newsome PA-C [address] [facility] [address] 03/20/2024 2:00 PM EST Office Visit Sleep Disorders Ctr [facility] [address] [facility] [place] [phone] Francesca Ford CRNP 132 [facility] [place] [address] 04/08/2024 10:34 AM EST Hospital Encounter OR [facility], Operating Room [facility] [address] [place] [phone] Hiram Latham MD [address] [place] [address] 04/08/2024 10:34 AM EST - 04/08/2024 11:12 AM EST Surgery OR [facility], Operating Room [facility] [address] [place] [phone] Hiram Latham MD [address] [place] [address] RIGHT EXTRACAPSULAR CATARACT REMOVAL WITH INTRAOCULAR LENS 04/14/2024 8:00 AM EST Office Visit Orthopaedics [facility] [address] [place] [address] Mark García, [address] [place] [address] 04/15/2024 10:05 AM EST Hospital Encounter OR [facility], Operating Room [facility] [address] [place] [address] Hiram Latham MD [address] [place] [address] 04/15/2024 10:05 AM EST - 04/15/2024 10:43 AM EST Surgery OR [facility], Operating Room [facility] [address] [place] [phone] Hiram Latham MD [address] [place] [address] LEFT EXTRACAPSULAR CATARACT REMOVAL WITH INTRAOCULAR LENS 04/21/2024 8:00 AM EST Office Visit Orthopaedics [facility] [address] [place] [address] Mark García, DO [address] [place] [address] 04/28/2024 8:00 AM EST Office Visit Orthopaedics [facility] [address] [place] [address] Mark García, DO [address] [place] [address] 07/18/2024 11:00 AM EDT Office Visit Cardiology, [facility] [address] [place] [address] Darian Welch PA-C [address] [place] [address] 09/01/2024 7:40 AM EDT Office Visit Nephrology, [facility] 200 [facility] [place] [address] Radha Sawyer MD 200 [facility] [place] [address] 09/04/2024 1:00 PM EDT Office Visit [place] [address] [facility] [place] [phone] Yasemin Newsome PA-C [address] [place] [address] Scheduled Orders Name Type Priority Associated Diagnoses Orde r Schedule LITHIUM LEVEL Lab Routine Bipolar 1 disorder (HCC) Expected: 01/21/2024, Expires: 01/14/2025 Scheduled Procedures Name Priority Associated Diagnoses Date/Ti me EXTRACAPSULAR CATARACT REMOVAL WITH INTRAOCULAR LENS Combined forms of age-related cataract of right eye 04/08/2024 10:34 AM EST EXTRACAPSULAR CATARACT REMOVAL WITH INTRAOCULAR LENS Combined forms of age-related cataract of left eye 04/15/2024 10:05 AM EST COLONOSCOPY FLEXIBLE PROXIMAL DIAGNOSTIC Recall [...] Not on filedocumented as of this encounter Procedures Procedure Name Priority Date/Time Associated Diagnosis Comments BASIC METABOLIC PANEL Routine 01/14/2024 10:04 AM EDT HTN, goal below 140/90 Hyponatremia Hypomagnesemia MAGNESIUM Routine 01/14/2024 10:04 AM EDT Hypomagnesemia LITHIUM LEVEL Routine 01/14/2024 10:04 AM EDT Bipolar 1 disorder (HCC) documented in this encounter Results * (ABNORMAL) LITHIUM LEVEL (01/14/2024 10:04 AM EDT) [place] Level 1.3(H) 0.6 - 1.2 mmol/L 01/14/2024 4:25 PM EDT LABORATORY C Blood Venous blood specimen / Unknown Venipuncture / Unknown 01/14/2024 10:04 AM EDT 01/14/2024 10:04 AM EDT Angel Santos MD LAB BLOOD ORDE CANDE Performing Organization Address City/[facility]/ZIP Co de Phone Number LABORATORY [facility] [address] [place] [address] * MAGNESIUM (01/14/2024 10:04 AM EDT) Pathologist [facility] Magnesium 1.9 1.5 - 2.6 mg/dL 01/14/2024 4:25 PM EDT LABORATORY [facility] Blood Venous blood specimen / Unknown Venipuncture / Unknown 01/14/2024 10:04 AM EDT 01/14/2024 10:04 AM EDT Yasemin Newsome PA-C LAB BLOOD ORDERAB LES LABORATORY [facility] [address] [place] [address] * (ABNORMAL) BASIC METABOLIC PANEL (01/14/2024 10:04 AM EDT) BUN 26(H) 6 - 20 mg/dL 01/14/2024 11:40 AM EDT LABORATORY [place] 57-10 CREATININE 1.2 0.6 - 1.2 mg/dL 01/14/2024 11:40 AM EDT LABORATORY [place] 57-10 EGFR 68 >=60 mL/min 01/14/2024 11:40 AM EDT LABORATORY [place] 57-10 Comment:eGFR is calculated b ased on the CKD-EPI 2020 equation. SODIUM 132(L) 135 - 146 mmol/L 01/14/2024 11:40 AM EDT LABORATORY [place] 57-10 POTASSIUM 5.1 3.5 - 5.1 mmol/L 01/14/2024 11:40 AM EDT LABORATORY [place] 57-10 CHLORIDE 95(L) 98 - 107 mmol/L 01/14/2024 11:40 AM EDT LABORATORY [place] 57-10 CO2 23 22 - 32 mmol/L 01/14/2024 11:40 AM EDT LABORATORY [place] 57-10 ANION GAP 14 7 - 15 mmol/L 01/14/2024 11:40 AM EDT LABORATORY [place] 57-10 GLUCOSE 142(H) 70 - 120 mg/dL 01/14/2024 11:40 AM EDT LABORATORY [place] 57-10 CALCIUM 10.4(H) 8.4 - 10.2 mg/dL 01/14/2024 11:40 AM EDT LABORATORY [place] 57-10 Blood Venous blood specimen / Unknown Venipuncture / Unknown 01/14/2024 10:04 AM EDT 01/14/2024 10:04 AM EDT Yasemin Newsome PA-C LAB BLOOD ORDERAB LES LABORATORY [place] 57-10 [address] [facility] [place] [address] documented in this encounter Visit Diagnoses Diagnosis HTN, goal below 140/90 Unspecified essential hypertension Hyponatremia Hyposmolality and/or hyponatremia Hypomagnesemia Disorders of magnesium metabolism Hyperkalemia Hyperpotassemia Bipolar 1 disorder (HCC) Bipolar I disorder, most recent episode (or current) unspecified Combined forms of age-related cataract of right eye Other and combined forms of senile cataract Combined forms of age-related cataract of left eye Other and combined forms of senile cataract documented in this encounter Care Teams Sinker Puller Relationship Specialty Start Date End Date Yasemin Newsome PA-C [address] [facility] [phone] PCP - General Physician Foam Rubber Fabricator 06/11/20 documented as of this encounter
--- OUTSIDE RECORDS SUMMARY | 2024-01-18 23:39 | External Medical Summary | Summary of Care ---
Author Name Unknown Organization [facility] Address [address] [place] [address] Phone [phone] Care Team Providers Care An/Syq 13 Nav/C2 Operator Name Role Phone Yasemin Newsome PA-C Primary Care Provider [phone] Encounter Details Date Type Department Care Team (Late st Contact Info) Description 12/31/2023 Orders Only Neurology [address] [place] [phone] Kaye Balderas, MS [address] [place] [address] Genetic testing* Allergies Active Allergy Reactions Criticality Noted Date Comments Bupropion High 01/22/2020 Other reaction(s): SKIN IRRITATION Chlorthalidone Other (Please comment) Medium 3 hyponatremia documented as of this encounter (statuses as of 01/01/2024) Medications Medication Sig Dispensed Refills Start Date [...] by mouth in the morning. 12/04/2022 Active Escitalopram Oxalate 10 MG Oral Tablet (Lexapro) Take 1 Tablet by mouth in the morning. 90 Tablet 1 12/12/2022 Active Metoprolol Succinate ER 25 MG Oral [...] THE MORNING 90 Capsule 1 08/17/2023 Active [place] Carbonate 300 MG Oral Capsule (Eskalith) Take [...] AND SUNDAY 39 Tablet 1 11/28/2023 Active documented as of this encounter (statuses as of 01/01/2024) Active Problems Problem Noted Date Diagnosed Date Dyspnea and respiratory abnormalities 11/15/2022 Abnormal nuclear stress test 07/27/2022 Coronary artery disease invo lving [place] coronary artery of [place] heart with angina pectoris 07/27/2022 Prediabetes 07/10/2022 [...] as of this encounter (statuses as of 01/01/2024) Resolved Problems Problem Noted Date Diagnosed Date Resolved Date Genetic Sleep Disorder Resea [facility] Other*[id number] 05/30/2011 12/01/2015 Acute bronchitis, complicated 08/27/2009 06/08/2017 Pneumonia due to organism 08/27/2009 Overview: ICD-10 update of inactive term ADVANCE DIRECTIVE INFORMATION 01/25/2005 06/08/2017 Overview: No, Advance Directive brochure offered , patient declined. documented as of this encounter (statuses as of 01/01/2024) Immunizations Name Administration Dates Next Due HEP [...] Description 03/18/2024 11:00 AM EST Office Visit [facility] [address] [facility] [place] [phone] Yasemin Newsome PA-C [address] [facility] [id number] 03/20/2024 2:00 PM EST Office Visit [facility] Disorders Ctr [facility] [address] [place] [address] Francesca Ford CRNP [address] [place] [address] 03/26/2024 8:30 AM EST Office Visit Cardiology, [facility] [address] [place] [address] Darian Welch PA-C [address] [place] [address] 04/08/2024 8:46 AM EST Hospital Encounter [facility], Operating Room [facility] [address] [place] [phone] Hiram Latham MD [address] [address] 04/08/2024 8:46 AM EST - 04/08/2024 9:24 AM EST Surgery OR [facility], Operating Room [facility] [address] [place] [phone] Hiram Latham MD [address] [place] [address] RIGHT EXTRACAPSULAR CATARACT REMOVAL WITH INTRAOCULAR LENS 04/14/2024 8:00 AM EST Office Visit Orthopaedics [facility] [address] [place] [address] Mark García, [address] [place] [address] 04/15/2024 10:17 AM EST Hospital Encounter OR [facility], Operating Room [facility] [address] [place] [phone] Hiram Latham MD [address] [place] [address] 04/15/2024 10:17 AM EST - 04/15/2024 10:55 AM EST Surgery OR [facility], Operating Room [facility] [address] [place] [phone] Hiram Latham MD [address] [place] [address] LEFT EXTRACAPSULAR CATARACT REMOVAL WITH INTRAOCULAR LENS 04/21/2024 8:00 AM EST Office Visit [facility] [address] [place] [address] Mark García, DO [address] [place] [address] 04/28/2024 8:00 AM EST Office Visit [facility] [address] [place] [address] Mark García, DO [address] [place] [address] 09/01/2024 7:40 AM EDT Office Visit Nephrology, [facility] [address] [facility] [place] [address] Radha Sawyer MD [address] [place] [address] 09/04/2024 1:00 PM EDT Office Visit [facility] [address] [place] [phone] Yasemin Newsome PA-C [address] [place] [address] Scheduled Orders Name Type Priority Associated Diagnoses Orde r Schedule [facility] Lab Routine Genetic testing Expected: 01/08/2024, Expires: 12/30/2024 Scheduled Procedures Name Priority Associated Diagnoses Date/Ti [...] or Tdap) 03/11/2022 03/11/2012 COVID-19 Vaccine ( - season) 2023 Influenza Vaccine (FLU shot) [...] as of this encounter Visit Diagnoses Diagnosis Genetic testing- Primary Other investigation and testing for procreative management Combined forms of age-related cataract of right eye Other and combined forms of senile cataract Combined forms of age-related cataract of left eye Other and combined forms of senile cataract documented in this encounter Care Teams An/Syq 13 Nav/C2 Operator Relationship Specialty Start Date End Date Yasemin Newsome PA-C [address] [facility] [place] [address] PCP - General Physician Associate Spa Director 06/11/20 documented as of this encounter
--- OUTSIDE RECORDS SUMMARY | 2024-01-18 23:39 | External Medical Summary | Summary of Care ---
Author Name Unknown Organization [facility] Address [address] [facility] [place] [address] Phone [phone] Care Team Providers Care Carpenter Foreman Name Role Phone Yasemin Newsome PA-C Primary Care Provider [phone] Reason for Visit * Reason Comments Outpatient Testing Encounter Details Date Type Department Care Team (Late st Contact Info) Description 01/14/2024 10:40 AM EDT Laboratory Laboratory, [facility] [place] [address] [facility] 132 [facility] [place] [address] HTN, goal below 140/90; Hyponatremia; Hypomagnesemia; Hyperkalemia Allergies Active Allergy Reactions Criticality Noted Date [...] THE MORNING 90 Capsule 1 08/17/2023 Active [place] Carbonate 300 MG Oral Capsule (Eskalith) Take [...] test 07/27/2022 Coronary artery disease invo lving [place] coronary artery of [place] heart with angina pectoris 07/27/2022 Prediabetes 07/10/2022 [...] Date Resolved Date Genetic Sleep Disorder Resea [facility] Other*[id number] 05/30/2011 12/01/2015 Acute bronchitis, complicated 08/27/2009 06/08/2017 [...] Care Team (Latest Contact Info) Description 01/14/2024 10:50 AM EDT Laboratory Laboratory, [facility] [address] [place] [phone] Vivienne Steward [address] [facility] [place] [address] Arrived 01/14/2024 12:30 PM EDT Telemedicine Psychiatry, [facility] [address] [facility] [place] [address] Mao Santos MD [address] [place] [address] 03/18/2024 11:00 AM EST Office Visit [facility] [address] [place] [address] Yasemin Newsome PA-C [address] [place] [address] 03/20/2024 2:00 PM EST Office Visit [facility] Disorders Ctr [facility] [address] [facility] [place] [phone] Francesca Ford CRNP [address] [facility] [place] [address] 04/08/2024 8:46 AM EST Hospital Encounter OR [facility], Operating Room [facility] [address] [place] [phone] Hiram Latham MD [address] [place] [address] 04/08/2024 8:46 AM EST - 04/08/2024 9:24 AM EST Surgery [facility], [facility] [place] [phone] Hiram Latham MD [address] [place] [address] RIGHT EXTRACAPSULAR CATARACT REMOVAL WITH INTRAOCULAR LENS 04/14/2024 8:00 AM EST Office Visit Orthopaedics [facility] [address] [facility] [place] [address] Mark García, DO [address] [place] [address] 04/15/2024 10:17 AM EST Hospital Encounter [facility], Operating Room [facility] [address] [place] [address] Hiram Latham MD [address] [place] [address] 04/15/2024 10:17 AM EST - 04/15/2024 10:55 AM EST Surgery OR [facility], Operating Room [facility] [address] [place] [address] Hiram Latham MD [address] [place] [address] LEFT EXTRACAPSULAR CATARACT REMOVAL WITH INTRAOCULAR LENS 04/21/2024 8:00 AM EST Office Visit Orthopaedics [facility] [address] [place] [address] Mark García, DO [address] [place], [place] [address] 04/28/2024 8:00 AM EST Office Visit Orthopaedics [facility] [address] [place] [address] Mark García, DO [address] [place], [place] [address] 07/18/2024 11:00 AM EDT Office Visit Cardiology, [facility] [address] [place] [address] Darian Welch PA-Amy [address] [place] [address] 09/01/2024 7:40 AM EDT Office Visit Nephrology, [facility] [address] [facility] [address] [place], [place] [address] Radha Sawyer MD [address] [facility] [place], [place] [address] 09/04/2024 1:00 PM EDT Office Visit [facility] [address] [place] [phone] Yasemin Newsome PA-C [address] [place] [address] Pending Results Name Type Priority Associated Diagnoses Date /Time BASIC METABOLIC PANEL Lab Routine HTN, goal below 140/90 Hyponatremia Hypomagnesemia 01/14/2024 10:04 AM EDT MAGNESIUM Lab Routine Hypomagnesemia 01/14/2024 10:04 AM EDT Scheduled Procedures Name Priority Associated [...] Hypomagnesemia Disorders of magnesium metabolism Hyperkalemia Hyperpotassemia Combined forms of age-related cataract of right eye Other and combined forms of senile cataract Combined forms of age-related cataract of left eye Other and combined forms of senile cataract documented in this encounter Care Teams Carpenter Foreman Relationship Specialty Start Date End Date Yasemin Newsome PA-C [address] [facility] [place] [address] PCP - General Physician Needle Valve Operator 06/11/20 documented as of this encounter
--- OUTSIDE RECORDS SUMMARY | 2024-01-18 23:39 | External Medical Summary ---
Author Name Unknown Address Unknown Organization K01:[facility] [place] [address] [place] [address] Laboratory Report Ordering Provider Test Date Status DEMARCO ORTIZ 01/14/2024 10:04:09 Final Observation Date Value Abnormality Reference (Units ) Status Tatum [Moles/volume] in Blood 01/14/2024 10:04:09 1.3 Above high normal 0.6-1.2 (mmol/L) Final Performing Location [facility] [place] [address] [place] [address]
--- OUTSIDE RECORDS SUMMARY | 2024-01-18 23:39 | External Medical Summary ---
Author Name Unknown Address Unknown Organization K01:[facility] - [address] [place] [address] Laboratory Report Ordering Provider Test Date Status WARREN ADAMS 01/14/2024 10:04:09 Final Observation Date Value Abnormality Reference (Units ) Status Magnesium 01/14/2024 10:04:09 1.9 1.5-2.6 (m g/dL) Final Performing Location [facility] - [address] [place] [address]
--- OUTSIDE RECORDS SUMMARY | 2024-01-18 23:39 | External Medical Summary | Summary of Care ---
Author Name Unknown Organization [facility] Address [address] [facility] [place] [address] Phone [phone] Care Team Providers Care Natural Gas Basis Trader Name Role Phone Yasemin Newsome PA-C Primary Care Provider [phone] Reason for Visit * Reason Comments Emergency Department Follow-Up [facility] ED - hyponatremia and confusion. 6 1/2 month follow up. Shakiness occurs everyday. Dizziness when standing still intermittently but not as bad as prior with medication reduction. SOB ongoing but no worse then prior. Denies chest pain, edema and palpitations. Encounter Details Date Type Department Care Team (Late st Contact Info) Description 01/09/2024 10:30 AM EDT Office Visit Cardiology, [facility] [address] [place] [address] Darian Welch PA-C [address] [place] [address] Hyponatremia*; HTN, goal below 140/90; Hyperkalemia Allergies Active Allergy Reactions Criticality Noted Date Comments Bupropion High 01/22/2020 Other reaction(s): SKIN IRRITATION Chlorthalidone Other (Please comment) Medium 3 hyponatremia documented as of this encounter (statuses as of 01/10/2024) Medications Medication Sig Dispensed Refills Start Date [...] THE MORNING 90 Capsule 1 08/17/2023 Active Dewart Carbonate 300 MG Oral Capsule (Eskalith) Take 2 Capsules by mouth every night at bedtime. 60 Capsule 5 09/10/2023 Active Lisinopril 40 MG Oral TabletIndications:H TN, goal below 140/90 TAKE 1/2 (ONE-HALF) TABLET BY MOUTH IN THE MORNING 15 Tablet 3 09/18/2023 Active Furosemide 20 MG Oral Tablet (Lasix)Indications: [...] by mouth in the morning. 01/09/2024 Active Spironolactone 50 MG Oral Tablet (Aldactone)Indicati ons:HTN, goal below 140/90 Take 2 Tablets by mouth in the morning. In the morning.. 180 Tablet 3 07/24/2023 01/09/20 24 Discontinued documented as of this encounter (statuses as of 01/10/2024) Active Problems Problem Noted Date Diagnosed Date Dyspnea and respiratory abnormalities 11/15/2022 Abnormal nuclear stress test 07/27/2022 Coronary artery disease invo lving [place] coronary artery of [place] heart with angina pectoris 07/27/2022 Prediabetes 07/10/2022 [...] as of this encounter (statuses as of 01/10/2024) Resolved Problems Problem Noted Date Diagnosed Date Resolved Date Genetic Sleep Disorder [facility] Other*[id number] 05/30/2011 12/01/2015 Acute bronchitis, complicated 08/27/2009 06/08/2017 Pneumonia due to organism 08/27/2009 Overview: ICD-10 update of inactive term ADVANCE DIRECTIVE INFORMATION 01/25/2005 06/08/2017 Overview: No, Advance Directive brochure offered , patient declined. documented as of this encounter (statuses as of 01/10/2024) Immunizations Name Administration Dates Next Due HEP [...] on file documented as of this encounter Last Filed Vital Signs Vital Sign Reading Time Taken Comments Blood Pressure 110/56 01/09/2024 10:32 AM EDT Pulse 72 01/09/2024 10:32 AM EDT Temperature - - Respiratory Rate 16 01/09/2024 10:32 AM EDT Oxygen Saturation - - Inhaled Oxygen Concentration - - Weight 149.8 kg (330 lb 4 oz) 01/09/2024 10:32 A M EDT Height - - Body Mass Index 42.4 12/17/2023 11:44 AM EDT documented in this encounter Progress Notes * Darian Welch PA-C - 01/09/2024 10:42 AM EDT History of Present Illness: Jamari Malin is a very pleasant 58 year old male with longstanding resistant hypertension who returns today for routine cardiology follow-up. Evaluated at [facility] ER on December 15, 2023 with intermittent confusion. Serum Sodium 125 mmol/L. Patient received 1 L normal saline with significant improvement in presenting symptoms. Left ER against medical advice. Weight is up 13 lb since last evaluation, attributed to eating more seafood and working less, spending more time at their second home just outside of [place], [place]. Dizziness has improved following reduction in terazosin dosing though continues on a regular basis.No chest pain. No sublingual nitroglycerin use. No palpitations. Stable exertional dyspnea. No fluid retention. No syncope. No fevers or chills. No melena or hematochezia. Chronic hip pain and low back pain. Notes increased range of motion following chiropractic manipulation Problem List: ASCVD. Diagnostic cardiac catheterization, following abnormal stress testing, transpiring on July 27, 2022 and revealed a 100% chronic total occlusion of the proximal RCA with [id number] collaterals and mild diffuse disease elsewhere. Longstanding labile hypertension. 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 Diffuse arthritis Patient Active Problem List Diagnosis Dermatitis HTN, goal below 140/90 TOBACCO USE DISORDER- ORAL Other specified forms of hearing loss Other chronic allergic conjunctivitis Sleep apnea, obstructive Sleep related hypoxia Body mass index (BMI) of 40.0 to 44.9 in adult (HCC) Lung granuloma (HCC) Chronic diastolic heart failure (HCC) Fatty liver Idiopathic chronic gout without tophus Other instability, left ankle Gastroesophageal reflux disease without esophagitis Bipolar disorder, currently in remission, most recent episode unspecified (HCC) Prediabetes Abnormal nuclear stress test Coronary artery disease involving [place] coronary artery of [place] heart with angina pectoris (HCC) Dyspnea and respiratory abnormalities Past Medical History: Diagnosis Date Alcohol abuse, unspecified HTN, goal to be determined Other specified forms of hearing loss right Sleep apnea, obstructive Past Surgical History: Procedure Laterality Date COLONOSCOPY, DIAGNOSTIC (RECTUM) 04/06/2015 diverticulosis, repeat 10 yrs/COLONOSCOPY FLEXIBLE PROXIMAL DIAGNOSTIC performed by Gaetano Curran MD at [facility] CORONARY ANGIOGRAPHY W/LEFT HEART CATH Right 07/27/2022 CORONARY ANGIOGRAPHY W/LEFT HEART CATH [place] Jud[place] [facility] [place]OVAL OF EAR POLYP 1973 REPAIR INGUINAL HERNIA, UNDER 6 MO VASECTOMY 10/1999 [facility] Family History Problem Relation Name Age of Onset Heart Disorder Grandmother (Paternal) Heart Disorder Father Hypertension Father Diabetes Father Stroke Father Lung Disorder Father Pulmonary fibrosis; age 76 Cancer Grandfather (Maternal) lung Arthritis Mother Hypertension Mother Hypertension Sister Pati Hypertension Brother Darian Family Status Relation Status PGMA (Not Specified) Fa (Not Specified) Social History: No cigarettes. Chronic smokeless tobacco user since the age of 9. Alcohol: Previously drinking 12-18 12 ounce beers per night, switching to NA around 12/2019 then drinking whiskey, one glass per night. to [place]. Two children. 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 Home 4 miles outside of [place], [place], next door to his [id number]. Complete Review of Systems is as stated above, negative, or noncontributory. Review of patient's allergies indicates: Allergen Reactions Bupropion Other reaction(s): SKIN IRRITATION Chlorthalidone Other (Please comment) hyponatremia Current Outpatient Medications Medication Sig Dispense Refill CPAP every night at bedtime. Aspirin 81 MG Oral Tablet Delayed Release [...] BY MOUTHIN THE MORNING 90 Tablet 3 Spironolactone 50 MG Oral Tablet (Aldactone) Take 2 Tablets by mouth in the morning. In the morning.. 180 Tablet 3 Omeprazole 20 MG Oral Capsule Delayed Release (PriLOSEC) TAKE 1 CAPSULE BY MOUTH AT BEDTIME OR FIRST THING IN THE MORNING 90 Capsule 1 Dewart Carbonate 300 MG Oral Capsule (Eskalith) Take [...] MOUTH IN THE MORNING 180 Tablet 3 Escitalopram Oxalate 10 MG Oral Tablet (Lexapro) Take 1 Tablet by mouth in the morning. 90 Tablet 1 Pulse Oximeter Use as directed. Use to monitor heart rate and oxygen levels daily 1 Each 1 Rosuvastatin Calcium 5 MG Oral Tablet (Crestor) TAKE 1 TABLET BY MOUTH ON SUNDAY, SUNDAY AND SUNDAY 39 Tablet 1 No current facility-administered medications for this visit. OBJECTIVE/PHYSICAL EXAMINATION: BP 110/56 | Pulse 72 | Resp 16 | Wt (!) 149.8 kg (330 lb 4 oz) | BMI 42.40 kg/m | BSA 2.8 m General: A&Ox3. NAD. HENT: Normocephalic. Atraumatic. Eyes: PER. Conjunctiva pink, sclera clear. Neck: No JVD Lungs: Clear. No wheeze. No rales. No rhonchi. Heart: RRR. Soft systolic murmur. No diastolic murmur. Abdomen: + BS. Extremities: No clubbing or cyanosis. No edema. Limited neurological examination is without focal deficits. Data: November 07, 2018 DAVID [facility] The stress echo is negative for inducible ischemia. Exercise capacity is below average. Heart rate response to stress was normal. Blood pressure response to exercise was hypertensive. The stress EKG response showed no evidence of ischemia. Occasional PVCs were noted with stress. Atypical chest pain was noted with stress.The left ventricular wall motion is normal. The left ventricular wall motion with stress is normal.The left ventricular ejection fraction increases normally with stress. The left ventricular cavity size is normal. The LV wall thickness is moderately increased (concentric). The qualitative LV ejection fraction is 65-69% (normal). October 2020 Aortic Duplex: No evidence of an abdominal aortic aneurysm. September 2021 DHRUV Impression: DHRUV at rest is 1.3 on the right and 1.3 on the left. For the right lower extremity: Lower extremity Doppler Evaluation is normal at rest with no evidence of significant arterial occlusive disease. For the left lower extremity: Lower extremity Doppler Evaluation is normal at rest with no evidence of significant arterial occlusive disease. June 26, 2022 TTE Interpretation Summary (as per Dr. Vasquez): The LV wall thickness is mildlyincreased (concentric). There is isolated basal septal hypertrophy with maximal thickness of 1.9 cm. The left ventricular wall motion is normal. The qualitative LV ejection fraction is 55-59% (normal). The left atrium is mildly enlarged. The left ventricular diastolic function is mildly abnormal (grade I). Mild aortic valve sclerosis is present. Aortic stenosis is absent. The aortic root is mildly enlarged. The proximal ascending thoracic aorta is normal sized.Compared to the report of the previous study performed 07/14/2020, grade 1 diastolic dysfunction is noted on the current study. The aor tic root diameter was measured to bne 4.1 cm at that time. June 30, 2022 Lexiscan Interpretation Summary (as per Dr. Lino): Abnormal Lexiscan nuclear stress test. Lexiscan nuclear cardiac stress test positive for reversible ischemia. TID abnormal at 1.25.There is reversibility in the inferior and inferoseptal wall(s). The defect is medium in size. Moderate inducible hypokinesis of the inferior and inferoseptal [place]. EF calculated to be 67%. July 27, 2022 Coronary Angiography ([facility]) the coronary arteries have significant 1 vessel disease proximal RCA with 100% STREET CLEANING EQUIPMENT OPERATOR with [id number] collaterals. Mild diffuse disease elsewhere. August 2022 Cardiac MRI Interpretation Summary: The basal septum is thickened and angulated consistentwith sigmoid septum. The LV wall thickness is mildly increased.Concentric hypertrophy otherwise. The basal interventricular septal thickness in diastole is 17 mm.There is a aberrant chord attached tothe basal septum making the septum appear thick. Myocardial infarction noted on late gadolinium enhanced imaging of the right coronary artery territory.The inferior segments are scarred (<25%) at the mid and apical levels. The inferior segment is scarred(50-75%) at the base. The estimated LV ejection fraction is 68%. The calculated RV ejection fraction is 52% December 15, 2023 EKG: Normal sinus rhythm at 80 bpm. Poor R-wave progression. QTc 463 ms. ASSESSMENT: Longstanding labile hypertension [facility] ER evaluation on December 14 with intermittent confusion, acute on chronic hyponatremia (125 mmol/L), receiving 1 L of normal saline solution with significant improvement in presenting symptoms, leaving against medical advice. Ongoing intermittent dizziness, symptomatic orthostasis Laboratory work on January 05, 2024 with mild hyperkalemia (5.2), improved hyponatremia at 133, 134 when corrected for the glucose of 142. BUN 15. Creatinine 1.1. Calcium 10.1. Anion gap 10. Bicarb 25. Chloride 98. Stable ASCVD Dyslipidemia. Patient currently off of rosuvastatin due to abnormal LFTs Obesity. Obstructive sleep apnea, on CPAP supplementation RECOMMENDATIONS/PLAN: Options of management discussed. Noting symptoms and recent laboratory findings, recommend reduction in spironolactone dosing from 100 mg/day to 75 mg/day. Follow-up basic metabolic panel requested to be obtained in 2 weeks.Statin therapy will remain on hold for now. Weight loss recommended along with reduction in alcohol intake. Cardiology follow-up with the above, routinely in 6 months, or as needed. ER with emergencies Darian Welch PA-C Department of Cardiology I spent a total of 30-39 minutes (exact time 33 mins) on the date of service in preparation, delivery, and documentation of the care provided to Jamari Malin excluding any time spent in the performance of separately billed services. This visit involved medical care services related to at least oneserious condition or complex condition requiring ongoing care. This chart was completed in part util [employer] Speech Voice Recognition Software. Grammatical errors, random word insertions, prounoun errors, and incomplete sentences are an occasional consequence of this system due to software limitations, ambient noise, and hardware issues. Any formal questions or concerns about the content, text, or information contained within the body of this dictation should be directly addressed to the provider for clarification. documented in this encounter Nursing Notes * Mathew Crowell LPN - 01/09/2024 10:28 AM EDT Patient identified by full name and date of Chief Complaint Patient presents with Emergency Department Follow-Up [facility] ED 12/15/23- hyponatremia and confusion. 6 1/2 month follow up. Shakiness occurs everyday. Dizziness when standing still intermittently but not as bad as prior with medication reduction. SOB ongoing but no worse then prior. Denies chest pain, edema and palpitations. Examination Room: 3 Name: Jamari Malin Date of : (1965). Reason for Visit: ED follow up Interim Hospitalization(s): [facility] ED 12/15/23 Problems/Concerns: See chief complaint Chest Pain/SOB: See chief complaint [facility] Discussed: Not applicable [employer] is a way you can talk to your provider online through e-mail. Would you like to sign up? I can activate it for you? ALREADY ACTIVE Patient was instructed to not get up on the exam table until directed and assisted by their provider; patient is to remain seated in the chair/ wheelchair/ exam table for fall prevention and safety reasons. Patient is aware to have assistance to step down off exam table with personnel. Patient voiced full comprehension of instructions. documented in this encounter Plan of Treatment Upcoming Encounters Date Type Department Care Team (Latest Contact Info) Description 01/14/2024 12:30 PM EDT Telemedicine Psychiatry, [address] [place] [address] Mao Santos MD [address] [place] [facility] [place] [address] 03/18/2024 11:00 AM EST Office Visit [facility] [address] [place] [address] Yasemin Newsome PA-C [address] [place] [facility] [place] [address] 03/20/2024 2:00 PM EST Office Visit [facility] [address] [place] [phone] Francesca Ford CRNP [address] [place] [address] 04/08/2024 8:46 AM EST Hospital Encounter [facility] [address] [facility] [place] [phone] Hiram Latham MD [address] [address] 04/08/2024 8:46 AM EST - 04/08/2024 9:24 AM EST Surgery [facility], [facility] [address] [facility] [place] [phone] Hiram Latham MD [address] [place] [id number] RIGHT EXTRACAPSULAR CATARACT REMOVAL WITH INTRAOCULAR LENS 04/14/2024 8:00 AM EST Office Visit Orthopaedics [facility] [address] [place] [address] Mark García, [address] [place] [address] 04/15/2024 10:17 AM EST Hospital Encounter OR [facility], Operating Room [facility] [address] [place] [phone] Hiram Latham MD [address] [place] [address] 04/15/2024 10:17 AM EST - 04/15/2024 10:55 AM EST Surgery OR [facility], Operating Room [facility] [address] [place] [phone] Hiram Latham MD [address] [place] [address] LEFT EXTRACAPSULAR CATARACT REMOVAL WITH INTRAOCULAR LENS 04/21/2024 8:00 AM EST Office Visit Orthopaedics [facility] [address] [place] [address] Mark García, DO [address] [place] [address] 04/28/2024 8:00 AM EST Office Visit Orthopaedics [facility] [address] [place] [address] Mark García, DO [address] [place] [address] 07/18/2024 11:00 AM EDT Office Visit Cardiology, [facility] [address] [place] [address] Darian Welch PA-C [address] [place] [address] 09/01/2024 7:40 AM EDT Office Visit Nephrology, [address] [place] [address] Radha Sawyer MD [address] [place] [address] 09/04/2024 1:00 PM EDT Office Visit M[facility] [address] [place] [phone] Yasemin Newsome PA-C [address] [place] [address] Scheduled Orders Name Type Priority Associated Diagnoses Orde r Schedule BASIC METABOLIC PANEL Lab Routine Hyponatremia Hyperkalemia Expected: 01/16/2024, Expires: 01/08/2025 Scheduled Procedures Name Priority Associated Diagnoses Date/Ti [...] as of this encounter Visit Diagnoses Diagnosis Hyponatremia- Primary Hyposmolality and/or hyponatremia HTN, goal below 140/90 Unspecified essential hypertension Hyperkalemia Hyperpotassemia Combined forms of age-related cataract of right eye Other and combined forms of senile cataract Combined forms of age-related cataract of left eye Other and combined forms of senile cataract documented in this encounter Care Teams Natural Gas Basis Trader Relationship Specialty Start Date End Date Yasemin Newsome PA-C [address] [facility] [place] [address] PCP - General Physician Lawn Mower 06/11/20 documented as of this encounter"
--- OUTSIDE RECORDS SUMMARY | 2024-01-18 23:39 | External Medical Summary | Summary of Care ---
Author Name Unknown Organization [facility] Address [address] [facility] [place] [address] Phone [phone] Care Team Providers Care Journeyman Tool And Die Maker Name Role Phone Yasemin Newsome PA-C Primary Care Provider [phone] Reason for Visit * Reason Onset Date Comments Test Results 01/15/2024 Encounter Details Date Type Department Care Team (Late st Contact Info) Description 01/15/2024 Telephone Cardiology, [facility] [address] [place] [phone] Darian Welch PA-C [address] [place] [address] Test Results Allergies Active Allergy Reactions Criticality Noted Date Comments Bupropion High 01/22/2020 Other reaction(s): SKIN IRRITATION Chlorthalidone Other (Please comment) Medium 3 hyponatremia documented as of this encounter (statuses as of 01/16/2024) Medications Medication Sig Dispensed Refills Start Date [...] 08/17/2023 Active Furosemide 20 MG Oral Tablet (Lasix)Indications:Ch [...] morning. 01/09/2024 Active Lisinopril 40 MG Oral TabletIndications:HTN , goal below 140/90 TAKE 1/2 (ONE-HALF) TABLET BY MOUTH ONCE DAILY IN THE MORNING 15 Tablet 01/14/2024 Active [place] Carbonate 150 MG Oral Capsule (Eskalith) Take 1 Capsule by mouth every night at bedtime. Total of 450mg nightly 30 Capsule 2 01/15/2024 Active [place] Carbonate 300 MG Oral Tablet (Eskalith) Take 1 Tablet by mouth every night at bedtime. 30 Tablet 2 01/15/2024 Active documented as of this encounter (statuses as of 01/16/2024) Active Problems Problem Noted Date Diagnosed Date Dyspnea and respiratory abnormalities 11/15/2022 Abnormal nuclear stress test 07/27/2022 Coronary artery disease invo lving sokaogon coronary artery of sokaogon heart with angina pectoris 07/27/2022 Prediabetes 07/10/2022 [...] as of this encounter (statuses as of 01/16/2024) Resolved Problems Problem Noted Date Diagnosed Date Resolved Date Genetic Sleep Disorder Resea [facility] Other*[id number] 05/30/2011 12/01/2015 Acute bronchitis, complicated 08/27/2009 06/08/2017 Pneumonia due to organism 08/27/2009 Overview: ICD-10 update of inactive term ADVANCE DIRECTIVE INFORMATION 01/25/2005 06/08/2017 Overview: No, Advance Directive brochure offered , patient declined. documented as of this encounter (statuses as of 01/16/2024) Immunizations Name Administration Dates Next Due HEP [...] encounter Miscellaneous Notes * Telephone Encounter - Cyndi Campos, YVES - 01/15/2024 3:06 PM EDT ----- Message from Darian Welch sent at 01/14/2024 5:09 PM EDT ----- Decrease spironolactone dosing from 75 mg/day to 50 mg/day Check a follow-up basic metabolic panel in 10 to 14 days. documented in this encounter Plan of Treatment Upcoming Encounters Date Type Department Care Team (Latest Contact Info) Description 03/18/2024 11:00 AM EST [facility] [address] [facility] [phone] Yasemin Newsome PA-C [address] [facility] [place] [address] 03/20/2024 2:00 PM EST Office Visit Sleep Disorders Ctr [facility] [address] [place] [phone] Francesca Ford CRNP [address] [place] [address] 04/08/2024 10:34 AM EST Hospital Encounter OR [facility], Operating Room [facility] [address] [place] [phone] Hiram Latham MD [address] [place] [address] 04/08/2024 10:34 AM EST - 04/08/2024 11:12 AM EST Surgery OR [facility], Operating Room [facility] [address] [place] [phone] Hiram Latham MD [address] [place] [address] RIGHT EXTRACAPSULAR CATARACT REMOVAL WITH INTRAOCULAR LENS 04/14/2024 8:00 AM EST Office Visit Orthopaedics [facility] [address] [place] [address] Mark García, DO [address] [place] [address] 04/15/2024 3:12 PM EST Hospital Encounter OR [facility], Operating Room [facility] [address] [place] [address] Hiram Latham MD [address] [place] [address] 04/15/2024 3:12 PM EST - 04/15/2024 3:50 PM EST Surgery OR [facility], Operating Room [facility] [address] [place] [address] Hiram Latham MD [address] [place] [address] LEFT EXTRACAPSULAR CATARACT REMOVAL WITH INTRAOCULAR LENS 04/21/2024 8:00 AM EST Office Visit Orthopaedics [facility] [address] [place] [address] Mark García, DO [address] [place], [place] [address] 04/28/2024 8:00 AM EST Office Visit Orthopaedics [facility] [address] [place] [address] Mark García, DO [address] [place], [place] [address] 07/18/2024 11:00 AM EDT Office Visit Cardiology, [facility] [address] [place] [address] Darian Welch PA-Amy [address] [place] [address] 09/01/2024 7:40 AM EDT Office Visit Nephrology, [facility] D[facility] [address] [facility] [place], [place] [address] Radha Sawyer MD [address] [facility] [place], [place] [address] 09/04/2024 1:00 PM EDT Office Visit [facility] [address] [place] [phone] Yasemin Newsome PA-C [address] [place] [address] Scheduled Orders Name Type Priority Associated Diagnoses Orde r Schedule BASIC METABOLIC PANEL Lab Routine HTN, goal below 140/90 Hyponatremia Expected: 01/25/2024 (Approximate), Expires: 01/14/2025 Scheduled Procedures Name Priority Associated Diagnoses Date/Ti me EXTRACAPSULAR CATARACT REMOVAL WITH INTRAOCULAR LENS Combined forms of age-related cataract of right eye 04/08/2024 10:34 AM EST EXTRACAPSULAR CATARACT REMOVAL WITH INTRAOCULAR LENS Combined forms of age-related cataract of left eye 04/15/2024 3:12 PM EST COLONOSCOPY FLEXIBLE PROXIMAL DIAGNOSTIC Recall Colon [...] encounter Visit Diagnoses Diagnosis HTN, goal below 140/90- Primary Unspecified essential hypertension Hyponatremia Hyposmolality and/or hyponatremia Combined forms of age-related cataract of right eye Other and combined forms of senile cataract Combined forms of age-related cataract of left eye Other and combined forms of senile cataract documented in this encounter Care Teams Journeyman Tool And Die Maker Relationship Specialty Start Date End Date Yasemin Newsome PA-C [address] [facility] [place] [address] PCP - General Physician Teacher Private 06/11/20 documented as of this encounter
--- OUTSIDE RECORDS SUMMARY | 2024-01-18 23:40 | External Medical Summary ---
Author Name Unknown Address Unknown Organization [id number]:[facility] - [address] [place] [address] Laboratory Report Ordering Provider Test Date Status EARL ABRAHAM 12/17/2023 13:47:55 Final Observation Date Value Abnormality Reference (Units ) Status Albumin 12/17/2023 13:47:55 4.6 3.8-5.0 (g/dL) Final AST (Aspartate aminotransferase) 12/17/2023 13:47:55 59 Above high normal 10-50 (U/L) Final Alk Phos 12/17/2023 13:47:55 46 35-130 (U/L) Final ALT (Alanine aminotransferase) 12/17/2023 13:47:55 88 Above high normal 10-50 (U/L) Final Bilirubin, Total 12/17/2023 13:47:55 0.4 <=1.2 (mg/dL) Final Bilirubin, Direct 12/17/2023 13:47:55 <0.2 0.0-0.3 (mg/dL) Final Protein 12/17/2023 13:47:55 6.7 6.0-8.3 (g/dL) Final Performing Location [facility] [address] - [address] [place] [address]
--- OUTSIDE RECORDS SUMMARY | 2024-01-18 23:40 | External Medical Summary | Summary of Care ---
Author Name Unknown Organization [facility] Address [address] [facility] [place] [address] Phone [phone] Care Team Providers Care Road Mender Name Role Phone Yasemin Newsome PA-C Primary Care Provider [phone] Reason for Visit * Reason Onset Date Comments Test Results 12/17/2023 Encounter Details Date Type Department Care Team (Late st Contact Info) Description 12/17/2023 Telephone Cardiology, [facility] [address] [place] [phone] Darian Welch PA-C [address] [place] [address] Test Results Allergies Active Allergy Reactions Criticality Noted Date Comments Bupropion High 01/22/2020 Other reaction(s): SKIN IRRITATION Chlorthalidone Other (Please comment) Medium 3 hyponatremia documented as of this encounter (statuses as of 12/17/2023) Medications Medication Sig Dispensed Refills Start Date [...] THE MORNING 90 Capsule 1 08/17/2023 Active [place] Carbonate 300 MG Oral Capsule (Eskalith) Take [...] as of this encounter (statuses as of 12/17/2023) Active Problems Problem Noted Date Diagnosed Date Dyspnea and respiratory abnormalities 11/15/2022 Abnormal nuclear stress test 07/27/2022 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 documented as of this encounter (statuses as of 12/17/2023) Immunizations Name Administration Dates Next Due HEP A - Hepatitis A (Adult > 18 yrs) 08/02/2020, 02/02/2020 Hepatitis B, 20+ yrs 08/02/2020,03/04/2020,02/01 Seasonal Influenza, Split, I IV3, With Preserve, Inj 03/11/2007 TDAP (age 10 and older)(Boostrix) 03/11/2012 [...] encounter Miscellaneous Notes * Telephone Encounter - Mathew Crowell LPN - 12/17/2023 3:54 PM EDT Sent patient a [employer] message to make aware. ----- Message from Darian Welch sent at 12/17/2023 3:53 PM EDT ----- Liver tests have improved. Continue to hold rosuvastatin. Reduce alcohol intake. documented in this encounter Plan of Treatment Upcoming Encounters Date Type Department Care Team (Late st Contact Info) Description 03/13/2024 10:00 AM EST Office Visit [facility] [address] [facility], [place] [address] Yasemin Newsome PA-C [address] [facility], [place] [address] 03/20/2024 2:00 PM EST Office Visit Sleep Disorders Ctr [facility] [address] [place] [phone] Francesca Ford CRNP [address] [place] [address] 03/26/2024 8:30 AM EST Office Visit Cardiology, [facility] [address] [place] [address] Darian Welch PA-C [address] [place] [address] 04/14/2024 8:00 AM EST Office Visit Orthopaedics [facility] [address] [place] [address] Mark García, [address] [place] [address] 04/21/2024 8:00 AM EST Office Visit Orthopaedics [facility] [address] [place] [address] Mark García DO [address] [place] [address] 04/28/2024 8:00 AM EST Office Visit Orthopaedics [facility] [address] [place] [address] Mark García DO [address] [place] [address] 09/01/2024 7:40 AM EDT Office Visit Nephrology, [facility] [address] [facility] [place] [address] Radha Sawyer MD [address] [facility] [place] [address] 09/04/2024 1:00 PM EDT Office Visit [facility] [address] [place] [address] Yasemin Newsome PA-C [address] [place] [address] Scheduled Procedures Name Priority Associated Diagnoses Date/Ti me COLONOSCOPY FLEXIBLE PROXIMAL DIAGNOSTIC Recall Colon cancer screening Health Maintenance Due Date Last Done Comments HIV Screening 1978 Cologuard 2008 Fecal Occult Blood Test 2008 Sigmoidoscopy 2008 Zoster Vaccines (1 of 2) 2013 DTaP,Tdap,and Td Vaccines (2 - Td or Tdap) 03/11/2022 03/11/2012 COVID-19 Vaccine ( - season) 2022 HbA1c 07/01/2023 06/30/2022, 11/29, 05/21/2020, Additional history exists Influenza Vaccine (FLU shot) (#1) 2023 03/11/2007, 02/25/2002, 05/29/2000, Additional history exists GFR 12/16/2024 12/17/2023, 08/28, 12/04/2022, Additional history exists Colonoscopy 04/06/2025 04/06/2015, 04/06/2015 [...] filedocumented as of this encounter Care Teams Road Mender Relationship Specialty Start Date End Date Yasemin Newsome PA-C [address] [facility] [place] [address] PCP - General Physician Eyelet Punch Operator 06/11/20 documented as of this encounter
--- OUTSIDE RECORDS SUMMARY | 2024-01-18 23:40 | External Medical Summary ---
Author Name Unknown Address Unknown Organization K[facility] - [address] [facility] [place] [place] [address] Laboratory Report Ordering Provider Test Date Status WARREN ADAMS 12/17/2023 13:47:55 Final Observation Date Value Abnormality Reference (Units ) Status TSH 12/17/2023 13:47:55 6.82 Above high normal 0. 27-4.20 (uIU/mL) Final Performing Location [facility] - [address] [place] [address]
--- OUTSIDE RECORDS SUMMARY | 2024-01-18 23:40 | External Medical Summary ---
Author Name Unknown Address Unknown Organization K[facility] - [address] [place] [address] Laboratory Report Ordering Provider Test Date Status NIESHA ADAMSDASIA 12/17/2023 13:47:55 Final Observation Date Value Abnormality Reference (Units ) Status T4, Free 12/17/2023 13:47:55 1.0 0.9-1.7 (n g/dL) Final Performing Location [facility] - [address] [place] [address]
--- OUTSIDE RECORDS SUMMARY | 2024-01-18 23:40 | External Medical Summary ---
Author Name Unknown Address Unknown Organization [facility]0G:[facility] [address] [place] [address] Laboratory Report Ordering Provider Test Date Status WARREN ADAMS 12/21/2023 09:53:42 Final Observation Date Value Abnormality Reference (Units ) Status BUN 12/21/2023 09:53:42 21 Above high normal 6-20 (mg/dL) Final Creatinine 12/21/2023 09:53:42 1.1 0.6-1.2 (mg/dL) Final Glomerular filtration rate/1.73 sq M.predicted [Volume Rate/Area] in Serum, Plasma or Blood by Creatinine-based formula (CKD-EPI) 12/21/2023 09:53:42 77 >=60 (mL/min) Final eGFR is calculated based on the CKD-EPI 2020 equation. Sodium 12/21/2023 09:53:42 132 Below low normal 135 -146 (mmol/L) Final Potassium 12/21/2023 09:53:42 5.1 3.5-5.1 (m mol/L) Final Cl 12/21/2023 09:53:42 96 Below low normal 98- 107 (mmol/L) Final CO2 12/21/2023 09:53:42 22 22-32 (mmo l/L) Final Anion gap 12/21/2023 09:53:42 14 7-15 (mmol /L) Final Glucose 12/21/2023 09:53:42 146 Above high normal 70 -120 (mg/dL) Final Calcium 12/21/2023 09:53:42 10.6 Above high normal 8. 4-10.2 (mg/dL) Final Performing Location [facility] [place] [address]
--- OUTSIDE RECORDS SUMMARY | 2024-01-18 23:40 | External Medical Summary | Summary of Care ---
Author Name Unknown Organization [facility] Address [address] [facility] [place] [address] Phone [phone] Care Team Providers Care Crayon Sorting Machine Feeder Name Role Phone Yasemin Newsome PA-C Primary Care Provider [phone] Reason for Visit * Reason Comments Hospital Follow-Up Patient states that he is here for a ED due to disoriented and labs showed low sodium Encounter Details Date Type Department Care Team (Late st Contact Info) Description 12/17/2023 12:00 PM EDT Office Visit [facility] [address] [place] [address] Yasemin Newsome PA-C [address] [place] [address] HTN, goal below 140/90*; Hyponatremia; Hypomagnesemia; Shakiness; Encounter for long-term (current) use of medications; Elevated glucose Allergies Active Allergy Reactions Criticality Noted Date [...] THE MORNING 90 Capsule 1 08/17/2023 Active [place] Carbonate 300 MG Oral Capsule (Eskalith) Take [...] test 07/27/2022 Coronary artery disease invo lving [place] coronary artery of [place] heart with angina pectoris 07/27/2022 Prediabetes 07/10/2022 [...] Date Resolved Date Genetic Sleep Disorder Resea [facility] Other*[id number] 05/30/2011 12/01/2015 Acute bronchitis, complicated 08/27/2009 06/08/2017 [...] Tobacco: Never Pipe Smokeless Tobacco: Current Snuff Tobacco Cessation:Ready to Q uit: Not Asked; Counseling Given: Not Answered Comments:1.5 can per day at least, sometimes [...] Sign Reading Time Taken Comments Blood Pressure 130/64 12/17/2023 11:44 AM EDT Pulse 63 12/17/2023 11:44 AM EDT Temperature 36.4 C (97.5 F) 12/17/2023 1 1:44 AM EDT Respiratory Rate 16 12/17/2023 11:4 4 AM EDT Oxygen Saturation 95% 12/17/2023 11: 44 AM EDT Inhaled Oxygen Concentration - - Weight 148.9 kg (328 lb 3.2 oz) 024 11:44 AM EDT Height 188 cm (6' 2") 12/17/2023 11:44 AM EDT Body Mass Index 42.14 12/17/2023 11:44 AM EDT documented in this encounter Progress Notes * Yasemin Newsome PA-C - 12/17/2023 11:48 AM EDT Images from the original note were not included. History of Present Illness Jamari Malin is a 58 year old male that presents for Hospital Follow-Up (Patient states that he ishere for a ED due to disoriented and labs showed low sodium/) Here for er f/u Was to [facility] 12/15/2023 Presented on stroke alert He was confused - started at 6 pm that day Something just felt off Went to er No neuro deficits Leukopenia is stable Ct head and neck was normal Hyponatremia was 125 given 1 L NSS and felt much better. Cardiac monitoring was normal. Past Medical History: Diagnosis Date Alcohol abuse, unspecified HTN, goal to be determined Other specified forms of hearing loss right Sleep apnea, obstructive Allopurinol 300 MG Oral Tablet (Zyloprim) EQ All Day Allergy Relief 10 MG Oral Tablet (Loratadine) Furosemide 20 MG Oral Tablet (Lasix) Lisinopril 40 MG Oral Tablet [place] Carbonate 300 MG Oral Capsule (Eskalith) Omeprazole 20 MG Oral Capsule Delayed Release (PriLOSEC) Spironolactone 50 MG Oral Tablet (Aldactone) Isosorbide Mononitrate ER 60 MG Oral Tablet Extended Release 24 Hour (Imdur) Terazosin HCl 5 MG Oral Capsule (Hytrin) Magnesium Oxide -Mg Supplement 400 (240 Mg) MG Oral Tablet (Mag-Ox) Zolpidem Tartrate 10 MG Oral Tablet (Ambien) cloNIDine HCl 0.3 MG Oral Tablet Metoprolol Succinate ER 25 MG Oral Tablet Extended Release 24 Hour (toPROL XL) Escitalopram Oxalate 10 MG Oral Tablet (Lexapro) Aspirin 81 MG Oral Tablet Delayed Release Pulse Oximeter CPAP Rosuvastatin Calcium 5 MG Oral Tablet (Crestor) Physical Exam Vitals: 12/17/23 1144 Temp: 36.4 C (97.5 F) Pulse: 63 Resp: 16 SpO2: 95% BP: 130/64 BMI: 42.12 BP Readings from Last 3 Encounters: 12/17/23 130/64 09/11/23 130/82 09/10/23 138/78 Wt Readings from Last 3 Encounters: 12/17/23 (!) 148.9 kg (328 lb 3.2 oz) 09/11/23 (!) 148.7 kg (327 lb 12.8 oz) 09/10/23 (!) 148.8 kg (328 lb) BMI Readings from Last 3 Encounters: 12/17/23 42.14 kg/m 09/11/23 42.09 kg/m 09/10/23 42.11 kg/m Ht Readings from Last 3 Encounters: 12/17/23 1.88 m (6' 2") 09/11/23 1.88 m (6' 2") 04/17/23 1.88 m (6' 2") General: alert, healthy, and no distress, non-parkinsonian tremor of hands Head: Normocephalic, No masses, lesions, tenderness or abnormalities Eye Exam: PERRLA, extraocular movements intact, conjunctiva are pink and non- injected, sclera clear Heart: regular rate & rhythm, no gallops, S-1 normal, and S-2 normal Lungs: chest symmetric with normal AP diameter, no chest deformities noted, no chest wall tenderness, lungs clear to auscultation Extremities: less than 2 second capillary refill, no joint deformities, effusion, or inflammation Skin: skin color, texture, turgor are normal, no rashes or significant lesions I have reviewed the following results: er report [facility] 12/15/2023 , lab work, etc Assessment and Plan HTN, goal below 140/90 (Primary) - BASIC METABOLIC PANEL; Standing Hyponatremia - BASIC METABOLIC PANEL; Standing Hypomagnesemia - BASIC METABOLIC PANEL; Standing - MAGNESIUM; Standing Shakiness - VITAMIN B3; Future; Expected date: 12/17/2023 - VITAMIN B1 (THIAMINE), BLOOD, LC/MS/MS; Future; Expected date: 12/17/2023 - LYME DISEASE ANTIBODY SCREEN WITH REFLEX TO CONFIRMATION; Future; Expected date: 12/17/2023 Encounter for long-term (current) use of medications - VITAMIN B3; Future; Expected date: 12/17/2023 - VITAMIN B1 (THIAMINE), BLOOD, LC/MS/MS; Future; Expected date: 12/17/2023 - HEMOGLOBIN A1C; Future; Expected date: 12/17/2023 - TSH; Future; Expected date: 12/17/2023 - T4, FREE; Future; Expected date: 12/17/2023 - T3, FREE; Future; Expected date: 12/17/2023 Elevated glucose - HEMOGLOBIN A1C; Future; Expected date: 12/17/2023 Follow Up: Return for pre-op in 2-3 weeks wt me. | For: pre-op in 2-3 weeks wt me The patient is asked to make an attempt to improve diet and exercise patterns to aid in medical management of this problem. Talk to Darian Welch about fluid pill - pt to do so Serial eleactrolyte labs The patient is asked to make an attempt to improve diet and exercise patterns to aid in medical management of this problem. Look for sources of tremor Wrap-Up Time: I spent a total of 40-54 minutes (exact time 49 mins) on the date of service in preparation, delivery, and documentation of the care provided to Jamari Malin excluding any time spent in the performance of separately billed services. Yasemin Newsome PA-C 12/17/2023 12:19 PM documented in this encounter Nursing Notes * Patricia Glaser LPN - 12/17/2023 11:44 AM EDT Jamari Malin is a 58 year old male who presents today for Chief Complaint Patient presents with Hospital Follow-Up Patient states that he is here for a ED due to disoriented and labs showed low sodium documented in this encounter Plan of Treatment Upcoming Encounters Date Type Department Care Team (Late st Contact Info) Description 03/13/2024 10:00 AM EST Office Visit Family [facility] [place] [address] [facility], [place] [phone] Yasemin Newsome PA-C [address] [place] [facility] [place] [address] 03/20/2024 2:00 PM EST Office Visit Sleep Disorders Ctr [facility] [address] [place] [address] Francesca Ford CRNP [address] [place] [address] 03/26/2024 8:30 AM EST Office Visit Cardiology, [facility] [address] [place] [address] Darian Welch PA-C [address] [place] [address] 04/14/2024 8:00 AM EST Office Visit Orthopaedics [facility] [address] [place] [address] Mark García, DO [address] [place] [address] 04/21/2024 8:00 AM EST Office Visit Orthopaedics [facility] [address] [place] [address] Mark García, DO [address] [place] [address] 04/28/2024 8:00 AM EST Office Visit Orthopaedics [facility] [address] [place] [address] Mark García, DO [address] [place] [address] 09/01/2024 7:40 AM EDT Office Visit Nephrology, Merissa Dobbins [address] [facility] [address] [place], [place] [address] Radha Sawyer MD [address] [facility] [place], [place] [address] 09/04/2024 1:00 PM EDT Office Visit [facility] [address] [place] [phone] Yasemin Newsome PA-C [address] [place], [place] [phone] Scheduled Orders Name Type Priority Associated Diagnoses Orde r Schedule BASIC METABOLIC PANEL Lab Routine HTN, goal below 140/90 Hyponatremia Hypomagnesemia 52 Occurrences starting 12/17/2023 until 12/16/2024 MAGNESIUM Lab Routine Hypomagnesemia 52 Occurrences starting 12/17/2023 until 12/16/2024 VITAMIN B3 Lab Routine Shakiness Encounter for long-term (current) use of medications Expected: 12/17/2023, Expires: 12/16/2024 VITAMIN B1 (THIAMINE), BLOOD, LC/MS/MS Lab Routine Shakiness Encounter for long-term (current) use of medications Expected: 12/17/2023, Expires: 12/16/2024 HEMOGLOBIN A1C Lab Routine Encounter for long-term (current) use of medications Elevated glucose Expected: 12/17/2023 (Approximate), Expires: 12/16/2024 TSH Lab Routine Encounter for long-term (current) use of medications Expected: 12/17/2023 (Approximate), Expires: 12/16/2024 T4, FREE Lab Routine Encounter for long-term (current) use of medications Expected: 12/17/2023 (Approximate), Expires: 12/16/2024 T3, FREE Lab Routine Encounter for long-term (current) use of medications Expected: 12/17/2023 (Approximate), Expires: 12/16/2024 LYME DISEASE ANTIBODY SCREEN WITH REFLEX TO CONFIRMATION Lab Routine Shakiness Expected: 12/17/2023 (Approximate), Expires: 12/16/2024 Scheduled Procedures Name Priority Associated Diagnoses Date/Ti me COLONOSCOPY FLEXIBLE PROXIMAL DIAGNOSTIC Recall Colon cancer screening Health Maintenance Due Date Last Done Comments HIV Screening 1978 Cologuard 2008 Fecal Occult Blood Test 2008 Sigmoidoscopy 2008 Zoster Vaccines (1 of 2) 2013 DTaP,Tdap,and Td Vaccines (2 - Td or Tdap) 03/11/2022 03/11/2012 COVID-19 Vaccine (1 - season) 2022 HbA1c 07/01/2023 06/30/2022, 11/29, 05/21/2020, Additional history exists Influenza Vaccine (FLU shot) (#1) 2023 03/11/2007, 02/25/2002, 05/29/2000, Additional history exists GFR 09/09/2024 09/10/2023, 0810/2022, 11/07/2022, Additional history exists Colonoscopy 04/06/2025 04/06/2015, 04/06/2015 [...] and/or hyponatremia Hypomagnesemia Disorders of magnesium metabolism Shakiness Abnormal involuntary movements Encounter for long-term (current) use of medications Encounter for long-term (current) use of other medications Elevated glucose Other abnormal glucose documented in this encounter Care Teams Crayon Sorting Machine Feeder Relationship Specialty Start Date End Date Yasemin Newsome PA-C [address] [place] [address] PCP - General Physician Manager Track 06/11/20 documented as of this encounter
--- OUTSIDE RECORDS SUMMARY | 2024-01-18 23:40 | External Medical Summary ---
Author Name Unknown Address Unknown Organization [id number]:[facility] - [address] [place] [address] Laboratory Report Ordering Provider Test Date Status WARREN ADAMS 12/19/2023 10:26:06 Final Observation Date Value Abnormality Reference (Units ) Status Magnesium 12/19/2023 10:26:06 1.6 1.5-2.6 (m g/dL) Final Performing Location [facility] - [address] [place] [address]
--- OUTSIDE RECORDS SUMMARY | 2024-01-18 23:40 | External Medical Summary ---
Author Name Unknown Address Unknown Organization [id number]:[facility] [place] [address] [place] [address] Laboratory Report Ordering Provider Test Date Status WARREN ADAMS 12/17/2023 13:47:55 Final Observation Date Value Abnormality Reference (Units ) Status T3, Free 12/17/2023 13:47:55 2.9 2.5-4.3 (p g/mL) Final Performing Location [facility] - [address] [place] [address]
--- OUTSIDE RECORDS SUMMARY | 2024-01-18 23:40 | External Medical Summary ---
Author Name Unknown Address Unknown Organization [id number]:LAB[facility]ATORY [facility] [address] [place] [address] Laboratory Report Ordering Provider Test Date Status WARREN ADAMS 12/19/2023 10:26:06 Final Observation Date Value Abnormality Reference (Units ) Status BUN 12/19/2023 10:26:06 10 6-20 (mg/dL) Final Creatinine 12/19/2023 10:26:06 1.1 0.6-1.2 (mg/dL) Final Glomerular filtration rate/1.73 sq M.predicted [Volume Rate/Area] in Serum, Plasma or Blood by Creatinine-based formula (CKD-EPI) 12/19/2023 10:26:06 80 >=60 (mL/min) Final eGFR is calculated based on the CKD-EPI 2020 equation. Sodium 12/19/2023 10:26:06 132 Below low normal 135 -146 (mmol/L) Final Potassium 12/19/2023 10:26:06 5.5 Above high normal 3. 5-5.1 (mmol/L) Final Cl 12/19/2023 10:26:06 98 98-107 (mm ol/L) Final CO2 12/19/2023 10:26:06 21 Below low normal 22- 32 (mmol/L) Final Anion gap 12/19/2023 10:26:06 13 7-15 (mmol /L) Final Glucose 12/19/2023 10:26:06 136 Above high normal 70 -120 (mg/dL) Final Calcium 12/19/2023 10:26:06 10.3 Above high normal 8. 4-10.2 (mg/dL) Final Performing Location [facility] [place] [address]
--- OUTSIDE RECORDS SUMMARY | 2024-01-18 23:40 | External Medical Summary | Summary of Care ---
Author Name Unknown Organization [facility] Address [address] [facility] [place] [address] Phone [phone] Care Team Providers Care Electric Deicer Assembler Name Role Phone Yasemin Newsome PA-C Primary Care Provider [phone] Reason for Visit * Reason Comments Outpatient Testing Encounter Details Date Type Department Care Team (Late st Contact Info) Description 12/17/2023 1:40 PM EDT Laboratory Laboratory, [facility] [place] [address] [facility] [address] [facility] [place] [address] Elevated liver enzymes; HTN, goal below 140/90; Hyponatremia; Hypomagnesemia; Shakiness; Encounter for long-term (current) [...] THE MORNING 90 Capsule 1 08/17/2023 Active [place] Carbonate 300 MG Oral Capsule (Eskalith) Take [...] test 07/27/2022 Coronary artery disease invo lving [place] coronary artery of [place] heart with angina pectoris 07/27/2022 Prediabetes 07/10/2022 [...] Resolved Date Genetic Sleep Disorder Resea [facility] Other*[id number] 05/30/2011 12/01/2015 Acute bronchitis, complicated 08/27/2009 06/08/2017 [...] Description 03/13/2024 10:00 AM EST Office Visit [facility] [address] [place] [address] Yasemin Newsome PA-C [address] [place] [address] 03/20/2024 2:00 PM EST Office Visit Sleep Disorders Ctr [facility] [address] [place] [address] Francesca Ford CRNP [address] [place] [address] 03/26/2024 8:30 AM EST Office Visit Cardiology, [facility] [address] [facility] [place] [address] Darian Welch PA-C [address] [place] [address] 04/14/2024 8:00 AM EST Office Visit Orthopaedics [facility] [address] [facility] [place] [address] Mark García, DO [address] [facility] [place] [address] 04/21/2024 8:00 AM EST Office Visit Orthopaedics [facility] [address] [facility] [place] [address] Mark García, DO [address] [place] [address] 04/28/2024 8:00 AM EST Office Visit Orthopaedics [facility] [address] [facility] [place] [address] Mark García, DO [address] [place] [address] 09/01/2024 7:40 AM EDT Office Visit Nephrology, [address] [place] [address] Radha Rock MD [address] [facility] [place] [address] 09/04/2024 1:00 PM EDT Office Visit [facility] [address] [place] [phone] Yasemin Newsome PA-C [address] [place], [place] [phone] Pending Results Name Type Priority Associated Diagnoses Date /Time HEPATIC FUNCTION PANEL Lab Routine Elevated liver enzymes 12/17/2023 1:47 PM EDT BASIC METABOLIC PANEL Lab Routine HTN, goal below 140/90 Hyponatremia Hypomagnesemia 12/17/2023 1:47 PM EDT MAGNESIUM Lab Routine Hypomagnesemia 12/17/2023 1:47 PM EDT VITAMIN B3 Lab Routine Shakiness Encounter for long-term (current) use of medications 12/17/2023 1:47 PM EDT VITAMIN B1 (THIAMINE), BLOOD, LC/MS/MS Lab Routine Shakiness Encounter for long-term (current) use of medications 12/17/2023 1:47 PM EDT HEMOGLOBIN A1C Lab Routine Encounter for long-term (current) use of medications Elevated glucose 12/17/2023 1:47 PM EDT TSH Lab Routine Encounter for long-term (current) use of medications 12/17/2023 1:47 PM EDT T4, FREE Lab Routine Encounter for long-term (current) use of medications 12/17/2023 1:47 PM EDT T3, FREE Lab Routine Encounter for long-term (current) use of medications 12/17/2023 1:47 PM EDT LYME DISEASE ANTIBODY SCREEN WITH REFLEX TO CONFIRMATION Lab Routine Shakiness 12/17/2023 1:47 PM EDT LYME DISEASE ANTIBODY SCREEN Lab Routine Shakiness 12/17/2023 1:47 PM EDT Scheduled Procedures Name Priority Associated Diagnoses Date/Ti me COLONOSCOPY FLEXIBLE PROXIMAL DIAGNOSTIC Recall Colon cancer screening Health Maintenance Due Date Last Done Comments HIV Screening 1978 Cologuard 2008 Fecal Occult Blood Test 2008 Sigmoidoscopy 2008 Zoster Vaccines (1 of 2) 2013 DTaP,Tdap,and Td Vaccines (2 - Td or Tdap) 03/11/2022 03/11/2012 COVID-19 Vaccine (1 - season) 2022 HbA1c 07/01/2023 06/30/2022, 0809/2021, 05/21/2020, Additional history exists Influenza Vaccine (FLU [...] as of this encounter Visit Diagnoses Diagnosis Elevated liver enzymes Nonspecific elevation of levels of transaminase or lactic acid dehydrogenase (LDH) HTN, goal below 140/90 Unspecified essential hypertension Hyponatremia Hyposmolality and/or hyponatremia Hypomagnesemia Disorders of magnesium metabolism Shakiness Abnormal involuntary movements Encounter for long-term (current) use of medications Encounter for long-term (current) use of other medications Elevated glucose Other abnormal glucose documented in this encounter Care Teams Electric Deicer Assembler Relationship Specialty Start Date End Date Yasemin Newsome PA-C [address] [facility] [place] [phone] PCP - General Physician Woodworking Belt Sander 2/12/21 documented as of this encounter
--- OUTSIDE RECORDS SUMMARY | 2024-01-18 23:40 | External Medical Summary ---
Author Name Unknown Address Unknown Organization K01:[facility] [place] [address] [place] [address] Laboratory Report Ordering Provider Test Date Status WARREN ADAMS 12/17/2023 13:47:55 Final Observation Date Value Abnormality Reference (Units ) Status Borrelia burgdorferi IgG and IgM [Interpretation] in Serum by Immunoassay 12/17/2023 13:47:55 Negative Negative Final Performing Location [facility] [place] [address] [place] [address]
--- OUTSIDE RECORDS SUMMARY | 2024-01-18 23:40 | External Medical Summary | Summary of Care ---
Author Name Unknown Organization [facility] Address [address] [facility] [place] [address] Phone [phone] Care Team Providers Care Parole Supervisor Name Role Phone Yasemin Newsome PA-C Primary Care Provider [phone] Reason for Visit * Reason Comments Outpatient Testing Encounter Details Date Type Department Care Team (Late st Contact Info) Description 12/21/2023 9:50 AM EDT Laboratory Laboratory, [facility] [place] [address] [facility] [address] [facility] [place] [address] Hyponatremia; HTN, goal below 140/90; Hypomagnesemia Allergies Active Allergy Reactions Criticality Noted Date Comments Bupropion High 01/22/2020 Other reaction(s): SKIN IRRITATION Chlorthalidone Other (Please comment) Medium 3 hyponatremia documented as of this encounter (statuses as of 12/21/2023) Medications Medication Sig Dispensed Refills Start Date [...] THE MORNING 90 Capsule 1 08/17/2023 Active [place] Carbonate 300 MG Oral Capsule (Eskalith) Take [...] as of this encounter (statuses as of 12/21/2023) Active Problems Problem Noted Date Diagnosed Date Dyspnea and respiratory abnormalities 11/15/2022 Abnormal nuclear stress test 07/27/2022 Coronary artery disease invo lving [place] coronary artery of [place] heart with angina pectoris 07/27/2022 Prediabetes 07/10/2022 [...] as of this encounter (statuses as of 12/21/2023) Resolved Problems Problem Noted Date Diagnosed Date Resolved Date Genetic Sleep Disorder Resea [facility] Other*[id number] 05/30/2011 12/01/2015 Acute bronchitis, complicated 08/27/2009 06/08/2017 Pneumonia due to organism 08/27/2009 Overview: ICD-10 update of inactive term ADVANCE DIRECTIVE INFORMATION 01/25/2005 06/08/2017 Overview: No, Advance Directive brochure offered , patient declined. documented as of this encounter (statuses as of 12/21/2023) Immunizations Name Administration Dates Next Due HEP [...] Description 03/13/2024 10:00 AM EST Office Visit [facility] [address] [facility] [place] [phone] Yasemin Newsome PA-C [address] [facility] [phone] 03/20/2024 2:00 PM EST Office Visit Sleep Disorders Ctr [facility] [address] [place] [phone] Francesca Ford CRNP [address] [place] [address] 03/26/2024 8:30 AM EST Office Visit Cardiology, [facility] [address] [place] [address] Darian Welch PA-C [address] [place] [address] 04/14/2024 8:00 AM EST Office Visit Orthopa[facility] [address] [facility] [address] Mark García, DO [address] [place] [address] 04/21/2024 8:00 AM EST Office Visit [facility] [address] [facility] [address] Mark García, DO [address] [place] [address] 04/28/2024 8:00 AM EST Office Visit [facility] [address] [facility] [address] Mark García, DO [address] [place] [address] 09/01/2024 7:40 AM EDT Office Visit Nephrology, Merissa Dobbins [address] [place] [address] Radha Sawyer MD [address] [place] [address] 09/04/2024 1:00 PM EDT Office Visit [facility] [place] [address] [place] [address] Yasemin Newsome PA-C [address] [place] [address] Pending Results Name Type Priority Associated Diagnoses Date /Time BASIC METABOLIC PANEL Lab Routine HTN, goal below 140/90 Hyponatremia Hypomagnesemia 12/21/2023 9:53 AM EDT MAGNESIUM Lab Routine Hypomagnesemia 12/21/2023 9:53 AM EDT Scheduled Procedures Name Priority Associated Diagnoses Date/Ti me COLONOSCOPY FLEXIBLE PROXIMAL DIAGNOSTIC Recall Colon cancer screening Health Maintenance Due Date Last Done Comments HIV Screening 1978 Cologuard 2008 Fecal Occult Blood Test 2008 Sigmoidoscopy 2008 Zoster Vaccines (1 of 2) 2013 DTaP,Tdap,and Td Vaccines (2 - Td or Tdap) 03/11/2022 03/11/2012 COVID-19 Vaccine ( - season) 2022 Influenza Vaccine (FLU shot) (#1) 2023 03/11/2007, 02/25/2002, 05/29/2000, Additional history exists HbA1c 12/16/2024 12/17/2023, 03/0 06/2022, 12/23/2021, Additional history exists GFR 12/18/2024 12/19/2023, 11/28, 09/10/2023, Additional history exists Colonoscopy 04/06/2025 04/06/2015, 04/06/2015 [...] as of this encounter Visit Diagnoses Diagnosis Hyponatremia Hyposmolality and/or hyponatremia HTN, goal below 140/90 Unspecified essential hypertension Hypomagnesemia Disorders of magnesium metabolism documented in this encounter Care Teams Parole Supervisor Relationship Specialty Start Date End Date Yasemin Newsome PA-C [address] [facility] [place] [address] PCP - General Physician Clinical Data Research 06/11/20 documented as of this encounter
--- OUTSIDE RECORDS SUMMARY | 2024-01-18 23:40 | External Medical Summary ---
Author Name Unknown Address Unknown Organization : Laboratory Report Ordering Provider Test Date Status WARREN ADAMS 12/17/2023 13:47:55 Final Observation Date Value Abnormality Reference (Units ) Status Vitamin A, level 12/17/2023 13:47:55 <20 (ng/mL) Final Due to the large variability in the metabolism of
nicotinic acid, the dosing preparation used (immediate-
release vs. extended release), and the mg doses used
the serum concentrations may range from less than
20 ng/mL to about 30,000 ng/mL.
After oral administration of an immediate-release
tablet, peak plasma concentrations occur in 4 to 5
hours. The plasma half-life of nicotinic acid is about
one hour. In one study, fasting plasma concentrations
were reported to be less than 20 ng/mL. In another
study, it was reported that the administration of a
single 1000 mg extended-release tablet resulted in mean
nicotinic acid concentrations of less than 50 ng/mL.
This test was developed and its analytical
performance characteristics have been determined
by [facility], [place], [place].
It has not been cleared or approved by the FDA. This
assay has been validated pursuant to the CLIA
regulations and is used for clinical purposes. Vitamin A, level 12/17/2023 13:47:55 <20 (ng/mL) Final Nicotinamide is a metabolite of nicotinic acid. Due to
the large variability in the metabolism of nicotinic
acid, plasma concentrations of this metabolite are
variable. In one study, fasting plasma concentrations
were reported to be approximately 40 ng/mL. In another
study it was reported that the administration of a
single 1000 mg of extended-release tablet of nicotinic
acid resulted in a mean peak nicotinamide concentration
of 400 ng/mL between 5 and 10 hours post dose,
decreasing to about 100 ng/mL by 16 hours post dose.
This test was developed and its analytical
performance characteristics have been determined
by [facility], [place], [place].
It has not been cleared or approved by the FDA. This
assay has been validated pursuant to the CLIA
regulations and is used for clinical purposes.

Test Performed at:
[facility]
[address] [facility]
[place] [address]
Patrick Andrea M.D., Ph.D.,Director of Laboratories Performing Location
--- OUTSIDE RECORDS SUMMARY | 2024-01-18 23:40 | External Medical Summary | Summary of Care ---
Author Name Unknown Organization [facility] Address [address] [facility] [place] [address] Phone [phone] Care Team Providers Care Contractor General Engineering Name Role Phone Yasemin Newsome PA-C Primary Care Provider [phone] [phone] Reason for Visit * Reason Comments Outpatient Testing Encounter Details Date Type Department Care Team (Late st Contact Info) Description 12/19/2023 11:10 AM EDT Laboratory Laboratory, [facility] [address] [facility] [place] [address] [facility] [address] [facility] [place] [address] Hyponatremia; Hypomagnesemia; HTN, goal below 140/90 Allergies Active Allergy Reactions Criticality Noted Date Comments Bupropion High 01/22/2020 Other reaction(s): SKIN IRRITATION Chlorthalidone Other (Please comment) Medium 3 hyponatremia documented as of this encounter (statuses as of 12/19/2023) Medications Medication Sig Dispensed Refills Start Date [...] THE MORNING 90 Capsule 1 08/17/2023 Active [place] Carbonate 300 MG Oral Capsule (Eskalith) Take [...] as of this encounter (statuses as of 12/19/2023) Active Problems Problem Noted Date Diagnosed Date Dyspnea and respiratory abnormalities 11/15/2022 Abnormal nuclear stress test 07/27/2022 Coronary artery disease invo lving [place] coronary artery of [place] heart with angina pectoris 07/27/2022 Prediabetes 07/10/2022 [...] as of this encounter (statuses as of 12/19/2023) Resolved Problems Problem Noted Date Diagnosed Date Resolved Date Genetic Sleep Disorder Resea [facility] Other*[id number] 05/30/2011 12/01/2015 Acute bronchitis, complicated 08/27/2009 06/08/2017 Pneumonia due to organism 08/27/2009 Overview: ICD-10 update of inactive term ADVANCE DIRECTIVE INFORMATION 01/25/2005 06/08/2017 Overview: No, Advance Directive brochure offered , patient declined. documented as of this encounter (statuses as of 12/19/2023) Immunizations Name Administration Dates Next Due HEP [...] Description 03/13/2024 10:00 AM EST Office Visit [facility] [address] [facility] [place] [phone] Yasemin Newsome PA-C [address] [facility] [phone] 03/20/2024 2:00 PM EST Office Visit Sleep Disorders Ctr [facility] [address] [place] [phone] Francesca Ford CRNP [address] [place] [address] 03/26/2024 8:30 AM EST Office Visit Cardiology, [facility] [address] [place] [address] Darian Welch PA-C [address] [place] [address] 04/14/2024 8:00 AM EST Office Visit Orthopaedics [facility] [address] [facility] [place] [address] Mark García, DO [address] [place] [address] 04/21/2024 8:00 AM EST Office Visit Orthopaedics [facility] [address] [facility] [place] [address] Mark García, DO [address] [place] [address] 04/28/2024 8:00 AM EST Office Visit Orthopaedics [facility] [address] [facility] [place] [address] Mark García, DO [address] [place] [address] 09/01/2024 7:40 AM EDT Office Visit Nephrology, [facility] [address] [place] [address] Radha Sawyer MD [address] [place] [address] 09/04/2024 1:00 PM EDT Office Visit [facility], [place] [address] [place] [address] Yasemin Newsome PA-C [address] [place] [address] Pending Results Name Type Priority Associated Diagnoses Date /Time MAGNESIUM Lab Routine Hypomagnesemia 12/19/2023 10:26 AM EDT BASIC METABOLIC PANEL Lab Routine HTN, goal below 140/90 Hyponatremia Hypomagnesemia 12/19/2023 10:26 AM EDT Scheduled Procedures Name Priority Associated [...] 05/29/2000, Additional history exists GFR 12/16/2024 12/17/2023, 05/1 06/2023, 12/04/2022, Additional history exists HbA1c 12/16/2024 12/17/2023, 03/0 06/2022, 12/23/2021, Additional history exists Colonoscopy 04/06/2025 04/06/2015, 04/06/2015 [...] Visit Diagnoses Diagnosis Hyponatremia Hyposmolality and/or hyponatremia Hypomagnesemia Disorders of magnesium metabolism HTN, goal below 140/90 Unspecified essential hypertension documented in this encounter Care Teams Contractor General Engineering Relationship Specialty Start Date End Date Yasemin Newsome PA-C [address] [facility] [place] [address] PCP - General Physician Director Safety Council 06/11/20 documented as of this encounter
--- OUTSIDE RECORDS SUMMARY | 2024-01-18 23:40 | External Medical Summary ---
Author Name Unknown Address Unknown Organization [id number]:[facility] [place] [address] [place] [address] Laboratory Report Ordering Provider Test Date Status WARREN ADAMS 12/17/2023 13:47:55 Final Observation Date Value Abnormality Reference (Units ) Status BUN 12/17/2023 13:47:55 16 6-20 (mg/dL) Final Creatinine 12/17/2023 13:47:55 1.1 0.6-1.2 (mg/dL) Final Glomerular filtration rate/1.73 sq M.predicted [Volume Rate/Area] in Serum, Plasma or Blood by Creatinine-based formula (CKD-EPI) 12/17/2023 13:47:55 74 >=60 (mL/min) Final eGFR is calculated based on the CKD-EPI 2020 equation. Sodium 12/17/2023 13:47:55 132 Below low normal 135 -146 (mmol/L) Final Potassium 12/17/2023 13:47:55 5.5 Above high normal 3. 5-5.1 (mmol/L) Final Cl 12/17/2023 13:47:55 99 98-107 (mm ol/L) Final CO2 12/17/2023 13:47:55 22 22-32 (mmo l/L) Final Anion gap 12/17/2023 13:47:55 11 7-15 (mmol /L) Final Glucose 12/17/2023 13:47:55 151 Above high normal 70 -120 (mg/dL) Final Calcium 12/17/2023 13:47:55 10.5 Above high normal 8. 4-10.2 (mg/dL) Final Performing Location [facility] [place] [address] [place] [address]
--- OUTSIDE RECORDS SUMMARY | 2024-01-18 23:40 | External Medical Summary ---
Author Name Unknown Address Unknown Organization K01:[facility] [place], [place] - [address] [facility] [address] Laboratory Report Ordering Provider Test Date Status WARREN ADAMS 12/17/2023 13:47:55 Final Observation Date Value Abnormality Reference (Units ) Status HbA1C 12/17/2023 13:47:55 6.3 Above high normal 4. 0-5.6 (%) Final The use of HbA1c to monitor glycemic status is based on normal hemoglobin and HbA composition. This test should not be used in patients with abnormal hemoglobin that affects the half life of the red blood cell or the in vivo glycation rates. Glucose, estimated average 12/17/2023 13:47:55 134 Above high normal <126 (mg/dL) Charly armas Performing Location [facility] [place] [place] - [address] [facility] [facility] [address] [facility] [address]
--- OUTSIDE RECORDS SUMMARY | 2024-01-18 23:40 | External Medical Summary | Summary of Care ---
Author Name Unknown Organization [facility] Address [address] [place] [address] Phone [phone] Care Team Providers Care Administrative Office Specialist Name Role Phone Yasemin Newsome PA-C Primary Care Provider [phone] Reason for Visit * Reason Onset Date Comments MyCode Nonconsent - Not interested at this time 12/17/2023 Encounter Details Date Type Department Care Team (Late st Contact Info) Description 12/17/2023 Orders Only Outcomes Research Department [address] [place] [address] Christiana Galvez CHRA MyCode Nonconsent Documentation Allergies Active Allergy Reactions Criticality Noted Date [...] THE MORNING 90 Capsule 1 08/17/2023 Active [place] Carbonate 300 MG Oral Capsule (Eskalith) Take [...] test 07/27/2022 Coronary artery disease invo lving [place] coronary artery of [place] heart with angina pectoris 07/27/2022 Prediabetes 07/10/2022 [...] Genetic Sleep Disorder Resea [facility] Other*[id number] 05/30/2011 12/01/2015 Acute bronchitis, complicated 08/27/2009 06/08/2017 [...] as of this encounter Progress Notes * Christiana Galvez CHRA - 12/17/2023 11:49 AM EDT MyCode Nonconsent Documentation Jamari Malin was approached in the clinic regarding participation in the [employer] and did not consent. documented in this encounter Plan of Treatment Upcoming Encounters Date Type Department Care Team (Late st Contact Info) Description 03/13/2024 10:00 AM EST Office Visit [address] [phone] Yasemin Newsome PA-C [address] [facility] [place] [address] 03/20/2024 2:00 PM EST Office Visit Sleep Disorders [facility] [address] [place] [address] Francesca Ford CRNP [address] [place] [address] 03/26/2024 8:30 AM EST Office Visit Cardiology, [facility] [address] [place] [address] Darian Welch PA-C [address] [place] [address] 04/14/2024 8:00 AM EST Office Visit Orthopaedics [facility] [address] [place] [address] Mark García, [address] [place] [address] 04/21/2024 8:00 AM EST Office Visit Orthopaedics [facility] [address] [place] [address] Mark García, [address] [place] [address] 04/28/2024 8:00 AM EST Office Visit Orthopaedics [facility] [address] [place] [address] Mark García, DO [address] [place] [address] 09/01/2024 7:40 AM EDT Office Visit Nephrology, [facility] [address] [facility] [place], [place] [address] Radha Sawyer MD [address] [facility] [place] [address] 09/04/2024 1:00 PM EDT Office Visit [facility] [address] [place] [address] Yasemin Newsome PA-C [address] [place] [address] Scheduled Procedures Name Priority Associated Diagnoses Date/Ti [...] 05/29/2000, Additional history exists GFR 09/09/2024 09/10/2023, 08/0 10/2022, 11/07/2022, Additional history exists Colonoscopy 04/06/2025 04/06/2015, [...] filedocumented as of this encounter Care Teams Administrative Office Specialist Relationship Specialty Start Date End Date Yasemin Newsome PA-C [address] [facility] [place] [address] PCP - General Physician Home Theater Expert 06/11/20 documented as of this encounter
--- OUTSIDE RECORDS SUMMARY | 2024-01-18 23:40 | External Medical Summary ---
Author Name Unknown Address Unknown Organization K01:[facility] - [address] [place] [address] Laboratory Report Ordering Provider Test Date Status WARREN ADAMS 12/21/2023 09:53:42 Final Observation Date Value Abnormality Reference (Units ) Status Magnesium 12/21/2023 09:53:42 1.6 1.5-2.6 (m g/dL) Final Performing Location [facility] - [address] [place] [address]
--- OUTSIDE RECORDS SUMMARY | 2024-01-18 23:40 | External Medical Summary | Summary of Care ---
Author Name Unknown Organization [facility] Address [address] [facility] [place] [address] Phone [phone] Care Team Providers Care Crime Data Specialist Name Role Phone Yasemin Newsome PA-C Primary Care Provider [phone] [phone] Reason for Visit * Reason Comments Hospital Follow-Up Patient states that he is here for a ED due to disoriented and labs showed low sodium Encounter Details Date Type Department Care Team (Late st Contact Info) Description 12/17/2023 12:00 PM EDT Office Visit [facility] [address] [place] [address] Yasemin Newsome PA-C [address] [place] [address] HTN, goal below 140/90*; Hyponatremia; [...] THE MORNING 90 Capsule 1 08/17/2023 Active [place] Carbonate 300 MG Oral Capsule (Eskalith) Take [...] test 07/27/2022 Coronary artery disease invo lving [place] coronary artery of [place] heart with angina pectoris 07/27/2022 Prediabetes 07/10/2022 [...] Date Resolved Date Genetic Sleep Disorder Resea [facility] Other*[id number] 05/30/2011 12/01/2015 Acute bronchitis, complicated 08/27/2009 06/08/2017 [...] sodium/) Here for er f/u Was to [facility] 12/15/2023 Presented on stroke alert He was [...] Tablet (Lasix) Lisinopril 40 MG Oral Tablet [place] Carbonate 300 MG Oral Capsule (Eskalith) Omeprazole [...] have reviewed the following results: er report [facility] 12/15/2023 , lab work, etc Assessment [...] 03/13/2024 10:00 AM EST Office Visit [facility] [place] [address] [facility], [place] [phone] Yasemin Newsome PA-C [address] [place] [facility] [place] [place] [address] 03/20/2024 2:00 PM EST Office Visit Sleep Disorders Ctr [facility] [address] [place] [address] Francesca Ford CRNP [address] [place] [address] 03/26/2024 8:30 AM EST Office Visit Cardiology, [facility] [address] [place] [address] Darian Welch PA-C [address] [place] [address] 04/14/2024 8:00 AM EST Office Visit Orthopaedics [facility] [address] [place] [address] Mark García, DO [address] [place] [address] 04/21/2024 8:00 AM EST Office Visit Orthopaedics [facility] [address] [place] [address] Mark García, DO [address] [place] [address] 04/28/2024 8:00 AM EST Office Visit Orthopaedics [facility] [address] [place] [address] Mark García, DO [address] [place] [address] 09/01/2024 7:40 AM EDT Office Visit Nephrology, [facility] [address] [facility] [place] [facility] [address] [place], [place] [address] Radha Sawyer MD [address] [facility] [place], [place] [address] 09/04/2024 1:00 PM EDT Office Visit [facility] [address] [place] [phone] Yasemin Newsome PA-C [address] [place], [place] [phone] Scheduled Orders Name Type Priority Associated Diagnoses [...] glucose documented in this encounter Care Teams Crime Data Specialist Relationship Specialty Start Date End Date Yasemin Newsome PA-C [address] [place] [address] PCP - General Physician Fingerprint Expert 06/11/20 documented as of this encounter
[2024-01-19] MEDS: PANTOprazole 40 MG TAB PO SCH (06:15)
[2024-01-19 06:51] LABS: Basophils # (auto) 0.03 K/uL (0.00-0.20); Basophils % (auto) 0.7 %; Eosinophils # (auto) 0.13 K/uL (0.00-0.50); Eosinophils % (auto) 3.2 %; Hematocrit (blood only) 36.3 % (42.0-52.0); Hemoglobin 11.9 g/dl (14.0-18.0); Immature Granulocytes # (auto) 0.03 K/uL (0.01-0.20); Immature Granulocytes % (auto) 0.7 %; Lymphocytes # (auto) 0.68 K/uL (1.20-3.40); Mean Corpuscular Hemoglobin 32.8 pg (25.0-34.0); Mean Corpuscular Hgb Conc 32.8 g/dL (32.0-36.0); Mean Platelet Volume 11.1 fL (9.4-12.4); Monocytes # (auto) 0.35 K/uL (0.11-0.59); Monocytes % (auto) 8.7 %; Neutrophils # (auto) 2.79 K/uL (1.40-6.50); Neutrophils % (auto) 69.7 %; Platelet Count 60 K/uL (130-400); RDW Coefficient of Variation 13.7 % (11.5-14.5); RDW Standard Deviation 50.2 fL (36.4-46.3); Red Blood Count 3.63 M/uL (4.70-6.10); White Blood Count 4.01 K/ul (4.8-10.8)
[2024-01-19 07:17] LABS: Albumin Level 4.3 gm/dl (3.4-5.0); BUN Creatinine Ratio 15.7 (10-20); Bilirubin,Total 0.7 mg/dl (0.2-1.0); Calcium 9.5 mg/dl (8.6-10.3); Est GFR (African American) 92.2 ml/min; Est GFR (Non-African American) 79.5 ml/min; Globulin 2.1 gm/dl (2.5-4.0); Magnesium 1.9 mg/dl (1.7-2.4); Phosphorus 4.1 mg/dl (2.5-4.9); Potassium 4.4 mmol/L (3.5-5.1); Total Protein 6.4 gm/dl (6.0-8.3)
[2024-01-19 07:31] LABS: Folate (Folic Acid),Ser orPlas 10.24 ng/ml (>5.38)
[2024-01-19 07:35] LABS: Ferritin 178.3 ng/ml (8-388)
[2024-01-19 07:40] LABS: Estimated Average Glucose 117 mg/dl; Hemoglobin A1C 5.7 % (4.5-5.6)
[2024-01-19] MEDS: FUROSEMIDE 20 MG TAB PO SCH (07:41)
[2024-01-19] MEDS: allopurinoL 300 MG TAB PO SCH (07:42)
[2024-01-19] MEDS: ASPIRIN 81 MG ECTAB PO SCH (07:43)
[2024-01-19] MEDS: cloNIDine HCL 0.3 MG TAB PO SCH (07:43)
[2024-01-19] MEDS: ESCITALOPRAM OXALATE 10 MG TAB PO SCH (07:43)
[2024-01-19] MEDS: lisinopril 20 MG TAB PO SCH (07:43)
[2024-01-19] MEDS: ISOSORBIDE MONO EXTENDED REL 60 MG TABCR PO SCH (07:43)
[2024-01-19] MEDS: LORATADINE 10 MG TAB PO SCH (07:44)
[2024-01-19] MEDS: METOPROLOL SUCC 25MG EXT REL TAB PO SCH (07:44)
[2024-01-19] MEDS: SPIRONOLACTONE 25 MG TAB PO SCH (07:45)
--- NOTE | 2024-01-19 10:17 | Neurology Consultation ---
Date of Consultation January 19, 2024 Assessment & Plan (1) Acute confusion: transient confusion, dizziness and chest pain in a 58M with a PMH of tobacco abuse, HTN, recurrent hyponatremia, and polyneuropathy. His exam is currently normal. The dizziness is episodic and improving with reduction of the dose of spironolactone and patient reports the confusion happens every time his sodium is low. I have a low suspicion that these symptoms are secondary to a vascular event and recommend no further neurologic work up inpatient. Plan -- continue ASA -- no need for MRI from my perspective -- wean medications as tolerated to improve dizziness -- neurology will sign off, please page with further questions Telehealth Consultation Telehealth Information Telehealth Information: I performed this visit using a real-time telehealth connection between my location and the patients location ([facility]). After connecting through interactive tele-video, patient was identified by name and date of and/or wristband check.Patient (or authorized healthcare fraud representative) was informed that this was a telemedicine visit and it was being conducted confidentially over secure lines. My office door was closed and no one else was present in the room with me.Patient (or authorized healthcare fraud representative) provided consent to proceed with the visit, expressed an understanding of privacy and security of the telemedicine visit, and gave permission to have a hospital fraud representative in the room in order to assist with the visit and to conduct portions of the visit, as needed. I informed the patient (or authorized healthcare fraud representative) that I reviewed their record and presented the opportunity for them to ask any questions regarding the visit today. The patient agreed to participate. History of Present Illness Reason for Consultation: concern for stroke Attending Physician: Romana Cabrera MD History of Present Illness Yesterday driving home from his work he felt light chest pain, blurry vision, dizziness and he felt like he couldn't walk. He describes the dizziness as room spinning. This has been occurring for the last several months and lasts for a couple of minutes. He will look at the ground and the dizziness will pass, he has fallen one time as a result. This isn't associated with low sodiums and it can happen several times a week, but has been improving as his meat pickler is reducing pills. He also is having is lithium reduced to help. Currently he is at his baseline. He denies headache, fevers, chills, current SOB or chest pain. Allergies Allergy/AdvReac Type Severity Reaction Status Date / Time bupropion AdvReac Intermediate SKIN Verified 01/18/24 19:31 IRRITATION Home Medications Medication Instructions Recorded Confirmed Type allopurinol 300 mg tablet 600 mg PO QAM 01/22/20 01/18/24 History clonidine HCl 0.3 mg tablet 0.3 mg PO BID 01/22/20 01/18/24 History escitalopram oxalate 10 mg tablet 10 mg PO QAM 01/22/20 01/18/24 History lisinopril 40 mg tablet 20 mg PO QAM 01/22/20 01/18/24 History lithium carbonate 300 mg capsule 450 mg PO HS 01/22/20 01/18/24 History loratadine 10 mg tablet 10 mg PO QAM 01/22/20 01/18/24 History zolpidem 10 mg tablet 10 mg PO HS PRN Sleep 12/27/20 01/18/24 History spironolactone 50 mg tablet 50 mg PO QAM 06/21/22 01/18/24 History aspirin 81 mg tablet,delayed 81 mg PO QAM 01/30/23 01/18/24 History release isosorbide mononitrate 60 mg 60 mg PO QAM 04/08/23 01/18/24 History tablet,extended release 24 hr metoprolol succinate 25 mg 25 mg PO QAM 04/08/23 01/18/24 History tablet,extended release 24 hr omeprazole 20 mg capsule,delayed 20 mg PO DAILYBB 04/08/23 01/18/24 History release terazosin 5 mg capsule 5 mg PO HS 04/08/23 01/18/24 History furosemide 20 mg tablet 20 mg PO Q OTHER DAY 01/18/24 01/18/24 History Patient History Medical History (Updated 01/18/24 @ 21:44 by Jaxson Beach DO) Morbid obesity Osteoarthritis 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 Sleep apnea CPAP Follows with [facility] pulmonology Anxiety and depression Gout Hypertension Follows with [facility] cardio/Darian Murphyardo Surgical History Hx of colonoscopy Hx of removal of cyst Right ear Hx of arthroscopy of shoulder Left + repair Family History Other Diabetes Stroke Social History Smoking Status: Never smoker Second Hand Exposure: No; Do You Dip or Chew Tobacco: Yes (1-2 cans/day; advised none DOS); Hx Alcohol Use: Yes Alcohol type: hard liquor Hx Substance Use: No Preferred Language: Bulgarian Communication Ability: Effective Hearing Ability: Normal Plan Coordinator Required: No Beliefs That Will Affect Care: None marital status: Current Living Situation: Spouse Current Living Situation Comment: Lives with and son current occupational status: employed 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 Other Information That Helps Us Care for You: No Feels Safe at Home: Yes Safety Concerns: Feels Safe At This Time Assistive Devices: CPAP Review of Systems see HPI Physical Exam NEUROLOGIC EXAMINATION: Mental Status:alert, oriented to time, place, person, normal recent memory, normal remote memory, normal attention span, normal concentration, normal language, and normal fund of knowledge Cranial Nerves: CN 2 - no visual defect on confrontation and pupils round, equal, reactive to light CN 3, 4, 6 - extra-ocular movements intact and no nystagmus CN 5 - facial sensation intact CN 7 - no facial asymmetry CN 8 - intact hearing CN 9, 10 - palate symmetric, normal gag CN 11 - good shoulder shrug CN 12 - tongue midline MOTOR: Strength was at least antigravity throughout, Pronator drift was absent, and There were no abnormal movements SENSATION: intact GAIT: deferred COORDINATION: no ataxia with finger to nose testing and heel to alba testing REFLEXES: cannot assess over telemedicine Results & Data Vital Signs (Past 12 Hours) Vital Signs Temp Pulse Pulse Resp BP Pulse Ox O2 Del Method 01/19/24 08:09 36.8 C 65 18 177/98 H 97 Room Air 01/19/24 07:36 Room Air 01/19/24 07:13 57 L 01/19/24 04:11 53 L 14 97 01/19/24 03:26 36.8 C 82 20 171/88 H 98 Room Air 01/19/24 00:25 36.3 C L 69 20 185/95 H 99 Room Air 01/19/24 00:20 72 17 95 Laboratory Results Abnormal Lab Results 01/18/24 01/18/24 01/18/24 15:45 21:35 22:00 WBC 3.71 L RBC 3.27 L Hgb 11.0 L Hct 32.8 L MCV 100.3 H MCH 33.6 MCHC 33.5 RDW Std Deviation 49.6 H RDW Coeff of Sonia 13.6 Plt Count 59 L MPV 10.9 Immature Gran % (Auto) 0.5 Neut % (Auto) 81.2 Lymph % (Auto) 9.4 [place] % (Auto) 7.0 Eos % (Auto) 1.6 Baso % (Auto) 0.3 Neut # (Auto) 3.01 Lymph # (Auto) 0.35 L [place] # (Auto) 0.26 Eos # (Auto) 0.06 Baso # (Auto) 0.01 Immature Gran # (Auto) 0.02 Sodium 130 L Potassium 4.5 Chloride 102 Carbon Dioxide 21 Anion Gap 7 BUN 19 Creatinine 1.08 Est Cr Clr Drug Dosing 113.8 Est GFR ( Amer) 86.0 Est GFR (Non-Af Amer) 74.2 BUN/Creatinine Ratio 17.6 Glucose 122 H Estimat Average Glucose Hemoglobin A1c Calcium 9.4 Phosphorus Magnesium Iron TIBC Unsaturated IBC Transferrin % Sat Ferritin Total Bilirubin 0.4 AST 64 H ALT 85 H Alkaline Phosphatase 36 Troponin I High Sens 3.2 6.6 Total Protein 6.2 Albumin 4.3 Globulin 1.9 L Albumin/Globulin Ratio 2.3 H Triglycerides Cholesterol LDL Cholesterol, Calc VLDL Cholesterol, Calc HDL Cholesterol Cholesterol/HDL Ratio Lipase 34 Vitamin B12 Folate Urine Color Yellow Urine Appearance Clear Urine pH 6.0 Ur Specific [place] 1.018 Urine Protein Negative Urine Glucose (UA) Negative Urine Ketones Negative Urine Blood Negative Urine Nitrite Negative Urine Bilirubin Negative Urine Urobilinogen Negative Ur Leukocyte Esterase Trace H Urine WBC (Auto) 0-5 Urine RBC (Auto) 0-2 U Hyaline Cast (Auto) 0-2 U Epithel Cells (Auto) 0-2 Urine Bacteria (Auto) None Seen Urine Osmolality 307 L Ur Random Sodium 74 [place] 1.1 Lyme Disease Screen Negative 01/18/24 01/19/24 23:23 06:11 WBC 4.01 L RBC 3.63 L Hgb 11.9 L Hct 36.3 L MCV 100.0 MCH 32.8 MCHC 32.8 RDW Std Deviation 50.2 H RDW Coeff of Sonia 13.7 Plt Count 60 L MPV 11.1 Immature Gran % (Auto) 0.7 Neut % (Auto) 69.7 Lymph % (Auto) 17.0 [place] % (Auto) 8.7 Eos % (Auto) 3.2 Baso % (Auto) 0.7 Neut # (Auto) 2.79 Lymph # (Auto) 0.68 L [place] # (Auto) 0.35 Eos # (Auto) 0.13 Baso # (Auto) 0.03 Immature Gran # (Auto) 0.03 Sodium 137 Potassium 4.4 Chloride 107 Carbon Dioxide 24 Anion Gap 6 BUN 16 Creatinine 1.02 Est Cr Clr Drug Dosing 120.0 Est GFR ( Amer) 92.2 Est GFR (Non-Af Amer) 79.5 BUN/Creatinine Ratio 15.7 Glucose 114 H Estimat Average Glucose 117 Hemoglobin A1c 5.7 H Calcium 9.5 Phosphorus 4.1 Magnesium 1.9 Iron 166 TIBC 395 Unsaturated IBC 229 Transferrin % Sat 42 Ferritin 178.3 Total Bilirubin 0.7 AST 44 H ALT 71 H Alkaline Phosphatase 30 L Troponin I High Sens 8.9 Total Protein 6.4 Albumin 4.3 Globulin 2.1 L Albumin/Globulin Ratio 2.0 Triglycerides 366 H Cholesterol 160 LDL Cholesterol, Calc 55 VLDL Cholesterol, Calc 73 H HDL Cholesterol 32 Cholesterol/HDL Ratio 5.0 Lipase Vitamin B12 387 Folate 10.24 Urine Color Urine Appearance Urine pH Ur Specific [place] Urine Protein Urine Glucose (UA) Urine Ketones Urine Blood Urine Nitrite Urine Bilirubin Urine Urobilinogen Ur Leukocyte Esterase Urine WBC (Auto) Urine RBC (Auto) U Hyaline Cast (Auto) U Epithel Cells (Auto) Urine Bacteria (Auto) Urine Osmolality Ur Random Sodium [place] Lyme Disease Screen Diagnostic Findings Chest X-Ray 01/18/24 15:24 XR chest 1V portable HISTORY: Chest pain, nonspecific COMPARISON: Chest 12/15/2023. FINDINGS: No pneumothorax. No pleural effusions. The cardiac silhouette remains enlarged. No focal lung consolidations to suggest a pneumonia. No evidence for pulmonary edema. No acute fractures identified. A few bibasilar linear densities favor subsegmental atelectasis or scarring. There are low lung volumes. IMPRESSION: No significant change compared to the prior study. No acute process. Stable cardiomegaly. ACT 112: Negative or not required by law. Electronically signed by: Patrick Swanson M.D. 01/18/2024 4:00 PM Head CTA 01/18/24 15:36 CT angio head wo/w CLINICAL HISTORY: Altered mental status. COMPARISON STUDY: Head CT and CTA of the head December 15, 2023. TECHNIQUE: Unenhanced and arterial phase imaging of the head was performed. Intravenous injection of 120 cc of Optiray 320 IV was uneventful. Sagittal and coronal reconstructions were viewed as well as maximal intensity projections on an independent 3-D workstation. Automated exposure control was utilized for the study. A dose lowering technique was utilized adhering to the principles of ALARA. FINDINGS: No acute intracranial hemorrhage, midline shift or mass effect is present. Ventricular system is stable. The basal cisterns are patent. There are nodular axial collections. Cerebellar atrophy is again noted. There are no findings to suggest acute dural sinus thrombosis or acute territorial infarct. A large right mastoid effusion with fluid within the right middle ear is unchanged. The bilateral M1, M2, A1 and A2 segments are patent. There is moderate plaque within the bilateral cavernous carotids without significant stenosis. No intracranial vessel occlusion is identified. There is persistence of the right posterior cerebral artery. There is no intracranial aneurysm. IMPRESSION: 1. No acute intracranial findings. 2. No large vessel occlusion. No intracranial aneurysm. 3. No change in a right mastoid effusion with fluid within the right middle ear. ACT 112: Negative or not required by law. Electronically signed by: Darinel Yusuf M.D. 01/18/2024 5:42 PM Neck CTA 01/18/24 15:36 CT ANGIOGRAPHY OF THE NECK WITH CONTRAST CLINICAL HISTORY: Altered mental status. COMPARISON STUDY: CTA of the neck December 15, 2023. Technique: CT angiography of the carotid and vertebral arteries was obtained using Optiray and 3D reconstruction on an independent workstation. NASCET criteria was utilized. Automated exposure control was utilized for the study. A dose lowering technique was utilized adhering to the principles of ALARA. CT DOSE: 1249.85 mGy.cm Findings: Visualized portions of the lung apices are unremarkable. There is no cervical spine fracture. There is no cervical lymphadenopathy. There is extensive calcified plaque within the right carotid bifurcation which results in 30% stenosis of the proximal right internal carotid artery. There is moderate pl aque within the proximal left internal carotid artery without stenosis. There is moderate stenosis at the origin of the right vertebral artery, suboptimally assessed on this exam. Left vertebral artery is patent. There is no aneurysm or dissection within the neck. Tortuosity of the distal cervical bilateral internal carotid arteries is incidentally noted. IMPRESSION: 1. 30% stenosis of the proximal right internal carotid artery due to calcified atherosclerotic plaque. No stenoses within the cervical left internal carotid artery. 2. Moderate stenosis at the origin of the right vertebral artery. ACT 112: Negative or not required by law. Electronically signed by: Darinel Yusuf M.D. 01/18/2024 5:56 PM
--- NOTE | 2024-01-19 11:26 | Electrocardiogram Report ---
Test Reason : Blood Pressure : */* mmHG Vent. Rate : 74 BPM Atrial Rate : 74 BPM P-R Int : 172 ms QRS Dur : 104 ms QT Int : 408 ms P-R-T Axes : 21 -12 39 degrees QTcB Int : 452 ms Normal sinus rhythm Normal ECG When compared with ECG of 15-Dec-2023 18:46, No significant change was found Confirmed by Gaetano Hewitt ([id number]) on 01/19/2024 11:26:00 AM Referred By: REFERRED SELF Confirmed By: Gaetano Hewitt
[2024-01-19 15:33] VITALS: BP 133/79; RESP 18; TEMP 98.2; O2SAT 94
[2024-01-19] MEDS ORDERED: STROKE PATIENT DISCHARGE STA (16:09)
--- NOTE | 2024-01-19 16:15 | Discharge Summary ---
Date of Service January 19, 2024 Admission HPI Per Admitting Provider Patient is a 58-year-old male with past medical history significant for bipolar disorder,sleep apnea, CAD, hypertension, chronic diastolic heart failure, prediabetes, gout, GERD, presenting with concern for episodes of dizziness and confusion while driving as well as chest pain. 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 Noted dizziness and episodes of confusion. States he already has cataracts and knows he should not be driving so he pulled over with episode of dizziness and confusion. States that he has had 3 episodes of dizziness and confusion this week and this has him very concerned. States that it feels like sometimes he cannot find words or he "" zones out." States that when the ambulance came he was able to answer some questions but not others. At the time of admission denies current symptoms states that chest pain and confusion has resolved. States this is the first time that he has had associated chest pain, does follow with cardiology and states he was told that his heart is "good". Epic chart review shows patient has had intermittent orthostatic hypotension as well as dizziness and has been having his medications adjusted to help. Teraz osin has been decreased. States his spironolactone was also recently decreased. States that he is typically prescribed lithium 450 mg for his bipolar however the pharmacy does not have the 150 mg pill in stock. Leaves that his symptoms are related to his medications. Patient is agreeable to staying overnight but jokingly asks what time he will be discharged in the morning. Patient states that he drinks 2 shot glasses daily of Sandoval Sanon. States he has done this for a year, states before that he drank beer for about 10 years daily but was told to stop that. Last drink was yesterday. Admission Exam Per Admitting Provider General: Alert, oriented. No acute distress Psych: Appropriate mood and affect Neuro: hands tremulous, CN 2 through 12 grossly intact HEENT: NC/AT CV: RRR Resp: Breath sounds clear bilaterally, no increased effort of breathing. Abdomen: protuberant, nontender Extremities: trace edema in lower extremities bilaterally. Principal Diagnosis Dizziness, strokelike symptoms Chronic alcohol use Hyponatremia Discharge Exam General: Alert, oriented. No acute distress Psych: Appropriate mood and affect Neuro: grossly normal, moves extremities. HEENT: NC/AT CV: RRR Resp: Breath sounds clear bilaterally, no increased effort of breathing. Abdomen: protuberant, nontender Extremities: trace edema in lower extremities bilaterally. Discharge Data Allergies Allergy/AdvReac Type Severity Reaction Status Date / Time bupropion AdvReac Intermediate SKIN Verified 01/18/24 19:31 IRRITATION Consultations 01/18/24 18:38 ED Decision to Admit Stat 01/18/24 21:09 Consult Neurology Routine Ordered Studies 01/18/24 15:36 CT angio head wo/w Stat CT angio neck with con Stat Hospital Course (1) Stroke-like symptoms: Plan Per prior attending with addendum: Patient is a 58-year-old male with past medical history significant for bipolar disorder,sleep apnea, CAD, hypertension, chronic diastolic heart failure, prediabetes, gout, GERD, presenting with concern for episodes of dizziness and confusion while driving as well as chest pain. Altered mental status, transient Dizziness Strokelike symptoms patient with known history of intermittent orthostasis, hyponatremia. Previous dizziness improved after decrease in terazosin Head CTA unremarkable Neck CTA noting "30% stenosis of the proximal right internal carotid artery due to calcified atherosclerotic plaque" and "Moderate stenosis at the origin of the right vertebral artery." Brain MRI pending Echo pending Orthostatic vitals pending Lyme screen pending UA pending PT OT eval, speech eval Neurology consult appreciate further recs Chest pain EKG with no acute changes Troponin x 1 within normal limits, continue to trend Echo pending as above Continue to monitor on telemetry Chronic alcohol use Patient states that he drinks 2 shot glasses daily of Sandoval Sanon States he has done this for a year, states before that he drank beer for about 10 years daily Last drink was yesterday AWSS at risk protocol with as needed Ativan banana bag ordered Continue to monitor on telemetry Pancytopenia Anemia Patient pancytopenic CBC in July 2022 in [facility] was normal at that time Peripheral smear pending Anemia panel with iron studies, ferritin, folate and B12 pending Hyponatremia Chronic history of this Sodium 130 on admission urine studies pending received a liter of fluid in the emergency room Continue to monitor with a.m. labs Continue other home meds as ordered. DVT prophylaxis: SCDs in the setting of thrombocytopenia Diet: Heart healthy Dispo: Admit to med/surg with telemetry Addendum 01/19/2024: Patient was seen and examined at bedside as a follow-up of altered mental status/transient confusion/dizziness which is likely multifactorial given alcohol use history, hyponatremia. Stroke ruled out, discussed with neurology. No need for MRI. head imaging and echo reviewed. Troponin x 3 negative. Patient advised to quit smoking and drinking. Will add folate and vitamin B12 as they are low normal. Patient is hemodynamically stable and reports no chest pain and reports improvement in his dizziness completely. Patient states that he is being weaned off of Aldactone as an outpatient and believes that his dizziness is due to low sodium level. Sodium level are normal today. Patient would like to go home today. He is being discharged with following instructions at the point of discharge: Follow-up with your primary care physician within a week time and likely you will need labs CBC/CMP/magnesium/phosphorus. Your evaluated for strokelike symptoms, imagings of head and heart were done and no acute findings were noted. For your hyponatremia/low sodium level, take low-sodium diet [less than 2 g/day of sodium], high-protein diet, recommend alcohol cessation. For your low blood levels, you will be discharged on vitamin B12 and folate supplement. Your A1c is 5.7 meaning you have prediabetes. Encourage lifestyle modification including healthy diet and incorporation of daily exercise regimen to prevent prediabetes progressing into full-blown diabetes. You will need repeat A1c in about 3 months time, coordinate with your PCP office to set up the test. Take your medications as prescribed. Please make sure that you are able to get your medications today by calling your pharmacy before you leave the hospital so that your treatment continuity is not broken. Home Health Attestation I certify that this patient is under my care and that I, or a physicians home health assistant working with me, had a face to-face encounter that meets the home health [id number] encounter requirements with this patient. The encounter with the patient was in whole, or in part, for the following medical condition, which is the primary reason for home health care (list medical condition): I certify that, based on my findings, the following services are medically necessary home health services: My clinical findings support the need for the above services because: Further, I certify that my clinical findings support that this patient is homebound (i.e. absences from home require considerable and taxing effort and are for medical reasons or denominational services or infrequently or of short duration when for other reasons) because: Certification for Home Health Services: Based on the above findings, I certify that this patient is confined to the home and needs intermittent long term care, physical therapy and/or speech therapy or continues to need occupational therapy. The patient is under my care, and I have initiated the establishment of the plan of care. This patient will be followed by a physician who will periodically review the plan of care. Total Time Total Time Spent Total Time Spent (In Minutes): 45 Discharge Plan Discharge Items Patient Disposition: Home - Self-Care Reason For Visit: Chest pain Discharge Diagnosis: Dizziness, strokelike symptoms Chronic alcohol use Hyponatremia Activity: Resume your previous activity Non-emergency contact: Primary Care Provider Call non-emergency contact if: you have any medication questions, your symptoms worsen and your temperature is above 101 Follow-up/Referrals: Yasemin Newsome PA-C [Primary Care Provider] - Diet: Heart Healthy Addtl Attending Provider Instructions: Follow-up with your primary care physician within a week time and likely you will need labs CBC/CMP/magnesium/phosphorus. Your evaluated for strokelike symptoms, imagings of head and heart were done and no acute findings were noted. For your hyponatremia/low sodium level, take low-sodium diet [less than 2 g/day of sodium], high-protein diet, recommend alcohol cessation. For your low blood levels, you will be discharged on vitamin B12 and folate supplement. Your A1c is 5.7 meaning you have prediabetes. Encourage lifestyle modification including healthy diet and incorporation of daily exercise regimen to prevent prediabetes progressing into full-blown diabetes. You will need repeat A1c in about 3 months time, coordinate with your PCP office to set up the test. Take your medications as prescribed. Please make sure that you are able to get your medications today by calling your pharmacy before you leave the hospital so that your treatment continuity is not broken. Pending Studies at Discharge: No Stand-Alone Forms: My [facility] [employer], Smoking Cessation Medications and DC Order Prescriptions: New cyanocobalamin (vitamin B-12) 100 mcg tablet 100 mcg PO DAILY Qty: 30 0RF folic acid 1 mg tablet 1,000 mcg PO DAILY Qty: 30 0RF Continued aspirin 81 mg tablet,delayed release (DR/EC) 81 mg PO QAM clonidine HCl 0.3 mg tablet 0.3 mg PO BID lithium carbonate 300 mg capsule 450 mg PO HS allopurinol 300 mg tablet 600 mg PO QAM lisinopril 40 mg tablet 20 mg PO QAM loratadine 10 mg tablet 10 mg PO QAM escitalopram oxalate 10 mg tablet 10 mg PO QAM zolpidem 10 mg tablet 10 mg PO HS PRN (Reason: Sleep) spironolactone 50 mg Tablet 50 mg PO QAM terazosin 5 mg capsule 5 mg PO HS omeprazole 20 mg capsule,delayed release(DR/EC) 20 mg PO DAILYBB metoprolol succinate 25 mg tablet extended release 24 hr 25 mg PO QAM isosorbide mononitrate 60 mg tablet extended release 24 hr 60 mg PO QAM furosemide 20 mg tablet 20 mg PO Q OTHER DAY Discharge Orders: Discharge Order (Routine); Ordered 01/19/24 Ordered By: Romana Cabrera Admission Data Admit Date/Time: 01/18/24 18:57 Attending Provider: Romana Cabrera Admit Provider: Jimena Borrego Primary Care Provider: Yasemin Newsome Other Providers: Jimena Borrego; Fernando Perez
[2024-01-19 16:29] VITALS: PULSE 64
[2024-01-19] MEDS ORDERED: TERAZOSIN HCL 5 MG CAP PO SCH (21:00)
[2024-01-19] MEDS ORDERED: LITHIUM CARBONATE 300 MG TAB PO SCH (21:00)
== END 2024-01-19 17:35 | disposition home or self-care (01) | DRG 948 ==
LOC: ED 15:20 → SUATTDRO 18:57 → 2N 18:57 → INTOOBSV 18:57 → 2N 20:30